=== PATIENT | male | born 1930 | race Caucasian/White ===

== ENCOUNTER 2017-06-04 12:25 | Inpatient (IN) | payer MEDICARE, OTHER ==
[~2017-06-04] VITALS: Ht 177.8 cm; Wt 93.9 kg
[~2017-06-04 12:25] MED LIST: AMLO5TAB4 PO; ASPI-605 PO; ATOR40TA PO; BISA-79 PO; CARB-93 PO; CARV20CP PO; CHOL200074 PO; DIAZ5TAB PO; ELAVIL PO; PROVENTIL HHN; PULMICORT HHN; XOPENEX HHN
--- NOTE | 2017-06-04 12:41 | NUR ---
DR THOMAS AT THE BEDSIDE FOR EVAL AND EXAM.
[2017-06-04] MEDS ORDERED: CARB-93 PO (12:56)
[2017-06-04] MEDS ORDERED: IPRA12.9 IH (12:56)
[2017-06-04] MEDS ORDERED: ACET-73 PO (12:56)
[2017-06-04] MEDS ORDERED: CBD (12:56)
[2017-06-04] MEDS ORDERED: GUAI120013 PO (12:56)
[2017-06-04] MEDS ORDERED: IV NORMAL SALINE 1000 ML BAG IV ONE (13:00)
[2017-06-04] MEDS ORDERED: AZITHROMYCIN IV 500 MG in IV DEXTROSE 5% 250 ML IV ONE (13:00)
[2017-06-04] MEDS ORDERED: CEFTRIAXONE 1 G in IV DEXTROSE 5% 50 ML IV ONE (13:00)
[2017-06-04] MEDS ORDERED: HYDR-3326 PO (13:03)
[2017-06-04] MEDS ORDERED: CANNABIS OIL SL (13:03)
[2017-06-04 13:27] LABS: BASOPHILS # (AUTO) 0.1 K/uL (0.0-8.0); BASOPHILS % (AUTO) 1.4 % (0.0-2.0); EOSINOPHILS # (AUTO) 0.1 K/uL (0.0-0.7); EOSINOPHILS % (AUTO) 0.8 % (0.0-7.0); HEMATOCRIT 40.1 % (40-50); HEMOGLOBIN 13.3 G/DL (14.0-18.0); LYMPHOCYTES # (AUTO) 1.1 K/UL (0.8-4.8); LYMPHOCYTES % (AUTO) 11.4 % (20.5-51.5); MEAN CORPUSCULAR HGB CONC 33 g/dL (32.0-37.0); MEAN CORPUSCULAR VOLUME 96.2 FL (82.0-92.0); MONOCYTES # (AUTO) 0.5 K/UL (0.1-1.30); MONOCYTES % (AUTO) 4.5 % (0.0-11.0); NEUTROPHILS # (AUTO) 8.2 K/UL (1.8-8.9); NEUTROPHILS % (AUTO) 81.9 % (38.5-71.5); PLATELET COUNT (AUTO) 188 K/UL (150-450); RED BLOOD CELL COUNT(AUTO) 4.17 MIL/UL (4.7-6.1); WHITE BLOOD COUNT (AUTO) 10.1 K/UL (4.0-11.2)
[2017-06-04 13:28] LABS: CARBON DIOXIDE 30 mmol/L (21-32); CHLORIDE 105 mmol/L (98-107); CREATININE 1.2 mg/dL (0.6-1.3); GLUCOSE 99 mg/dL (74-106); POTASSIUM 4.4 mmol/L (3.5-5.1); UREA NITROGEN, BLOOD 19 mg/dL (7-18)
[2017-06-04 13:34] LABS: ALANINE AMINOTRANSFERASE 27 U/L (16-63); ALKALINE PHOSPHATASE 58 U/L (50-136); ASPARTATE AMINOTRANSFERASE 31 U/L (15-37); BILIRUBIN,DIRECT 0.2 mg/dL (0.0-0.2); BILIRUBIN,TOTAL 0.7 mg/dL (0.2-1.0); TOTAL PROTEIN, SERUM 6.6 g/dL (6.4-8.2)
[2017-06-04] MEDS ORDERED: CEFTRIAXONE 1 G VIAL ONE (13:44)
[2017-06-04] MEDS ORDERED: AZITHROMYCIN 500 MG VIAL IV ONE (13:44)
[2017-06-04 13:49] LABS: BAND % (MANUAL) 12 % (0-10); BASOPHILS % (MANUAL) 1 % (0-2); LYMPHOCYTES % (MANUAL) 12 % (20-40); MONOCYTES % (MANUAL) 7 % (2-10); NEUTROPHILS % (MANUAL) 68 % (42-75)
[2017-06-04] MEDS ORDERED: HYDROCODONE/APAP 5-325MG TABLET PO ONE (14:15)
[2017-06-04 14:33] LABS: *BILIRUBIN,URIN NEGATIVE (NEGATIVE); *BLOOD, URINE Trace-lysed (NEGATIVE); *CLARITY,URINE CLEAR (CLEAR); *COLOR,URINE YELLOW (YELLOW); *KETONES,URINE NEGATIVE (NEGATIVE); *PROTEIN,URINE NEGATIVE (NEGATIVE); *UROBILINOGEN,URINE 0.2 E.U./dl (NORMAL); LEUKOCYTE ESTERASE ,URINE NEGATIVE (NEGATIVE); NITRITE, URINE NEGATIVE (NEGATIVE); UGLUCOSE NEGATIVE (NEGATIVE)
[2017-06-04] MEDS ORDERED: HYDROCODONE/APAP 5-325MG TABLET ONE (14:38)
[2017-06-04 14:39] LABS: BACTERIA,URINE NONE SEEN /HPF (NONE SEEN); MUCUS,URINE FEW /LPF (0-FEW); SQUAMOUS EPITHELIAL CELL,UR FEW /HPF (NONE SEEN); WBC,URINE 0-3 /HPF (0-3)
--- NOTE | 2017-06-04 14:50 | NUR ---
BELONGING LIST COMPLETED AND PLACED IN THE CHART, NOT CANDIDATE FOR MRSA.
[2017-06-04 15:48] VITALS: BP 128/61
[2017-06-04] MEDS ORDERED: TEMAZEPAM 15 MG CAPSULE PO PRN (18:15)
[2017-06-04] MEDS ORDERED: MAGNESIUM HYDROXIDE 30 ML LIQUID UDC PO PRN (18:15)
[2017-06-04] MEDS ORDERED: ONDANSETRON 4 MG/2 ML VIAL IV PRN (18:15)
[2017-06-04] MEDS ORDERED: ELAVIL 10 MG PO SCH (18:15)
[2017-06-04] MEDS ORDERED: TEMAZEPAM 7.5 MG CAPSULE PO PRN (18:45)
--- NOTE | 2017-06-04 18:46 | NUR ---
PHARMACY CLINICAL NOTES: VANCOMYCIN DOSING Subjective: 86 yo male with DX of pneumoniae. MD ordered Vanco and Zosyn Objective: bun/scr 19/1.2m wbc 10.1 temp 98.3; dosing wt = 207 lbs; blood CX and UC are pending Assessment/Plan: will dose vancomycin as 1500 mg IVPB q20h; estimated peak 38 and trough of 16.51. RX will order trough prior to 4th dose (not ordered yet) and will adjust the dose as necessary. Will continue monitoring the renal function.
--- NOTE | 2017-06-04 19:30 | NUR ---
Bedside reporting with JOSE Rascon. Patient sleeping at this time. Not in distress. HOB elevated with continuos O2 at 2L via NC, saturating 93% at this time. IVF infusing well on RW, intact and patent. No s/s of infiltration noted. Multiple skin issues noted due to reported fall at home. Safety measures and fall precaution maintained. Continue current plan of care.
[2017-06-04 20:00] VITALS: BP 121/57
[2017-06-04] MEDS ORDERED: VANCOMYCIN IV 1,500 MG in IV DEXTROSE 5% 500 ML IV SCH (20:00)
--- NOTE | 2017-06-04 20:00 | NUR ---
Pictures taken on skin problems. at bedside giving additional information regarding patient activities.
[2017-06-04] MEDS ORDERED: DIATR MEGLU/DIATRIZOATE SODIUM 30 ML SOLUTION ONE (20:46)
[2017-06-04] MEDS ORDERED: DOCUSATE SODIUM 250 MG CAPSULE PO SCH (21:00)
--- NOTE | 2017-06-04 21:00 | NUR ---
Instructed by to hold all meds due till he comes back from CT.
[2017-06-04] MEDS: ALBUTEROL SULFATE 1.25 MG/3 ML NEBU NEB PRN (21:01)
[2017-06-04] MEDS: IPRATROPIUM BROMIDE 0.5 MG/2.5 ML NEBU NEB PRN (21:01)
--- NOTE | 2017-06-04 22:30 | NUR ---
To Radiology for CT scan via bed.
[2017-06-04] MEDS ORDERED: NORMAL SALINE FLUSH 10 ML DISP.SYRIN ONE (22:53)
[2017-06-04] MEDS ORDERED: IOHEXOL 300MG/ML 100 ML INFUS..BTL ONE (22:53)
[2017-06-04] MEDS ORDERED: IV NORMAL SALINE 250 ML IV ONE (22:54)
[2017-06-04] MEDS: IV 1/2NS 1000 ML 1,000 ML IV PRN (23:13)
--- NOTE | 2017-06-04 23:15 | NUR ---
Back from CT.
[2017-06-04] MEDS: DOCUSATE SODIUM 100 MG CAPSULE PO SCH (23:21)
[2017-06-04] MEDS: AMITRIPTYLINE HCL 10 MG TABLET PO SCH (23:21)
[2017-06-04] MEDS: ATORVASTATIN 40 MG TABLET PO SCH (23:21)
[2017-06-04] MEDS: HYDROCODONE/APAP 5-325MG TABLET PO PRN (23:22)
--- NOTE | 2017-06-04 23:25 | NUR ---
Complaint of generalized pain, medicated as needed and ordered. Will monitor.
[2017-06-04] MEDS: PIPERACILLIN/TAZOBACTAM/D5W 3.375 G in PREMIXED 1 EACH IV SCH (23:26)
[2017-06-05] VITALS: BP 130/65
[2017-06-05] MEDS: ACETAMINOPHEN 325 MG TABLET PO PRN (02:41)
--- NOTE | 2017-06-05 02:43 | NUR ---
Complaint of right shoulder pain, medicated as needed. Will monitor.
[2017-06-05 04:00] VITALS: BP 101/46
[2017-06-05] MEDS: PIPERACILLIN/TAZOBACTAM/D5W 3.375 G in PREMIXED 1 EACH IV SCH ×3 (05:42→21:28)
[2017-06-05] MEDS: PANTOPRAZOLE SODIUM 40 MG TABLET.DR PO SCH (06:32)
--- NOTE | 2017-06-05 06:40 | NUR ---
Slept good. No further complaint presented. All needs attended and met. IV intact and patent, no s/s of infiltration. No significant event reported all night. Continue care as planned.
[2017-06-05 07:03] LABS: THYROID STIMULATING HORMONE 0.499 mIU/mL (0.358-3.740)
[2017-06-05 07:04] LABS: BASOPHILS % (AUTO) 0.1 % (0.0-2.0); EOSINOPHILS # (AUTO) 0.2 K/uL (0.0-0.7); EOSINOPHILS % (AUTO) 1.8 % (0.0-7.0); HEMOGLOBIN 11.6 G/DL (14.0-18.0); LYMPHOCYTES # (AUTO) 2.1 K/UL (0.8-4.8); LYMPHOCYTES % (AUTO) 19.4 % (20.5-51.5); MEAN CORPUSCULAR HEMOGLOBIN 32.3 UUG (27.0-31.0); MEAN CORPUSCULAR HGB CONC 33 g/dL (32.0-37.0); MEAN CORPUSCULAR VOLUME 98.1 FL (82.0-92.0); MONOCYTES # (AUTO) 0.7 K/UL (0.1-1.30); MONOCYTES % (AUTO) 6.7 % (0.0-11.0); NEUTROPHILS # (AUTO) 7.7 K/UL (1.8-8.9); PLATELET COUNT (AUTO) 150 K/UL (150-450); WHITE BLOOD COUNT (AUTO) 10.7 K/UL (4.0-11.2)
[2017-06-05 07:12] LABS: HEMATOCRIT 35.4 % (40-50); RED BLOOD CELL COUNT(AUTO) 3.61 MIL/UL (4.7-6.1)
[2017-06-05 07:29] LABS: ALANINE AMINOTRANSFERASE 19 U/L (16-63); ALKALINE PHOSPHATASE 51 U/L (50-136); ASPARTATE AMINOTRANSFERASE 20 U/L (15-37); BILIRUBIN,TOTAL 0.7 mg/dL (0.2-1.0); CARBON DIOXIDE 31 mmol/L (21-32); CHLORIDE 105 mmol/L (98-107); CHOLESTEROL 82 mg/dL (<200); CREATININE 1.2 mg/dL (0.6-1.3); GLUCOSE 92 mg/dL (74-106); HDL CHOLESTEROL 49 mg/dL (40-60); MAGNESIUM 1.8 mg/dL (1.8-2.4); PHOSPHOROUS 3.4 mg/dL (2.5-4.9); POTASSIUM 3.9 mmol/L (3.5-5.1); TOTAL PROTEIN, SERUM 5.7 g/dL (6.4-8.2); TRIGLYCERIDES 69 MG/DL (30-150); UREA NITROGEN, BLOOD 17 mg/dL (7-18)
--- NOTE | 2017-06-05 07:30 | NUR ---
Bedside report given to [place], RN
[2017-06-05] MEDS: AMLODIPINE 5 MG TABLET PO SCH (08:36)
[2017-06-05] MEDS: ASPIRIN EC 81 MG TABLET.DR PO SCH (08:36)
[2017-06-05] MEDS: CARBIDOPA/LEVODOPA 25-100MG TABLET PO SCH ×2 (08:37→16:23)
[2017-06-05] MEDS: HYDROCODONE/APAP 5-325MG TABLET PO PRN ×2 (08:38→20:12)
[2017-06-05 09:22] LABS: BAND % (MANUAL) 10 % (0-10); BASOPHILS % (MANUAL) 1 % (0-2); EOSINOPHILS % (MANUAL) 1 % (0-8); LYMPHOCYTES % (MANUAL) 17 % (20-40); MONOCYTES % (MANUAL) 7 % (2-10); NEUTROPHILS % (MANUAL) 64 % (42-75)
[2017-06-05] MEDS: IPRATROPIUM BROMIDE 0.5 MG/2.5 ML NEBU NEB PRN ×2 (10:25→19:59)
[2017-06-05] MEDS: ALBUTEROL SULFATE 1.25 MG/3 ML NEBU NEB PRN ×2 (10:25→19:59)
[2017-06-05 12:32] VITALS: BP 114/60
[2017-06-05 16:00] VITALS: BP 100/52
[2017-06-05] MEDS: IV 1/2NS 1000 ML 1,000 ML IV PRN (16:23)
--- NOTE | 2017-06-05 19:30 | NUR ---
RECEIVED PATIENT LAYING IN BED COMFORTABLY. HOB ELEVATED. NO ACUTE DISTRESS NOTED. SPEECH SLURRED AND DELAYED. PATIENT IS ON 02 2L NC. NOTED MULTIPLE BRUISING ON ARMS AND LEGS. SAFETY INITIATED. CALL LIGHT WITHIN REACH. FALL PRECAUTIONS INITIATED. SITTER AT BEDSIDE FOR SAFETY. WILL CONTINUE TO MONITOR
[2017-06-05] MEDS: DOCUSATE SODIUM 100 MG CAPSULE PO SCH (20:11)
[2017-06-05] MEDS: ATORVASTATIN 40 MG TABLET PO SCH (20:12)
[2017-06-05] MEDS: AMITRIPTYLINE HCL 10 MG TABLET PO SCH (20:12)
[2017-06-06] MEDS: ACETAMINOPHEN 325 MG TABLET PO PRN ×3 (00:01→20:14)
[2017-06-06] MEDS: IPRATROPIUM BROMIDE 0.5 MG/2.5 ML NEBU NEB PRN ×2 (05:15→18:38)
[2017-06-06] MEDS: ALBUTEROL SULFATE 1.25 MG/3 ML NEBU NEB PRN ×2 (05:15→18:38)
[2017-06-06] MEDS: PIPERACILLIN/TAZOBACTAM/D5W 3.375 G in PREMIXED 1 EACH IV SCH ×2 (05:25→14:41)
[2017-06-06] MEDS: HYDROCODONE/APAP 5-325MG TABLET PO PRN (05:32)
[2017-06-06] MEDS: PANTOPRAZOLE SODIUM 40 MG TABLET.DR PO SCH (06:15)
[2017-06-06 06:55] LABS: BASOPHILS % (AUTO) 0.4 % (0.0-2.0); EOSINOPHILS # (AUTO) 0.2 K/uL (0.0-0.7); EOSINOPHILS % (AUTO) 2.8 % (0.0-7.0); HEMOGLOBIN 12.2 G/DL (14.0-18.0); LYMPHOCYTES # (AUTO) 1.8 K/UL (0.8-4.8); LYMPHOCYTES % (AUTO) 26.2 % (20.5-51.5); MEAN CORPUSCULAR HEMOGLOBIN 32.8 UUG (27.0-31.0); MEAN CORPUSCULAR HGB CONC 34 g/dL (32.0-37.0); MEAN CORPUSCULAR VOLUME 96.9 FL (82.0-92.0); MONOCYTES # (AUTO) 0.4 K/UL (0.1-1.30); NEUTROPHILS # (AUTO) 4.3 K/UL (1.8-8.9); NEUTROPHILS % (AUTO) 64.6 % (38.5-71.5); PLATELET COUNT (AUTO) 153 K/UL (150-450); RED BLOOD CELL COUNT(AUTO) 3.71 MIL/UL (4.7-6.1); WHITE BLOOD COUNT (AUTO) 6.7 K/UL (4.0-11.2)
--- NOTE | 2017-06-06 07:02 | NUR ---
NO CHANGES T/O SHIFT. SITTER AT BEDSIDE. NO ACUTE DISTRESS NOTED. TELE SINUS INGE. SAFETY AND COMFORT MAINTAINED T/O SHIFT. CALL LIGHT WITHIN REACH.
[2017-06-06 07:42] LABS: ALANINE AMINOTRANSFERASE 11 U/L (16-63); ALKALINE PHOSPHATASE 54 U/L (50-136); ASPARTATE AMINOTRANSFERASE 17 U/L (15-37); BILIRUBIN,TOTAL 0.4 mg/dL (0.2-1.0); CARBON DIOXIDE 30 mmol/L (21-32); CHLORIDE 104 mmol/L (98-107); CREATININE 1.2 mg/dL (0.6-1.3); GLUCOSE 107 mg/dL (74-106); MAGNESIUM 1.9 mg/dL (1.8-2.4); PHOSPHOROUS 3.6 mg/dL (2.5-4.9); POTASSIUM 4.1 mmol/L (3.5-5.1); TOTAL PROTEIN, SERUM 6.1 g/dL (6.4-8.2); UREA NITROGEN, BLOOD 13 mg/dL (7-18)
[2017-06-06] MEDS: ASPIRIN EC 81 MG TABLET.DR PO SCH (08:14)
[2017-06-06] MEDS: CARBIDOPA/LEVODOPA 25-100MG TABLET PO SCH ×2 (08:14→17:11)
[2017-06-06] MEDS: AMLODIPINE 5 MG TABLET PO SCH (08:14)
[2017-06-06] MEDS: GENTAMICIN SULFATE OPHT DROP 5 ML BOTTLE EACHEYE SCH ×2 (10:12→14:43)
[2017-06-06 13:19] VITALS: BP 120/67
[2017-06-06 15:22] VITALS: BP 125/60
[2017-06-06] MEDS ORDERED: DOCU100C36 PO (17:25)
[2017-06-06] MEDS ORDERED: AMIT10TA32 PO (17:25)
[2017-06-06] MEDS ORDERED: MAGN400O6 PO (17:25)
[2017-06-06] MEDS ORDERED: TEMA7.5C PO (17:25)
[2017-06-06] MEDS ORDERED: BUDESONIDE 0.5 MG/2 ML NEBU NEB SCH (19:30)
--- NOTE | 2017-06-06 19:30 | NUR ---
RECEIVED PATIENT LAYING IN BED COMFORTABLY. VIVIAN AND 1:1 SITTER AT BEDSIDE. PATIENT IS ON 02 2L NC. NO ACUTE DISTRESS NOTED. WILL CONTINUE TO MONITOR. PLAN TO D/C PTNT IN ARU.
--- NOTE | 2017-06-06 20:30 | NUR ---
PATIENT WAS D/C TO ARU. TRANSPORTED VIA WHEELCHAIR. REPORT GIVEN TO KAMI OSORIO LIST WAS CHECKED. D/C PROTOCOL FOLLOWED.
[2017-06-06] MEDS ORDERED: CEFTRIAXONE 1 G in IV DEXTROSE 5% 50 ML IV SCH (21:00)
[2017-06-06] MEDS ORDERED: ALBU2.5V13 IH (22:18)
[2017-06-06] MEDS ORDERED: ZOFRAN INJ IV (22:18)
[2017-06-06] MEDS ORDERED: PANT40TA4 PO (22:18)
[2017-06-06] MEDS ORDERED: PIPE3.3711 IV (22:18)
[2017-06-06] MEDS ORDERED: GENT5DRO4 OP (22:18)
[2017-06-06] MEDS ORDERED: [UNRECOGNIZED DRUG - CODE] IV (22:18)
== END 2017-06-06 21:10 | DRG 871 ==
LOC: ER 12:25 → TELE 14:51 → MED 06-06 14:55
PROVIDERS: ADMIT Internal Medicine; ATTEND Internal Medicine
DX: A41.9 Sepsis, unspecified organism (principal); N17.0 Acute kidney failure with tubular necrosis; E43 Unspecified severe protein-calorie malnutrition; G93.40 Encephalopathy, unspecified; J69.0 Pneumonitis due to inhalation of food and vomit; G23.1 Progressive supranuclear ophthalmoplegia [Steele-Richardson-Olszewski]; D68.59 Other primary thrombophilia; G20 Parkinson's disease; Z96.653 Presence of artificial knee joint, bilateral; Z95.5 Presence of coronary angioplasty implant and graft; Z86.73 Personal history of transient ischemic attack (TIA), and cerebral infarction without residual deficits; Z90.79 Acquired absence of other genital organ(s); R13.10 Dysphagia, unspecified; N40.0 Benign prostatic hyperplasia without lower urinary tract symptoms; N35.9 Urethral stricture, unspecified; M77.9 Enthesopathy, unspecified; M51.36 Other intervertebral disc degeneration, lumbar region; K57.90 Diverticulosis of intestine, part unspecified, without perforation or abscess without bleeding; K21.9 Gastro-esophageal reflux disease without esophagitis; K40.90 Unilateral inguinal hernia, without obstruction or gangrene, not specified as recurrent; I70.8 Atherosclerosis of other arteries; I25.2 Old myocardial infarction; J44.9 Chronic obstructive pulmonary disease, unspecified; I25.10 Atherosclerotic heart disease of native coronary artery without angina pectoris; I10 Essential (primary) hypertension; E86.0 Dehydration; H10.9 Unspecified conjunctivitis; D53.9 Nutritional anemia, unspecified; J40 Bronchitis, not specified as acute or chronic; S00.03XA Contusion of scalp, initial encounter; W19.XXXA Unspecified fall, initial encounter; Y92.009 Unspecified place in unspecified non-institutional (private) residence as the place of occurrence of the external cause; Z74.09 Other reduced mobility; M19.90 Unspecified osteoarthritis, unspecified site; M25.511 Pain in right shoulder; E53.8 Deficiency of other specified B group vitamins
CPT/HCPCS: 36415; 70030-TC; 70450; 71010; 73020; 83605; 83735; 84100; 84443; 85025; 85730; 87040; 87086; 92526; 92610; 93005; 94640; 94664; 97116; 97161; 97530; A4663; J0456; J0696; J2543; J3370; J3490; J3590; J7030; J7050; J7060; Q9963; Q9967

== ENCOUNTER 2017-06-06 21:16 | Inpatient (IN) | payer MEDICARE, OTHER ==
[~2017-06-06] VITALS: Ht 165.1 cm; Wt 94.3 kg
--- NOTE | 2017-06-06 20:55 | NUR ---
ADMITTED MALE PATIENT TO ROOM 106 BY W/C FROM M/S WITH DX OF PARKINSONS. ED PARTS COUNTER SALESPERSON NOTIFIED OF ADMISSION. ORIENTED TO ROOM, CALL LIGHT, TV, LIGHTS, ARU ROUTINE. SPOUSE NOTIFIED OF PATIENT ADMISSION AND WILL COME IN TO SEE PATIENT. ADMISSION INTERVIEW DONE WITH SPOUSE. 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 NEEDS TO STAND AT BEDSIDE TO VOID IN URINAL, D/T PAST HISTORY OF BPH. HX OF FREQUENT FALLS AT HOME WITH MULTIPLE SKIN ISSUES CHARTED. CALL LIGHT WITHIN REACH AAT. BED ALARM ON ATT. SITTER AT BEDSIDE AAT TO HELP WITH PREVENTION OF FALLS. HOME MED LIST DONE
[2017-06-06 21:15] VITALS: BP 143/74
[~2017-06-06 21:16] MED LIST changes: +ACET-73 PO; +AMIT10TA32 PO; -BISA-79 PO; +CANNABIS OIL SL; -CHOL200074 PO; -DIAZ5TAB PO; +DOCU100C36 PO; +GUAI120013 PO; +HYDR-3326 PO; +IPRA12.9 IH; +MAGN400O6 PO; +TEMA7.5C PO; -XOPENEX HHN
[2017-06-06] MEDS ORDERED: Z GUARD REMEDY PASTE 57 GM TUBE TOP PRN (21:30)
--- NOTE | 2017-06-06 22:15 | NUR ---
DR STEPHENS NOTIFIED OF ADMISSION TO ARU. MILAN BE NOTIFIED OF NEED FOR MED REC TO BE COMPLETED.
[2017-06-06] MEDS ORDERED: ZOFRAN INJ IV (22:18)
[2017-06-06] MEDS ORDERED: GENT5DRO4 OP (22:18)
[2017-06-06] MEDS ORDERED: ALBU2.5V13 IH (22:18)
[2017-06-06] MEDS ORDERED: PANT40TA4 PO (22:18)
[2017-06-06] MEDS ORDERED: [UNRECOGNIZED DRUG - CODE] IV (22:18)
[2017-06-06] MEDS ORDERED: PIPE3.3711 IV (22:18)
[2017-06-06] MEDS: HYDROCODONE/APAP 5-325MG TABLET PO PRN (23:31)
[2017-06-06] MEDS: GENTAMICIN SULFATE OPHT DROP 5 ML BOTTLE EACHEYE SCH (23:31)
[2017-06-06] MEDS ORDERED: HYDROCODONE/APAP 5-325MG TABLET ONE (23:40)
[2017-06-07] MEDS: ACETAMINOPHEN 325 MG TABLET PO PRN ×3 (03:51→18:18)
[2017-06-07] MEDS ORDERED: ACETAMINOPHEN 325 MG TABLET ONE (04:03)
[2017-06-07] MEDS ORDERED: ONDANSETRON 4 MG/2 ML VIAL IV PRN (04:30)
[2017-06-07] MEDS: PIPERACILLIN/TAZOBACTAM/D5W 3.375 G in PREMIXED 1 EACH IV SCH ×2 (05:44→13:26)
[2017-06-07] MEDS: GENTAMICIN SULFATE OPHT DROP 5 ML BOTTLE EACHEYE SCH ×3 (05:44→17:14)
[2017-06-07] MEDS ORDERED: PIPERACILLIN/TAZOBACTAM/D5W 3.375 G in PREMIXED 1 EACH IV SCH (06:00)
--- NOTE | 2017-06-07 06:00 | NUR ---
slept well and is without c/o discomfort this morning after norco x1 and tylenol po given over the night. tolerating iv zosyn this morning without ill effect. afebrile. in no apparent distress this morning. call light within reach aat. bed alarm on sitter at bedside throughout the night with constant observation of patient to prevent falls. no injury obtained this shift.
[2017-06-07] MEDS: PANTOPRAZOLE SODIUM 40 MG TABLET.DR PO SCH (06:08)
[2017-06-07] MEDS ORDERED: PANTOPRAZOLE SODIUM 40 MG TABLET.DR PO ONE ×2 (06:15→06:19)
--- NOTE | 2017-06-07 07:15 | NUR ---
REC,D SBAR. PT RESTING, NO DISTRESS NOTED, PT POSITIONED FOR COMFORT.
[2017-06-07] MEDS: ASPIRIN EC 81 MG TABLET.DR PO SCH (08:35)
[2017-06-07] MEDS: CARBIDOPA/LEVODOPA 25-100MG TABLET PO SCH ×2 (08:35→16:15)
[2017-06-07] MEDS: HYDROCODONE/APAP 5-325MG TABLET PO PRN ×3 (08:36→22:16)
[2017-06-07] MEDS: AMLODIPINE 5 MG TABLET PO SCH (08:36)
[2017-06-07] MEDS ORDERED: BUDESONIDE 0.25 MG/2 ML NEBU NEB ONE (09:45)
[2017-06-07] MEDS ORDERED: BUDESONIDE 0.25 MG/2 ML NEBU NEB SCH (11:00)
--- NOTE | 2017-06-07 11:53 | NUR ---
Supervisor Scrap Preparation SW met with patient at [facility] to assess pt needs and provide support. The patient is an 86 year old male with history of Parkinson's and history of frequent falls. The patient was laying in his bed during the assessment. He was calm, pleasant, and cooperative during the interview. The patient's mood was somewhat depressed. The patient stated that his sleep has been good but his appetite has not been so good. Per pt, he lives with his and would like to return home upon discharge. The patient acknowledged his condition and the need for intervention. The patient stated that he has strong social support from his . He stated that his emergency contact is his Christine Gill . SW engaged in active listening and provided supportive counseling during the interview to address patient's depressive symptoms related to his decline in functioning. SW will continue to address issues of loss related to recent hospitalization. SW will encourage compliance with rehab goals. SW will be available as needed.
[2017-06-07] MEDS: ALBUTEROL SULFATE 1.25 MG/3 ML NEBU NEB PRN (13:23)
--- NOTE | 2017-06-07 13:55 | NUR ---
TEAM CONFERENCE MEETING 06/07/17
[2017-06-07 16:00] VITALS: BP 148/76
[2017-06-07] MEDS ORDERED: ACETAMINOPHEN ES 500 MG TABLET PO PRN (16:30)
[2017-06-07] MEDS ORDERED: HYDROCODONE/APAP 5-325MG TABLET PO PRN (16:30)
[2017-06-07] MEDS ORDERED: TEMAZEPAM 7.5 MG CAPSULE PO PRN (16:30)
[2017-06-07] MEDS ORDERED: ALBUTEROL SULFATE 2.5 MG/ 0.5 ML NEBU IH PRN (16:30)
[2017-06-07] MEDS ORDERED: MAGNESIUM HYDROXIDE 30 ML LIQUID UDC PO PRN (16:30)
[2017-06-07] MEDS ORDERED: GENTAMICIN SULFATE OPHT DROP 5 ML BOTTLE OP SCH (18:00)
--- NOTE | 2017-06-07 18:12 | NUR ---
PT PROGRESSING TOWARDS GOALS, PARTICIPATING IN ALL ACTIVITIES, TAKING ALL MEDS. CONTINUE PLAN OF CARE.
[2017-06-07] MEDS: BUDESONIDE 0.5 MG/2 ML NEBU NEB SCH (19:22)
[2017-06-07 20:00] VITALS: BP 128/68
[2017-06-07] MEDS ORDERED: ATORVASTATIN 40 MG TABLET PO SCH (21:00)
[2017-06-07] MEDS ORDERED: AMITRIPTYLINE HCL 10 MG TABLET PO SCH (21:00)
[2017-06-07] MEDS: DOCUSATE SODIUM 100 MG CAPSULE PO SCH (21:58)
[2017-06-07] MEDS: AMITRIPTYLINE HCL 10 MG TABLET PO SCH (21:58)
[2017-06-07] MEDS ORDERED: PIPERACILLIN SODIUM/TAZO 3.375 GM VIAL IV SCH (22:00)
[2017-06-07] MEDS: ATORVASTATIN 40 MG TABLET PO SCH (22:11)
--- NOTE | 2017-06-07 22:16 | NUR ---
RECEIVED TO CARE, LYING IN BED, SITTER AT BEDSIDE FOR SAFETY, WITH BED ALARM ON, AND CALL LIGHT, IN REACH. PLEASANT UPON APPROACH. SPEECH REMAINS GARBLED, BUT IS ABLE TO COMMUNICATE HIS NEEDS. PRN NORCO WAS GIVEN AT THIS TIME, FOR RIGHT ARM PAIN, 8/10 ON THE PAIN SCALE. CONTINUE TO MAINTAIN ASPIRATION PRECAUTIONS. HOB ELEVATED. ALL FLUIDS GIVEN WITH THICKENER. SWALLOWS PILLS WHOLE. NO SIGNS OF ASPIRATION, OR COUGHING, NOTED. CURRENTLY LYING IN BED. NO DISTRESS NOTED. WILL CONTINUE TO MONITOR CLOSELY.
--- NOTE | 2017-06-07 23:16 | NUR ---
STATES GOOD PAIN RELIEF, TO RIGHT ARM. CURRENTLY REPORTS 5/10, ON PAIN SCALE.
--- NOTE | 2017-06-07 23:30 | NUR ---
APPEARS TO BE ASLEEP. NO DISTRESS NOTED. WILL CONTINUE TO MONITOR CLOSELY.
[2017-06-07] MEDS ORDERED: ENOXAPARIN SODIUM 40 MG/0.4 ML DISP.SYRIN SQ SCH (23:45)
[2017-06-08] MEDS ORDERED: ENOXAPARIN SODIUM 40 MG/0.4 ML DISP.SYRIN SQ ONE (00:03)
[2017-06-08] MEDS: HYDROCODONE/APAP 5-325MG TABLET PO PRN ×4 (05:15→21:15)
[2017-06-08] MEDS: GENTAMICIN SULFATE OPHT DROP 5 ML BOTTLE EACHEYE SCH ×4 (05:15→17:10)
--- NOTE | 2017-06-08 06:15 | NUR ---
slept well, until 514, when he c/o right arm pain 6/10 on pain scale. he was given PRN norco, at that time, and as of 614, he reports good relief, 3/10. currently watching tv. sitter remainsat side. no distress noted. will continue to monitor closely.
[2017-06-08] MEDS: PANTOPRAZOLE SODIUM 40 MG TABLET.DR PO SCH (06:17)
[2017-06-08] MEDS: BUDESONIDE 0.5 MG/2 ML NEBU NEB SCH ×2 (07:10→18:23)
--- NOTE | 2017-06-08 08:10 | NUR ---
Received patient, awake in bed using ipad. Alert, and oriented x4. No S/s of distress. Still with shoulder and arm pain rated as 3/10.
[2017-06-08 08:28] VITALS: BP 138/78
[2017-06-08] MEDS: CARBIDOPA/LEVODOPA 25-100MG TABLET PO SCH ×3 (08:51→17:00)
[2017-06-08] MEDS: ASPIRIN EC 81 MG TABLET.DR PO SCH (08:56)
[2017-06-08] MEDS: AMLODIPINE 5 MG TABLET PO SCH (08:57)
[2017-06-08] MEDS ORDERED: PANTOPRAZOLE SODIUM 40 MG TABLET.DR PO SCH (09:00)
[2017-06-08] MEDS ORDERED: AMLODIPINE 5 MG TABLET PO SCH (09:00)
[2017-06-08] MEDS ORDERED: ASPIRIN EC 81 MG TABLET.DR PO SCH (09:00)
--- NOTE | 2017-06-08 09:00 | NUR ---
Patient refused to take Sinemet, informed . Discussed risks and benefits. Patient still refused
[2017-06-08] MEDS: ALBUTEROL SULFATE 1.25 MG/3 ML NEBU NEB PRN (14:30)
[2017-06-08] MEDS: ACETAMINOPHEN 325 MG TABLET PO PRN ×2 (15:29→21:06)
--- NOTE | 2017-06-08 15:33 | NUR ---
Complained of right shoulder and arm pain rated as 6/10. PRN0 Tylenol given
--- NOTE | 2017-06-08 17:13 | NUR ---
PATIENT REFUSED TO TAKE SINEMET. DISCUSSED RISKS AND BENEFITS. BUT PATIENT CLAIMS IT DOESN'T DO ANYTHING FOR HIM
--- NOTE | 2017-06-08 20:00 | NUR ---
RECEIVED PATIENT IN BED, NO SOB NO CHEST PAIN, CONT ON PAIN MANAGEMENT, CONT ON 1;1 SITTER FOR SAFETY, ASSISTED WITH TOILETING, KEPT CLEAN AND DRY.
[2017-06-08 20:20] VITALS: BP 137/72
[2017-06-08] MEDS: DOCUSATE SODIUM 100 MG CAPSULE PO SCH (21:06)
[2017-06-08] MEDS: AMITRIPTYLINE HCL 10 MG TABLET PO SCH (21:06)
[2017-06-08] MEDS: ATORVASTATIN 40 MG TABLET PO SCH (21:06)
[2017-06-08] MEDS: ENOXAPARIN SODIUM 40 MG/0.4 ML DISP.SYRIN SQ SCH (21:13)
[2017-06-09] MEDS: GENTAMICIN SULFATE OPHT DROP 5 ML BOTTLE EACHEYE SCH ×4 (01:28→16:55)
[2017-06-09] MEDS: HYDROCODONE/APAP 5-325MG TABLET PO PRN ×3 (02:00→22:14)
[2017-06-09] MEDS: PANTOPRAZOLE SODIUM 40 MG TABLET.DR PO SCH (06:25)
--- NOTE | 2017-06-09 06:49 | NUR ---
PATIENT SLEEP ON AND OFF, ON PAIN MANAGEMENT, NO SOB NO CHEST PAIN NOTED, ASSISTED WITH TOILETING, KEPT CLEAN AND DRY, CONT ON 1;1 SITTER FOR SAFETY. CONT ON 1;1 SITTER FOR SAFETY, ASSISTED TO BATHROOM FOR ELEMINATION, CALL LIGHT WITHIN REACH.
[2017-06-09] MEDS: BUDESONIDE 0.5 MG/2 ML NEBU NEB SCH ×2 (06:53→19:11)
[2017-06-09 07:45] LABS: BASOPHILS % (AUTO) 0.8 % (0.0-2.0); EOSINOPHILS # (AUTO) 0.2 K/uL (0.0-0.7); EOSINOPHILS % (AUTO) 3.7 % (0.0-7.0); HEMATOCRIT 39.6 % (40-50); LYMPHOCYTES # (AUTO) 2.2 K/UL (0.8-4.8); MEAN CORPUSCULAR HEMOGLOBIN 31.6 UUG (27.0-31.0); MEAN CORPUSCULAR HGB CONC 33 g/dL (32.0-37.0); MEAN CORPUSCULAR VOLUME 96.6 FL (82.0-92.0); MONOCYTES # (AUTO) 0.4 K/UL (0.1-1.30); MONOCYTES % (AUTO) 7.1 % (0.0-11.0); NEUTROPHILS # (AUTO) 2.1 K/UL (1.8-8.9); NEUTROPHILS % (AUTO) 42.4 % (38.5-71.5)
[2017-06-09 07:49] LABS: CARBON DIOXIDE 36 mmol/L (21-32); CHLORIDE 104 mmol/L (98-107); CREATININE 1.1 mg/dL (0.6-1.3); GLUCOSE 98 mg/dL (74-106); MAGNESIUM 1.9 mg/dL (1.8-2.4); PHOSPHOROUS 4.1 mg/dL (2.5-4.9); POTASSIUM 3.9 mmol/L (3.5-5.1); UREA NITROGEN, BLOOD 8 mg/dL (7-18)
[2017-06-09 08:01] LABS: WHITE BLOOD COUNT (AUTO) 4.9 K/UL (4.0-11.2)
[2017-06-09 08:02] LABS: PLATELET COUNT (AUTO) 233 K/UL (150-450)
[2017-06-09 08:48] VITALS: BP 157/81
[2017-06-09] MEDS: CARBIDOPA/LEVODOPA 25-100MG TABLET PO SCH ×2 (09:06→16:05)
[2017-06-09] MEDS: ASPIRIN EC 81 MG TABLET.DR PO SCH (09:06)
[2017-06-09] MEDS: AMLODIPINE 5 MG TABLET PO SCH (09:08)
[2017-06-09] MEDS: ALBUTEROL SULFATE 1.25 MG/3 ML NEBU NEB PRN (15:40)
[2017-06-09] MEDS: IPRATROPIUM BROMIDE 0.5 MG/2.5 ML NEBU NEB PRN (15:40)
[2017-06-09 19:55] VITALS: BP 138/79
[2017-06-09] MEDS: DOCUSATE SODIUM 100 MG CAPSULE PO SCH (21:36)
[2017-06-09] MEDS: ATORVASTATIN 40 MG TABLET PO SCH (21:37)
[2017-06-09] MEDS: AMITRIPTYLINE HCL 10 MG TABLET PO SCH (21:37)
[2017-06-09] MEDS: ENOXAPARIN SODIUM 40 MG/0.4 ML DISP.SYRIN SQ SCH (21:38)
[2017-06-10] MEDS: GENTAMICIN SULFATE OPHT DROP 5 ML BOTTLE EACHEYE SCH ×4 (00:17→18:10)
[2017-06-10] MEDS: HYDROCODONE/APAP 5-325MG TABLET PO PRN ×8 (00:24→22:26)
--- NOTE | 2017-06-10 00:57 | NUR ---
pt resting in bed, no s/s of distress, will continue to monitor.
[2017-06-10] MEDS: PANTOPRAZOLE SODIUM 40 MG TABLET.DR PO SCH (06:11)
--- NOTE | 2017-06-10 07:00 | NUR ---
Pt received in bed. Head to toe assessment given. OT present at bedside. Pt tolerating therapy. No pain reported. Medication administered per MD orders. Will continue to monitor throughout the shift.
[2017-06-10] MEDS: BUDESONIDE 0.5 MG/2 ML NEBU NEB SCH ×2 (07:37→19:58)
--- NOTE | 2017-06-10 07:44 | NUR ---
pt resting in bed, no s/s of distress, pain meds administered. able to sleep well last night. call light kept in reach, monitored closely during shift. endorsed to dayshift
[2017-06-10] MEDS: CARBIDOPA/LEVODOPA 25-100MG TABLET PO SCH ×2 (09:56→12:25)
[2017-06-10] MEDS: ASPIRIN EC 81 MG TABLET.DR PO SCH (09:57)
[2017-06-10] MEDS: AMLODIPINE 5 MG TABLET PO SCH (10:00)
[2017-06-10] MEDS ORDERED: DIAZEPAM 5 MG TABLET PO PRN (12:15)
[2017-06-10 14:25] VITALS: BP 138/78
[2017-06-10] MEDS: IPRATROPIUM BROMIDE 0.5 MG/2.5 ML NEBU NEB PRN (15:49)
[2017-06-10] MEDS: ALBUTEROL SULFATE 1.25 MG/3 ML NEBU NEB PRN (15:49)
[2017-06-10] MEDS: CARVEDILOL 6.25 MG TABLET PO SCH (18:09)
--- NOTE | 2017-06-10 18:46 | NUR ---
pt is stable. report given to awake overnight counselor. Pt is stable.
--- NOTE | 2017-06-10 19:10 | NUR ---
Received report from JOSE Proctor
[2017-06-10 19:16] VITALS: BP 129/66
--- NOTE | 2017-06-10 21:00 | NUR ---
Due meds given. Assessment done, took a picture of scabbed wound from left knee and left lateral head (from fall).Cleansed the wound w/ beatdine , applied hydrogel and covered w/ tegaderm., continue monitor.
[2017-06-10] MEDS: DOCUSATE SODIUM 100 MG CAPSULE PO SCH (21:25)
[2017-06-10] MEDS: AMITRIPTYLINE HCL 10 MG TABLET PO SCH (21:25)
[2017-06-10] MEDS: ATORVASTATIN 40 MG TABLET PO SCH (21:25)
[2017-06-10] MEDS: ENOXAPARIN SODIUM 40 MG/0.4 ML DISP.SYRIN SQ SCH (21:27)
--- NOTE | 2017-06-10 22:00 | NUR ---
Accompanied to restroom by sitter, ambulated w/ walker w/ standby assist. Pt is steady however when using urinal was shaking due to parkinson condition.
--- NOTE | 2017-06-11 | NUR ---
Gentamycin eye drops given KayleighCharge nurse.
[2017-06-11] MEDS: GENTAMICIN SULFATE OPHT DROP 5 ML BOTTLE EACHEYE SCH ×5 (00:38→23:05)
--- NOTE | 2017-06-11 02:00 | NUR ---
Pt continued to sleep. Breathing normally. Continue monitor.Call lights w/in reach. bed at the lowest position. Sitter remained at the bedside.
--- NOTE | 2017-06-11 04:00 | NUR ---
pt is awake, eating some snacks. Sitter at the bedside.
--- NOTE | 2017-06-11 06:00 | NUR ---
Sponge bath done c/o sitter AJ. Turned and repositioned c/o sitter, pt ambulated to bathroom w/ standby assist.
--- NOTE | 2017-06-11 06:30 | NUR ---
Given am meds as ordered, NOrco for shoulder pain 05/29, non radiating, w/ facial grimace started 30 minutes ago, achy in description.
[2017-06-11] MEDS: HYDROCODONE/APAP 5-325MG TABLET PO PRN ×2 (06:37→20:14)
[2017-06-11] MEDS: PANTOPRAZOLE SODIUM 40 MG TABLET.DR PO SCH (06:38)
--- NOTE | 2017-06-11 07:20 | NUR ---
Report given to JOSE Hernandez
--- NOTE | 2017-06-11 07:20 | NUR ---
REPORT RECEIVED.PT REMAINS AWAKE,ALERT,ABLE TO COMMUNICATE.SITTER AT BEDSIDE.DENIES PAIN,DISCOMFORT.ON ROOM AIR,NO SOB NOTED.WILL CONTINUE TO MONITOR.
[2017-06-11] MEDS: BUDESONIDE 0.5 MG/2 ML NEBU NEB SCH ×2 (07:30→19:59)
[2017-06-11] MEDS: CARVEDILOL 6.25 MG TABLET PO SCH ×2 (08:24→17:25)
[2017-06-11] MEDS: CARBIDOPA/LEVODOPA 25-100MG TABLET PO SCH (08:25)
[2017-06-11 08:26] VITALS: BP 138/75
[2017-06-11] MEDS: ASPIRIN EC 81 MG TABLET.DR PO SCH (08:26)
[2017-06-11] MEDS: AMLODIPINE 5 MG TABLET PO SCH (08:26)
--- NOTE | 2017-06-11 09:00 | NUR ---
PT ASSISTED WITH MORNING MEDICATION.NO S/S OF ASPIRATION.
--- NOTE | 2017-06-11 12:00 | NUR ---
PT AT BEDSIDE,UPDATED ON PT CONDITION.
[2017-06-11] MEDS ORDERED: CARBIDOPA/LEVODOPA 25-100MG TABLET PO PRN (13:15)
[2017-06-11] MEDS: IPRATROPIUM BROMIDE 0.5 MG/2.5 ML NEBU NEB PRN (15:15)
[2017-06-11] MEDS: ALBUTEROL SULFATE 1.25 MG/3 ML NEBU NEB PRN (15:15)
[2017-06-11] MEDS: ACETAMINOPHEN 325 MG TABLET PO PRN ×3 (15:36→23:02)
--- NOTE | 2017-06-11 18:05 | NUR ---
PT RESTING IN BED WITH SITTER AT BEDSIDE.NO C/O PAIN,DISCOMFORT.ALL NEEDS ATTENDED.
[2017-06-11 19:55] VITALS: BP 128/77
[2017-06-11] MEDS: DOCUSATE SODIUM 100 MG CAPSULE PO SCH (20:00)
[2017-06-11] MEDS: ATORVASTATIN 40 MG TABLET PO SCH (20:01)
[2017-06-11] MEDS: AMITRIPTYLINE HCL 10 MG TABLET PO SCH (20:01)
[2017-06-11] MEDS: ENOXAPARIN SODIUM 40 MG/0.4 ML DISP.SYRIN SQ SCH (20:10)
--- NOTE | 2017-06-11 20:15 | NUR ---
NSG: RECEIVED PATIENT AWAKE,ALERT,ABLE TO COMMUNICATE. SITTER AT BEDSIDE. C/O SHOULDER PAIN .ON ROOM AIR, NO SOB NOTED. NORCO 1 TAB PO GIVEN FOR PAIN. 1:1 SITTER @ BEDS SIDE FOR SAFETY ALL THE TIME. WILL CONTINUE TO MONITOR.
--- NOTE | 2017-06-11 21:16 | NUR ---
NSG: PATIENT STATED I AM FEELING BETTER NOW. PRN EFFECTIVE.
--- NOTE | 2017-06-11 23:03 | NUR ---
NSG: PATIENT C/O HEADACHE. TYLENOL 650 MG PO PRN GIVEN PER PATIENT REQUEST.
--- NOTE | 2017-06-12 00:15 | NUR ---
NSG: PATIENT STATED I AM FEELING BETTER NOW. PRN EFFECTIVE FOR HEADACHE.
--- NOTE | 2017-06-12 00:17 | NUR ---
NSG: PT RESTING IN BED EYE CLOSE, SITTER AT BEDSIDE. NO C/O PAIN,DISCOMFORT.ALL NEEDS ATTENDED.
[2017-06-12] MEDS: GENTAMICIN SULFATE OPHT DROP 5 ML BOTTLE EACHEYE SCH ×4 (05:50→23:27)
[2017-06-12] MEDS: PANTOPRAZOLE SODIUM 40 MG TABLET.DR PO SCH (06:00)
[2017-06-12] MEDS: HYDROCODONE/APAP 5-325MG TABLET PO PRN ×3 (06:06→18:53)
--- NOTE | 2017-06-12 06:06 | NUR ---
NSG: PATIENT C/O SHOULDER PAIN.NORCO 1 TAB PO GIVEN PER PATIENT REQUEST.
--- NOTE | 2017-06-12 06:21 | NUR ---
NSG: Remain calm and cooperative through the night. Sponge bath done.continue on 1:1 sitter @ bedside for safety . Turned and repositioned for comfort and skin safety. pt ambulated to bathroom w/ standby assist.continue plan of care.
[2017-06-12] MEDS: ALBUTEROL SULFATE 1.25 MG/3 ML NEBU NEB PRN (07:07)
[2017-06-12] MEDS: BUDESONIDE 0.5 MG/2 ML NEBU NEB SCH ×2 (07:08→19:10)
[2017-06-12] MEDS: IPRATROPIUM BROMIDE 0.5 MG/2.5 ML NEBU NEB PRN (07:08)
--- NOTE | 2017-06-12 07:15 | NUR ---
REC'D BEDSIDE SBAR REPORT. PT AWAKE, DENIED ANY DISTRESS, PT POSITIONED FOR COMFORT.
[2017-06-12 07:58] VITALS: BP 140/73
[2017-06-12] MEDS: AMLODIPINE 5 MG TABLET PO SCH (08:56)
[2017-06-12] MEDS: ASPIRIN EC 81 MG TABLET.DR PO SCH (08:56)
[2017-06-12] MEDS: CARVEDILOL 6.25 MG TABLET PO SCH ×2 (08:56→17:16)
[2017-06-12] MEDS: ACETAMINOPHEN 325 MG TABLET PO PRN ×2 (08:58→23:27)
--- NOTE | 2017-06-12 18:30 | NUR ---
pt progressing towards goals, pt participating in all activities. pt progressing towards goals. continue plans of care.
--- NOTE | 2017-06-12 19:30 | NUR ---
RECEIVED PATIENT AWAKE, ALERT, AND ORIENTED X 3 IN NO APPARENT DISTRESS AT PRESENT. COMFORTABLE AFTER NORCO GIVEN EARLIER. TAKING PM SNACKS WITHOUT SIGNS OF ASPIRATION. DOES HAVE EPISODES OF IMPULSIVE BEHAVIOR WHEN NEEDING TO URINATE, BY TRYING TO GET OOB QUICKLY WITHOUT HELP. 1:1 SITTER AT BEDSIDE AAT TO PREVENT FALLS. IN CONSTANT OBSERVATION OF PATIENT.BED ALARM ON AAT. IN [employer] TONIGHT. INSTRUCTED TO CALL FOR ANY NEEDS OR CONCERNS. CALL LIGHT ALSO WITHIN REACH AAT.
[2017-06-12 20:00] VITALS: BP 133/70
[2017-06-12] MEDS: ATORVASTATIN 40 MG TABLET PO SCH (21:50)
[2017-06-12] MEDS: DOCUSATE SODIUM 100 MG CAPSULE PO SCH (21:50)
[2017-06-12] MEDS: AMITRIPTYLINE HCL 10 MG TABLET PO SCH (21:50)
[2017-06-12] MEDS: ENOXAPARIN SODIUM 40 MG/0.4 ML DISP.SYRIN SQ SCH (21:51)
--- NOTE | 2017-06-13 06:00 | NUR ---
SLEPT WELL LAST NIGHT. APPEARS TO BE GETTING STRONGER THIS MORNING WHEN GETTING OOB TO STAND TO VOID. CONTINENT IN URINAL. C/O RIGHT SHOULDER ACHES. MEDICATED WITH NORCO X1.
[2017-06-13] MEDS: PANTOPRAZOLE SODIUM 40 MG TABLET.DR PO SCH (06:23)
[2017-06-13] MEDS: GENTAMICIN SULFATE OPHT DROP 5 ML BOTTLE EACHEYE SCH ×4 (06:23→23:43)
[2017-06-13] MEDS: HYDROCODONE/APAP 5-325MG TABLET PO PRN ×3 (06:27→21:38)
--- NOTE | 2017-06-13 07:40 | NUR ---
RECEIVED PATIENT ASLEEP, WITH 1:1 SITTER AT BEDSIDE. NON-LABORED BREATHING, CALL LIGHT WITHIN REACH. WILL CONTINUE TO MONITOR.
[2017-06-13] MEDS: BUDESONIDE 0.5 MG/2 ML NEBU NEB SCH ×2 (07:43→19:27)
[2017-06-13] MEDS: AMLODIPINE 5 MG TABLET PO SCH (09:55)
[2017-06-13] MEDS: ASPIRIN EC 81 MG TABLET.DR PO SCH (09:55)
[2017-06-13] MEDS: ACETAMINOPHEN 325 MG TABLET PO PRN ×2 (09:55→16:35)
[2017-06-13] MEDS: CARVEDILOL 6.25 MG TABLET PO SCH ×2 (09:56→17:43)
[2017-06-13 10:15] VITALS: BP 151/76
--- NOTE | 2017-06-13 10:15 | NUR ---
UP WITH PT. TYLENOL PRN GIVEN. COMPLAINED OF PAIN OVER SHOULDER RATED 6/10. TOLERATED THERAPY WELL. NOT IN ANY FORM OF DISTRESS.
--- NOTE | 2017-06-13 13:00 | NUR ---
PATIENT COMPLAINED OF SHOULDER AND ARM PAIN RATED 8/10. PRN NORCO GIVEN.
--- NOTE | 2017-06-13 15:46 | NUR ---
PATIENT VERBALIZES DECREASE OF PAIN AT 2/10. PATIENT RESTING IN BED
--- NOTE | 2017-06-13 19:15 | NUR ---
Patient in room laying down in bed with no distress noted. Has 1:1 sitter at bedside for safety. Patient A/Ox3 with no distress noted. denies [pain at this time. provided comfort and safety measures
[2017-06-13] MEDS: DOCUSATE SODIUM 100 MG CAPSULE PO SCH (21:29)
[2017-06-13] MEDS: AMITRIPTYLINE HCL 10 MG TABLET PO SCH (21:29)
[2017-06-13] MEDS: ATORVASTATIN 40 MG TABLET PO SCH (21:29)
[2017-06-13] MEDS: ENOXAPARIN SODIUM 40 MG/0.4 ML DISP.SYRIN SQ SCH (21:30)
[2017-06-13 21:38] VITALS: BP 157/76
[2017-06-14] MEDS: GENTAMICIN SULFATE OPHT DROP 5 ML BOTTLE EACHEYE SCH (06:51)
[2017-06-14] MEDS: PANTOPRAZOLE SODIUM 40 MG TABLET.DR PO SCH (06:51)
[2017-06-14] MEDS: HYDROCODONE/APAP 5-325MG TABLET PO PRN ×3 (06:54→20:41)
[2017-06-14] MEDS: ALBUTEROL SULFATE 1.25 MG/3 ML NEBU NEB PRN (07:13)
[2017-06-14] MEDS: BUDESONIDE 0.5 MG/2 ML NEBU NEB SCH ×2 (07:13→20:01)
[2017-06-14] MEDS: ASPIRIN EC 81 MG TABLET.DR PO SCH (09:45)
[2017-06-14] MEDS: ACETAMINOPHEN 325 MG TABLET PO PRN (09:45)
[2017-06-14] MEDS: AMLODIPINE 5 MG TABLET PO SCH (09:50)
[2017-06-14] MEDS: CARVEDILOL 6.25 MG TABLET PO SCH ×2 (09:50→17:28)
--- NOTE | 2017-06-14 19:00 | NUR ---
Patine in room laying down on bed with no distress noted. Patient has 1:1 sitter at bedside for safety. Patient able to make needs known.
[2017-06-14 20:00] VITALS: BP 116/64
[2017-06-14] MEDS: ATORVASTATIN 40 MG TABLET PO SCH (20:35)
[2017-06-14] MEDS: DOCUSATE SODIUM 100 MG CAPSULE PO SCH (20:35)
[2017-06-14] MEDS: AMITRIPTYLINE HCL 10 MG TABLET PO SCH (20:35)
[2017-06-14] MEDS: ENOXAPARIN SODIUM 40 MG/0.4 ML DISP.SYRIN SQ SCH (20:36)
[2017-06-14] MEDS ORDERED: diphenhydrAMINE 25 MG CAP PO PRN (23:15)
[2017-06-15] MEDS: PANTOPRAZOLE SODIUM 40 MG TABLET.DR PO SCH (06:10)
[2017-06-15] MEDS: HYDROCODONE/APAP 5-325MG TABLET PO PRN ×3 (06:14→20:16)
[2017-06-15 08:13] LABS: BASOPHILS % (AUTO) 0.5 % (0.0-2.0); EOSINOPHILS # (AUTO) 0.1 K/uL (0.0-0.7); EOSINOPHILS % (AUTO) 2.8 % (0.0-7.0); HEMATOCRIT 38.2 % (40-50); HEMOGLOBIN 12.6 G/DL (14.0-18.0); LYMPHOCYTES # (AUTO) 2.4 K/UL (0.8-4.8); LYMPHOCYTES % (AUTO) 45.5 % (20.5-51.5); MEAN CORPUSCULAR HEMOGLOBIN 31.8 UUG (27.0-31.0); MEAN CORPUSCULAR HGB CONC 33 g/dL (32.0-37.0); MEAN CORPUSCULAR VOLUME 96.3 FL (82.0-92.0); MONOCYTES # (AUTO) 0.4 K/UL (0.1-1.30); NEUTROPHILS # (AUTO) 2.3 K/UL (1.8-8.9); NEUTROPHILS % (AUTO) 44.2 % (38.5-71.5); PLATELET COUNT (AUTO) 222 K/UL (150-450); RED BLOOD CELL COUNT(AUTO) 3.96 MIL/UL (4.7-6.1); WHITE BLOOD COUNT (AUTO) 5.2 K/UL (4.0-11.2)
[2017-06-15] MEDS: ASPIRIN EC 81 MG TABLET.DR PO SCH (08:25)
[2017-06-15] MEDS: CARVEDILOL 6.25 MG TABLET PO SCH ×2 (08:25→17:48)
[2017-06-15] MEDS: AMLODIPINE 5 MG TABLET PO SCH (08:26)
[2017-06-15 08:30] LABS: ALANINE AMINOTRANSFERASE 36 U/L (16-63); ALKALINE PHOSPHATASE 54 U/L (50-136); ASPARTATE AMINOTRANSFERASE 29 U/L (15-37); BILIRUBIN,TOTAL 0.3 mg/dL (0.2-1.0); CARBON DIOXIDE 33 mmol/L (21-32); CHLORIDE 104 mmol/L (98-107); GLUCOSE 92 mg/dL (74-106); MAGNESIUM 1.8 mg/dL (1.8-2.4); PHOSPHOROUS 3.5 mg/dL (2.5-4.9); UREA NITROGEN, BLOOD 15 mg/dL (7-18)
[2017-06-15] MEDS ORDERED: NEO/POLYMYX B/DEXAM OPHT DROP 5 ML BOTTLE EACHEYE SCH ×2 (09:00→12:00)
[2017-06-15] MEDS: POLYVINYL ALCOHOL OPHT DROPS 15 ML BOTTLE EACHEYE PRN ×3 (09:39→21:48)
[2017-06-15] MEDS: BUDESONIDE 0.5 MG/2 ML NEBU NEB SCH ×3 (12:47→19:03)
[2017-06-15] MEDS: NEO/POLYMYX B/DEXAM OPHT DROP 5 ML BOTTLE EACHEYE SCH ×2 (16:33→21:47)
--- NOTE | 2017-06-15 19:30 | NUR ---
Patient received in bed. Sitter at bedside. Alert and verbally responsive. Able to make needs known. Denies any pain and discomfort at this time. No acute distress. No SOB. Kept clean and dry. All needs attended to promptly. Call light within reach. Will continue to monitor.
[2017-06-15 20:00] VITALS: BP 152/74
[2017-06-15] MEDS: DOCUSATE SODIUM 100 MG CAPSULE PO SCH (20:14)
[2017-06-15] MEDS: ATORVASTATIN 40 MG TABLET PO SCH (20:14)
[2017-06-15] MEDS: AMITRIPTYLINE HCL 10 MG TABLET PO SCH (20:20)
[2017-06-15] MEDS: ENOXAPARIN SODIUM 40 MG/0.4 ML DISP.SYRIN SQ SCH (20:25)
[2017-06-16] MEDS: NEO/POLYMYX B/DEXAM OPHT DROP 5 ML BOTTLE EACHEYE SCH ×4 (04:43→21:12)
--- NOTE | 2017-06-16 05:54 | NUR ---
Patient awake at this time. Sitter at bedside. Slept comfortably through out the night. All needs attended to promptly. Call light within reach. Will continue to monitor.
[2017-06-16] MEDS: PANTOPRAZOLE SODIUM 40 MG TABLET.DR PO SCH (06:16)
[2017-06-16] MEDS: BUDESONIDE 0.5 MG/2 ML NEBU NEB SCH ×2 (06:44→18:49)
--- NOTE | 2017-06-16 07:00 | NUR ---
Pt received sitting in chair, a/o x2, no distress noted. Sitter at bedside. Safety measures in place. call light within reach. Personal belongings within reach.
[2017-06-16 08:16] VITALS: BP 140/73
[2017-06-16] MEDS: ASPIRIN EC 81 MG TABLET.DR PO SCH (08:48)
[2017-06-16] MEDS: AMLODIPINE 5 MG TABLET PO SCH (08:48)
[2017-06-16] MEDS: CARVEDILOL 6.25 MG TABLET PO SCH ×2 (08:49→17:19)
[2017-06-16] MEDS: HYDROCODONE/APAP 5-325MG TABLET PO PRN ×2 (08:51→17:24)
--- NOTE | 2017-06-16 08:56 | NUR ---
Pt c/o of Left shoulder pain scale 7/10, [place] 1 tab given as requested by pt. will monitor effectiveness.
--- NOTE | 2017-06-16 13:28 | NUR ---
Pt ambulating with Physical therapist. No distress noted.
--- NOTE | 2017-06-16 17:25 | NUR ---
Pt c/o of Right shoulder pain 05/29 and requesting medication. norco 1 tab given. will monitor effectiveness.
[2017-06-16] MEDS: IPRATROPIUM BROMIDE 0.5 MG/2.5 ML NEBU NEB PRN (18:49)
[2017-06-16] MEDS: ALBUTEROL SULFATE 1.25 MG/3 ML NEBU NEB PRN (18:49)
[2017-06-16] MEDS: DOCUSATE SODIUM 100 MG CAPSULE PO SCH (21:10)
[2017-06-16] MEDS: ATORVASTATIN 40 MG TABLET PO SCH (21:10)
[2017-06-16] MEDS: ENOXAPARIN SODIUM 40 MG/0.4 ML DISP.SYRIN SQ SCH (21:11)
[2017-06-16] MEDS: AMITRIPTYLINE HCL 10 MG TABLET PO SCH (21:11)
[2017-06-16 23:00] VITALS: BP 129/57
[2017-06-17] MEDS: HYDROCODONE/APAP 5-325MG TABLET PO PRN ×3 (00:11→17:54)
[2017-06-17] MEDS: NEO/POLYMYX B/DEXAM OPHT DROP 5 ML BOTTLE EACHEYE SCH ×4 (04:53→21:22)
[2017-06-17] MEDS: PANTOPRAZOLE SODIUM 40 MG TABLET.DR PO SCH (06:07)
--- NOTE | 2017-06-17 06:15 | NUR ---
Patient complained of no BM x 3 days. Gave patient prune juice. Paged Dr. Lu, awaiting for call back.
[2017-06-17] MEDS: BUDESONIDE 0.5 MG/2 ML NEBU NEB SCH ×2 (06:48→18:56)
--- NOTE | 2017-06-17 08:30 | NUR ---
Received patient awake, alert, verbally responsive, coherent, afebrile, not in any form of acute distress. Environmental safety check done. Assisted to his needs. Call light placed within reach. Reminded to use call light for assistance. Sitter at bedside.
[2017-06-17 08:41] VITALS: BP 131/71
[2017-06-17] MEDS: AMLODIPINE 5 MG TABLET PO SCH (09:01)
[2017-06-17] MEDS: ASPIRIN EC 81 MG TABLET.DR PO SCH (09:02)
[2017-06-17] MEDS: CARVEDILOL 6.25 MG TABLET PO SCH ×2 (09:02→17:35)
[2017-06-17] MEDS: ALBUTEROL SULFATE 1.25 MG/3 ML NEBU NEB PRN (11:21)
[2017-06-17] MEDS: IPRATROPIUM BROMIDE 0.5 MG/2.5 ML NEBU NEB PRN (11:21)
[2017-06-17] MEDS: POLYVINYL ALCOHOL OPHT DROPS 15 ML BOTTLE EACHEYE PRN (17:55)
[2017-06-17] MEDS ORDERED: BISACODYL 10 MG SUPP.RECT RC PRN (19:00)
--- NOTE | 2017-06-17 19:10 | NUR ---
Spoke to Dr. Lu regarding patient's complain of no BM x 3 days and MD ordered Dulcolax suppository 10 PRN daily. Patient made aware.
--- NOTE | 2017-06-17 19:30 | NUR ---
Received patient in bed. Alert and verbally responsive. Able to make needs known. Denies any pain and discomfort. No acute distress. Sitter at bedside. All needs attended to promptly. Call light within reach. Will continue to monitor.
--- NOTE | 2017-06-17 20:00 | NUR ---
Made patient aware of Suppository ordered by MD due to patient c/o not having a BM for the past 3 days, per day shift. Patient refused suppository and verbalized he did not need it. Verbalized that he was fine and he'll be going home tomorrow. He says he did not need our help. Explained benefits and risks and still strongly refused. No c/o pain and discomfort. No distention noted. Kept clean and dry. All needs attended to promptly. Call light within reach. Will continue to monitor.
[2017-06-17 20:14] VITALS: BP 120/63
[2017-06-17] MEDS: ATORVASTATIN 40 MG TABLET PO SCH (21:21)
[2017-06-17] MEDS: AMITRIPTYLINE HCL 10 MG TABLET PO SCH (21:21)
[2017-06-17] MEDS: DOCUSATE SODIUM 100 MG CAPSULE PO SCH (21:21)
[2017-06-17] MEDS: ENOXAPARIN SODIUM 40 MG/0.4 ML DISP.SYRIN SQ SCH (21:28)
[2017-06-18] MEDS: HYDROCODONE/APAP 5-325MG TABLET PO PRN ×3 (00:29→12:49)
[2017-06-18] MEDS: NEO/POLYMYX B/DEXAM OPHT DROP 5 ML BOTTLE EACHEYE SCH ×2 (04:00→09:21)
[2017-06-18] MEDS: PANTOPRAZOLE SODIUM 40 MG TABLET.DR PO SCH (06:27)
--- NOTE | 2017-06-18 06:58 | NUR ---
Patient awake. Slept comfortably throughout the night. 7am medications given. C/o pain in right arm of 8/10. Pain medication given. Tolerated well. Sitter at bedside. All needs attended to promptly. Call light within reach. Will continue to monitor.
--- NOTE | 2017-06-18 07:46 | NUR ---
Received patient awake in bed, alert, verbally responsive, able to make needs known. He is afebrile, not in any form of acute distress. He states relief of pain from [place] that shift superintendent nurse gave. Assisted to his needs. Call light placed within reach. Sitter at bedside.
[2017-06-18] MEDS: ASPIRIN EC 81 MG TABLET.DR PO SCH (08:23)
[2017-06-18] MEDS: CARVEDILOL 6.25 MG TABLET PO SCH (08:23)
[2017-06-18] MEDS: AMLODIPINE 5 MG TABLET PO SCH (08:23)
[2017-06-18] MEDS: ALBUTEROL SULFATE 1.25 MG/3 ML NEBU NEB PRN (09:01)
[2017-06-18] MEDS: IPRATROPIUM BROMIDE 0.5 MG/2.5 ML NEBU NEB PRN (09:01)
[2017-06-18] MEDS: BUDESONIDE 0.5 MG/2 ML NEBU NEB SCH (09:01)
[2017-06-18 09:18] VITALS: BP 134/63
--- NOTE | 2017-06-18 10:45 | NUR ---
Dr. Muse came to see patient with order OK for discharge to home today. Patient awake, up in bed watching TV. He remains alert, verbally responsive, able to make his needs known. No complain of pain or discomfort at this time. Sitter at bedside.
--- NOTE | 2017-06-18 11:40 | NUR ---
Spoke to Dr. Lu regarding medication reconciliation for discharge and per MD patient will continue his previous home medications and that MD already spoke to saying patient does not need prescription, have everything at home.
--- NOTE | 2017-06-18 13:00 | NUR ---
Patient discharged to home picked up by via private car. Discharge instructions provided to patient and . Informed that will have pharmacy for home medication instructions but per no need. Discharge papers signed by and provided to the . All belongings brought with the patient. He remains alert, verbally responsive, not in any form of acute distress, able to ambulate with walker with standby assist. Patient had a BM prior discharge.
== END 2017-06-18 13:00 | disposition home health service (06) | DRG 56 ==
PROVIDERS: ADMIT Internal Medicine; ATTEND Physical Medicine & Rehabilitation Pain Medicine
DX: G20 Parkinson's disease (principal); G93.49 Other encephalopathy; E43 Unspecified severe protein-calorie malnutrition; J69.0 Pneumonitis due to inhalation of food and vomit; D68.59 Other primary thrombophilia; J44.0 Chronic obstructive pulmonary disease with (acute) lower respiratory infection; N39.0 Urinary tract infection, site not specified; G23.1 Progressive supranuclear ophthalmoplegia [Steele-Richardson-Olszewski]; E78.5 Hyperlipidemia, unspecified; I10 Essential (primary) hypertension; I25.10 Atherosclerotic heart disease of native coronary artery without angina pectoris; M19.90 Unspecified osteoarthritis, unspecified site; N40.0 Benign prostatic hyperplasia without lower urinary tract symptoms; N35.9 Urethral stricture, unspecified; Z91.81 History of falling; R05 Cough; Z90.79 Acquired absence of other genital organ(s); I25.2 Old myocardial infarction; Z95.5 Presence of coronary angioplasty implant and graft; D64.9 Anemia, unspecified; E86.0 Dehydration; H10.9 Unspecified conjunctivitis; M19.011 Primary osteoarthritis, right shoulder; K57.90 Diverticulosis of intestine, part unspecified, without perforation or abscess without bleeding; F02.80 Dementia in other diseases classified elsewhere, unspecified severity, without behavioral disturbance, psychotic disturbance, mood disturbance, and anxiety; K21.9 Gastro-esophageal reflux disease without esophagitis; K59.00 Constipation, unspecified; M51.36 Other intervertebral disc degeneration, lumbar region; R13.10 Dysphagia, unspecified; Z86.73 Personal history of transient ischemic attack (TIA), and cerebral infarction without residual deficits; Z96.653 Presence of artificial knee joint, bilateral; R47.1 Dysarthria and anarthria; F41.9 Anxiety disorder, unspecified; R26.9 Unspecified abnormalities of gait and mobility; S09.90XD Unspecified injury of head, subsequent encounter; W19.XXXD Unspecified fall, subsequent encounter; E88.09 Other disorders of plasma-protein metabolism, not elsewhere classified; K40.90 Unilateral inguinal hernia, without obstruction or gangrene, not specified as recurrent
CPT/HCPCS: 36415; 71010; 83735; 84100; 85025; 92526; 92610; 94640; 97110; 97112; 97116; 97161; 97530; 97535; A4663; J1650; J2543; J3590

== ENCOUNTER 2018-01-16 22:56 | Emergency (ER) | payer MEDICARE, OTHER ==
[~2018-01-16] VITALS: Ht 175.3 cm; Wt 81.6 kg
[~2018-01-16 22:56] MED LIST changes: +ALBU2.5V13 IH; -CANNABIS OIL SL; -CARV20CP PO; -ELAVIL PO; +GENT5DRO4 OP; -GUAI120013 PO; +PANT40TA4 PO; +PIPE3.3711 IV; -PROVENTIL HHN; +ZOFRAN INJ IV; +[UNRECOGNIZED DRUG - CODE] IV
--- NOTE | 2018-01-16 23:11 | NUR ---
C/O LOWER BACK PAIN 5/10 S/P MECH. 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 REPORTS NORCO X 2 LABVIEW PROGRAMMER( TIME UNKNOWN),PT A&OX4. BREATH SOUNDS REGULAR AND UNLABORED. NO CARDIOVASCULAR DISTRESS. VSS. WILL CONTINUE TO MONITOR STATUS. SPOUSE AT BEDSIDE.
[2018-01-17] MEDS ORDERED: HYDROCODONE/APAP 10-325 MG TABLET ONE (00:12)
[2018-01-17] MEDS ORDERED: HYDROCODONE/APAP 10-325 MG TABLET PO ONE (00:15)
--- NOTE | 2018-01-17 00:15 | NUR ---
Patient discharged to home in stable conditon. Written and verbal after care instructions given. Patient verbalizes understanding of instructions. Patient left in wheelchair. Patient left with all belonging.
[2018-01-17 00:32] VITALS: BP 108/50
== END 2018-01-17 00:15 | disposition home or self-care (01) ==
LOC: ER 22:57
DX: M54.5 Low back pain (principal); I10 Essential (primary) hypertension; I25.2 Old myocardial infarction; J44.9 Chronic obstructive pulmonary disease, unspecified; K21.9 Gastro-esophageal reflux disease without esophagitis; F17.210 Nicotine dependence, cigarettes, uncomplicated; Z79.82 Long term (current) use of aspirin; Z79.899 Other long term (current) drug therapy
CPT/HCPCS: 72100; 99284; A4663

== ENCOUNTER 2018-05-31 11:45 | Inpatient (IN) | payer MEDICARE, OTHER ==
[~2018-05-31] VITALS: Ht 180.3 cm; Wt 83.9 kg
[2018-05-31] MEDS ORDERED: IV NORMAL SALINE 500 ML BAG IV ONE (12:15)
[2018-05-31 12:38] LABS: CARBON DIOXIDE 29 mmol/L (21-32); CHLORIDE 104 mmol/L (98-107); GLUCOSE 121 mg/dL (74-106); POTASSIUM 4.2 mmol/L (3.5-5.1); UREA NITROGEN, BLOOD 23 mg/dL (7-18)
[2018-05-31 12:43] LABS: ALANINE AMINOTRANSFERASE 15 U/L (16-63); ALKALINE PHOSPHATASE 72 U/L (50-136); ASPARTATE AMINOTRANSFERASE 15 U/L (15-37); BILIRUBIN,DIRECT 0.1 mg/dL (0.0-0.2); BILIRUBIN,TOTAL 0.4 mg/dL (0.2-1.0); LIPASE 64 U/L (73-393); TOTAL PROTEIN, SERUM 6.1 g/dL (6.4-8.2)
[2018-05-31 12:46] LABS: BASOPHILS % (AUTO) 0.2 % (0.0-2.0); EOSINOPHILS % (AUTO) 0.3 % (0.0-7.0); HEMATOCRIT 38.8 % (36.7-47.1); HEMOGLOBIN 12.6 g/dL (12.5-16.3); LYMPHOCYTES # (AUTO) 1.6 K/uL (20.0-40.0); LYMPHOCYTES % (AUTO) 12.6 % (20.5-51.5); MEAN CORPUSCULAR HEMOGLOBIN 30.6 uug (23.8-33.4); MEAN CORPUSCULAR HGB CONC 32 g/dL (32.5-36.3); MEAN CORPUSCULAR VOLUME 94.6 fL (73.0-96.2); MONOCYTES # (AUTO) 0.7 K/uL (2.0-10.0); MONOCYTES % (AUTO) 5.5 % (0.0-11.0); NEUTROPHILS # (AUTO) 10.3 K/uL (1.8-8.9); NEUTROPHILS % (AUTO) 81.4 % (38.5-71.5); PLATELET COUNT (AUTO) 178 K/uL (152-348); WHITE BLOOD COUNT (AUTO) 12.6 K/uL (3.6-10.2)
[2018-05-31] MEDS ORDERED: POLY30DR OP (13:22)
[2018-05-31] MEDS ORDERED: POLY17PO4 PO (13:22)
[2018-05-31] MEDS ORDERED: CEFTRIAXONE 1 G in IV DEXTROSE 5% 50 ML IV ONE (13:45)
[2018-05-31] MEDS ORDERED: CEFTRIAXONE 1 G VIAL ONE (14:08)
[2018-05-31] MEDS ORDERED: ACETAMINOPHEN 325 MG TABLET PO PRN (14:45)
[2018-05-31] MEDS ORDERED: ONDANSETRON 4 MG/2 ML VIAL IV PRN (14:45)
[2018-05-31] MEDS ORDERED: Z GUARD REMEDY PASTE 57 GM TUBE TOP PRN (14:45)
[2018-05-31] MEDS ORDERED: MAGNESIUM HYDROXIDE 30 ML LIQUID UDC PO PRN (14:45)
[2018-05-31 15:15] VITALS: BP 130/58
[2018-05-31 15:24] LABS: *BILIRUBIN,URIN NEGATIVE (NEGATIVE); *BLOOD, URINE Trace-intact (NEGATIVE); *CLARITY,URINE CLEAR (CLEAR); *COLOR,URINE YELLOW (YELLOW); *KETONES,URINE NEGATIVE (NEGATIVE); *PROTEIN,URINE NEGATIVE (NEGATIVE); *UROBILINOGEN,URINE 0.2 E.U./dl (NORMAL); LEUKOCYTE ESTERASE ,URINE NEGATIVE (NEGATIVE); NITRITE, URINE NEGATIVE (NEGATIVE); UGLUCOSE NEGATIVE (NEGATIVE)
[2018-05-31 16:10] LABS: MUCUS,URINE MODERATE /LPF (0-FEW); SQUAMOUS EPITHELIAL CELL,UR FEW /HPF (NONE SEEN)
[2018-05-31] MEDS: POLYVINYL ALCOHOL OPHT DROPS 15 ML BOTTLE EACHEYE SCH (17:00)
[2018-05-31] MEDS ORDERED: POVIDONE OP SCH (17:00)
[2018-05-31] MEDS ORDERED: POLYVINYL ALCOHOL OP SCH (17:00)
[2018-05-31] MEDS: CARBIDOPA/LEVODOPA 25-100MG TABLET PO SCH (17:13)
[2018-05-31] MEDS: IV NS 1000 ML 1,000 ML IV PRN (17:13)
[2018-05-31] MEDS ORDERED: CARV20CP PO (17:24)
[2018-05-31] MEDS: ALBUTEROL SULFATE 2.5 MG/ 0.5 ML NEBU IH PRN (18:29)
[2018-05-31 19:00] VITALS: BP 130/58
[2018-05-31] MEDS: ATORVASTATIN 40 MG TABLET PO SCH (20:20)
[2018-05-31] MEDS: DOCUSATE SODIUM 100 MG CAPSULE PO SCH (20:21)
[2018-06-01] MEDS: ALBUTEROL SULFATE 2.5 MG/ 0.5 ML NEBU IH PRN ×2 (03:33→14:04)
[2018-06-01 04:00] VITALS: BP 145/65
[2018-06-01 06:41] LABS: EOSINOPHILS # (AUTO) 0.1 K/uL (0.0-0.7); HEMATOCRIT 36.8 % (36.7-47.1); HEMOGLOBIN 12.2 g/dL (12.5-16.3); MONOCYTES # (AUTO) 0.7 K/uL (2.0-10.0); MONOCYTES % (AUTO) 7.2 % (0.0-11.0)
[2018-06-01] MEDS: IV NS 1000 ML 1,000 ML IV PRN (06:42)
[2018-06-01 06:49] LABS: CARBON DIOXIDE 29 mmol/L (21-32); CHLORIDE 105 mmol/L (98-107); CREATININE 0.8 mg/dL (0.6-1.3); GLUCOSE 89 mg/dL (74-106); MAGNESIUM 1.7 mg/dL (1.8-2.4); UREA NITROGEN, BLOOD 18 mg/dL (7-18)
[2018-06-01 06:52] LABS: BASOPHILS % (AUTO) 0.2 % (0.0-2.0); EOSINOPHILS % (AUTO) 1.2 % (0.0-7.0); LYMPHOCYTES # (AUTO) 1.7 K/uL (20.0-40.0); LYMPHOCYTES % (AUTO) 18.6 % (20.5-51.5); MEAN CORPUSCULAR HEMOGLOBIN 31.6 uug (23.8-33.4); MEAN CORPUSCULAR HGB CONC 33 g/dL (32.5-36.3); MEAN CORPUSCULAR VOLUME 95.1 fL (73.0-96.2); NEUTROPHILS # (AUTO) 6.8 K/uL (1.8-8.9); NEUTROPHILS % (AUTO) 72.8 % (38.5-71.5); PLATELET COUNT (AUTO) 150 K/uL (152-348); RED BLOOD CELL COUNT(AUTO) 3.87 MIL/uL (4.06-5.63); WHITE BLOOD COUNT (AUTO) 9.3 K/uL (3.6-10.2)
[2018-06-01] MEDS: CARBIDOPA/LEVODOPA 25-100MG TABLET PO SCH ×2 (08:06→16:52)
[2018-06-01] MEDS: ASPIRIN EC 81 MG TABLET.DR PO SCH (08:06)
[2018-06-01] MEDS: AMLODIPINE 5 MG TABLET PO SCH (08:06)
[2018-06-01] MEDS: POLYVINYL ALCOHOL OPHT DROPS 15 ML BOTTLE EACHEYE SCH ×3 (08:07→16:52)
[2018-06-01] MEDS: MAGNESIUM SULFATE/D5W 100 ML IV SCH ×2 (08:56→09:46)
[2018-06-01] MEDS: MIRALAX 17 GM POWD.PACK PO SCH (09:00)
[2018-06-01 09:51] LABS: BILIRUBIN,DIRECT 0.2 mg/dL (0.0-0.2); BILIRUBIN,TOTAL 0.6 mg/dL (0.2-1.0); TOTAL PROTEIN, SERUM 5.7 g/dL (6.4-8.2)
[2018-06-01 10:37] LABS: THYROID STIMULATING HORMONE 0.271 mIU/mL (0.358-3.740)
[2018-06-01] MEDS: BLOOD SUGAR DIAGNOSTIC 1 EACH STRIP VI SCH ×5 (11:52→20:22)
[2018-06-01 11:53] VITALS: BP 139/59
[2018-06-01] MEDS ORDERED: NOVASOURCE RENAL 237 ML LIQUID PO SCH (13:30)
[2018-06-01 15:59] VITALS: BP 153/85
[2018-06-01] MEDS: ENSURE ENLIVE (VAN) 240 ML LIQUID PO SCH (17:17)
[2018-06-01] MEDS: CARVEDILOL 6.25 MG TABLET PO SCH (17:22)
[2018-06-01] MEDS: BUDESONIDE 0.25 MG/2 ML NEBU NEB SCH (19:59)
[2018-06-01 20:00] VITALS: BP 159/63
[2018-06-01] MEDS: ATORVASTATIN 40 MG TABLET PO SCH (20:22)
[2018-06-01] MEDS: DOCUSATE SODIUM 100 MG CAPSULE PO SCH (20:22)
[2018-06-02] MEDS: IV NS 1000 ML 1,000 ML IV PRN (00:59)
[2018-06-02 03:46] VITALS: BP 155/65
[2018-06-02 06:06] LABS: BASOPHILS % (AUTO) 0.4 % (0.0-2.0); EOSINOPHILS # (AUTO) 0.1 K/uL (0.0-0.7); EOSINOPHILS % (AUTO) 1.9 % (0.0-7.0); HEMATOCRIT 38.1 % (36.7-47.1); HEMOGLOBIN 12.6 g/dL (12.5-16.3); LYMPHOCYTES # (AUTO) 1.6 K/uL (20.0-40.0); LYMPHOCYTES % (AUTO) 23.8 % (20.5-51.5); MEAN CORPUSCULAR HEMOGLOBIN 31.3 uug (23.8-33.4); MEAN CORPUSCULAR HGB CONC 33 g/dL (32.5-36.3); MEAN CORPUSCULAR VOLUME 94.7 fL (73.0-96.2); MONOCYTES # (AUTO) 0.6 K/uL (2.0-10.0); MONOCYTES % (AUTO) 8.9 % (0.0-11.0); NEUTROPHILS # (AUTO) 4.4 K/uL (1.8-8.9); PLATELET COUNT (AUTO) 156 K/uL (152-348); RED BLOOD CELL COUNT(AUTO) 4.03 MIL/uL (4.06-5.63); WHITE BLOOD COUNT (AUTO) 6.8 K/uL (3.6-10.2)
[2018-06-02] MEDS: BLOOD SUGAR DIAGNOSTIC 1 EACH STRIP VI SCH ×3 (06:13→07:30)
[2018-06-02 06:24] LABS: CARBON DIOXIDE 32 mmol/L (21-32); CHLORIDE 105 mmol/L (98-107); CHOLESTEROL 78 mg/dL (<200); CREATININE 0.8 mg/dL (0.6-1.3); GLUCOSE 107 mg/dL (74-106); HDL CHOLESTEROL 48 mg/dL (40-60); POTASSIUM 3.9 mmol/L (3.5-5.1); TRIGLYCERIDES 31 MG/DL (30-150); UREA NITROGEN, BLOOD 13 mg/dL (7-18)
[2018-06-02] MEDS: CARVEDILOL 6.25 MG TABLET PO SCH ×2 (07:59→17:00)
[2018-06-02] MEDS: CARBIDOPA/LEVODOPA 25-100MG TABLET PO SCH ×2 (08:00→16:28)
[2018-06-02] MEDS: AMLODIPINE 5 MG TABLET PO SCH (08:00)
[2018-06-02] MEDS: ASPIRIN EC 81 MG TABLET.DR PO SCH (08:00)
[2018-06-02] MEDS: MIRALAX 17 GM POWD.PACK PO SCH (08:00)
[2018-06-02] MEDS: POLYVINYL ALCOHOL OPHT DROPS 15 ML BOTTLE EACHEYE SCH ×3 (08:00→16:27)
[2018-06-02] MEDS: ENSURE ENLIVE (VAN) 240 ML LIQUID PO SCH ×3 (08:01→17:14)
[2018-06-02] MEDS: ALBUTEROL SULFATE 2.5 MG/ 0.5 ML NEBU IH PRN ×2 (08:04→14:57)
[2018-06-02] MEDS: BUDESONIDE 0.25 MG/2 ML NEBU NEB SCH ×2 (08:04→19:22)
[2018-06-02] MEDS: HYDROCODONE/APAP 5-325MG TABLET PO PRN (09:37)
[2018-06-02 15:07] VITALS: BP 129/62
[2018-06-02 19:20] VITALS: BP 104/59
[2018-06-02] MEDS: DOCUSATE SODIUM 100 MG CAPSULE PO SCH (20:09)
[2018-06-02] MEDS: ATORVASTATIN 40 MG TABLET PO SCH (20:09)
[2018-06-02] MEDS ORDERED: AMITRIPTYLINE HCL 10 MG TABLET PO SCH (21:00)
[2018-06-03 03:30] VITALS: BP 144/70
[2018-06-03] MEDS: BUDESONIDE 0.25 MG/2 ML NEBU NEB SCH (07:53)
[2018-06-03] MEDS: ASPIRIN EC 81 MG TABLET.DR PO SCH (08:03)
[2018-06-03] MEDS: CARBIDOPA/LEVODOPA 25-100MG TABLET PO SCH ×2 (08:03→17:29)
[2018-06-03] MEDS: POLYVINYL ALCOHOL OPHT DROPS 15 ML BOTTLE EACHEYE SCH ×3 (08:03→17:30)
[2018-06-03] MEDS: AMLODIPINE 5 MG TABLET PO SCH (08:05)
[2018-06-03] MEDS: MIRALAX 17 GM POWD.PACK PO SCH (08:06)
[2018-06-03] MEDS: CARVEDILOL 6.25 MG TABLET PO SCH ×2 (08:06→17:30)
[2018-06-03] MEDS: ENSURE ENLIVE (VAN) 240 ML LIQUID PO SCH ×3 (08:06→17:29)
[2018-06-03] MEDS: HYDROCODONE/APAP 5-325MG TABLET PO PRN (08:14)
[2018-06-03 11:24] VITALS: BP 124/56
[2018-06-03] MEDS: ALBUTEROL SULFATE 2.5 MG/ 0.5 ML NEBU IH PRN (11:59)
[2018-06-03 15:12] VITALS: BP 124/55
[2018-06-03 17:30] VITALS: BP 124/56
[2018-06-03] MEDS ORDERED: ALBUTEROL SULFATE 2.5 MG/ 0.5 ML NEBU IH SCH (18:00)
[2018-06-03] MEDS ORDERED: CARV6.25 PO (18:39)
[2018-06-03] MEDS ORDERED: MAGN400O6 PO (18:54)
[2018-06-03] MEDS ORDERED: POLY17PO4 PO (18:54)
[2018-06-03] MEDS ORDERED: ONDA4TAB5 IV (18:54)
[2018-06-03] MEDS ORDERED: BUDE0.253 IH (19:02)
[2018-06-03] MEDS ORDERED: LACT-246 PO (19:02)
== END 2018-06-03 18:20 | DRG 69 ==
LOC: ER 11:45 → MED 14:20
PROVIDERS: ADMIT Internal Medicine; ATTEND Internal Medicine
DX: G45.9 Transient cerebral ischemic attack, unspecified (principal); N17.0 Acute kidney failure with tubular necrosis; G93.41 Metabolic encephalopathy; G23.1 Progressive supranuclear ophthalmoplegia [Steele-Richardson-Olszewski]; E44.0 Moderate protein-calorie malnutrition; R65.10 Systemic inflammatory response syndrome (SIRS) of non-infectious origin without acute organ dysfunction; G81.91 Hemiplegia, unspecified affecting right dominant side; E78.5 Hyperlipidemia, unspecified; I25.10 Atherosclerotic heart disease of native coronary artery without angina pectoris; I10 Essential (primary) hypertension; N40.0 Benign prostatic hyperplasia without lower urinary tract symptoms; M19.90 Unspecified osteoarthritis, unspecified site; E83.42 Hypomagnesemia; I25.2 Old myocardial infarction; D63.8 Anemia in other chronic diseases classified elsewhere; J44.9 Chronic obstructive pulmonary disease, unspecified; G20 Parkinson's disease; K21.9 Gastro-esophageal reflux disease without esophagitis; Z95.5 Presence of coronary angioplasty implant and graft; Z68.20 Body mass index [BMI] 20.0-20.9, adult; Z79.899 Other long term (current) drug therapy; Z96.653 Presence of artificial knee joint, bilateral; Z79.82 Long term (current) use of aspirin; Z79.51 Long term (current) use of inhaled steroids; Z91.81 History of falling; Z86.73 Personal history of transient ischemic attack (TIA), and cerebral infarction without residual deficits
CPT/HCPCS: 36415; 70030-TC; 70450; 71045; 83605; 83690; 83735; 84100; 84443; 85025; 85651; 85730; 87040; 87086; 92610; 93005; 93307; 93880; 94640; 94664; 97165; A4663; J0696; J3475; J3590; J7030; J7040; J7060

== ENCOUNTER 2018-06-03 18:28 | Inpatient (IN) | payer MEDICARE, OTHER ==
[~2018-06-03] VITALS: Ht 180.3 cm; Wt 83.9 kg
[~2018-06-03 18:28] MED LIST changes: +CARV20CP PO; -GENT5DRO4 OP; -MAGN400O6 PO; -PANT40TA4 PO; -PIPE3.3711 IV; +POLY17PO4 PO; +POLY30DR OP; -TEMA7.5C PO; -ZOFRAN INJ IV; -[UNRECOGNIZED DRUG - CODE] IV
[2018-06-03 18:39] VITALS: BP 134/56
[2018-06-03] MEDS ORDERED: CARV6.25 PO (18:39)
[2018-06-03] MEDS ORDERED: POLY17PO4 PO (18:54)
[2018-06-03] MEDS ORDERED: ONDA4TAB5 IV (18:54)
[2018-06-03] MEDS ORDERED: MAGN400O6 PO (18:54)
[2018-06-03] MEDS ORDERED: LACT-246 PO (19:02)
[2018-06-03] MEDS ORDERED: BUDE0.253 IH (19:02)
[2018-06-03] MEDS ORDERED: Z GUARD REMEDY PASTE 57 GM TUBE TOP PRN (19:30)
--- NOTE | 2018-06-03 19:30 | NUR ---
Received patient awake during initial rounds. at bedside. Denies any pain/discomforts.No s/s of respiratory distress noted. Communicated through the use of Ipad/cell phone/texting. Continue care as plan.
[2018-06-03 20:00] VITALS: BP 117/57
[2018-06-03] MEDS: ALBUTEROL SULFATE 2.5 MG/ 0.5 ML NEBU NEB PRN (22:12)
[2018-06-03] MEDS ORDERED: MAGNESIUM HYDROXIDE 30 ML LIQUID UDC PO PRN (22:30)
[2018-06-03] MEDS ORDERED: ONDANSETRON HCL 4 MG TABLET PO PRN (22:30)
[2018-06-03] MEDS ORDERED: ACETAMINOPHEN 325 MG TABLET PO PRN (22:30)
[2018-06-03] MEDS: AMITRIPTYLINE HCL 10 MG TABLET PO SCH (23:55)
--- NOTE | 2018-06-03 23:55 | NUR ---
Unable to give Elavil, patients sound asleep. Re assess needs.
[2018-06-04] MEDS ORDERED: AMITRIPTYLINE HCL 10 MG TABLET ONE (00:44)
[2018-06-04 04:00] VITALS: BP 133/69
[2018-06-04] MEDS: HYDROCODONE/APAP 5-325MG TABLET PO PRN ×2 (04:45→20:08)
--- NOTE | 2018-06-04 04:52 | NUR ---
Awakened, screaming,complaining of headache, Medicated as needed. Will monitor.
[2018-06-04] MEDS: IPRATROPIUM BROMIDE 0.5 MG/2.5 ML NEBU NEB PRN ×4 (05:38→22:34)
[2018-06-04] MEDS: ALBUTEROL SULFATE 2.5 MG/ 0.5 ML NEBU NEB PRN ×4 (05:38→22:34)
--- NOTE | 2018-06-04 06:25 | NUR ---
Shift End Report:Slept good. No further complaint presented. Pain medication effective. No fall/injury. Up the the bathroom with assist and walker. Safety measure and afll precaution maintained. Continue current plan of care.
[2018-06-04] MEDS: BUDESONIDE 0.25 MG/2 ML NEBU IH SCH ×2 (07:38→19:01)
[2018-06-04] MEDS: ENSURE WITH FIBER 237 ML LIQUID (CHOCOLATE) PO SCH ×3 (08:00→17:24)
[2018-06-04] MEDS ORDERED: Medication Not On Formulary EA (Lactose-Reduced Food (Ensure Enlive) 237 ML) PO SCH (08:00)
[2018-06-04] MEDS ORDERED: POLYVINYL ALCOHOL OP SCH (09:00)
[2018-06-04] MEDS ORDERED: Medication Not On Formulary EA (Carvedilol Phosphate (Coreg Cr) 1 CAP) PO SCH (09:00)
[2018-06-04] MEDS ORDERED: POVIDONE OP SCH (09:00)
[2018-06-04] MEDS ORDERED: BUDESONIDE HHN SCH (09:00)
[2018-06-04 09:03] VITALS: BP 127/67
[2018-06-04] MEDS: CARBIDOPA/LEVODOPA 25-100MG TABLET PO SCH ×2 (09:14→17:18)
[2018-06-04] MEDS: ASPIRIN EC 81 MG TABLET.DR PO SCH (09:14)
[2018-06-04] MEDS: AMLODIPINE 5 MG TABLET PO SCH (09:18)
[2018-06-04] MEDS: CARVEDILOL 6.25 MG TABLET PO SCH ×2 (09:19→17:18)
[2018-06-04] MEDS: MIRALAX 17 GM POWD.PACK PO SCH (09:19)
[2018-06-04] MEDS: POLYVINYL ALCOHOL OPHT DROPS 15 ML BOTTLE EACHEYE SCH ×3 (12:51→17:32)
--- NOTE | 2018-06-04 17:27 | NUR ---
BARCODES ARTIFICIAL TEARS AND ENSURE ENLIVE NOT SCANNING BARCODE UNKNOWN. PHARMACY AND DIETARY NOTIFIED
[2018-06-04 19:00] VITALS: BP 134/59
--- NOTE | 2018-06-04 19:30 | NUR ---
REPORT OBTAINED REQUESTING PAIN AND SLEEING PILL. A/A/O TIMES 2.
[2018-06-04] MEDS: AMITRIPTYLINE HCL 10 MG TABLET PO SCH (20:07)
[2018-06-04] MEDS: DOCUSATE SODIUM 100 MG CAPSULE PO SCH (20:07)
[2018-06-04] MEDS: ATORVASTATIN 40 MG TABLET PO SCH (20:07)
[2018-06-05 04:00] VITALS: BP 128/64
[2018-06-05] MEDS: IPRATROPIUM BROMIDE 0.5 MG/2.5 ML NEBU NEB PRN ×2 (05:15→17:46)
[2018-06-05] MEDS: ALBUTEROL SULFATE 2.5 MG/ 0.5 ML NEBU NEB PRN ×2 (05:15→17:46)
--- NOTE | 2018-06-05 07:30 | NUR ---
WAS UNABLE TO SLEEP AFTER SLEEPER GIVEN. STATES THAT HE WAS NEVER GIVEN SLEEPER..
--- NOTE | 2018-06-05 07:40 | NUR ---
Received pt awake in bed. Noted 1:1 sitter for safety. No immediate s/s of SOB, pain, distress or discomfort at this time. Pt makes attempt to communicate. Pt is noted to use a tablet to express himself.
[2018-06-05] MEDS: ENSURE WITH FIBER 237 ML LIQUID (CHOCOLATE) PO SCH ×3 (08:24→17:49)
[2018-06-05] MEDS: CARBIDOPA/LEVODOPA 25-100MG TABLET PO SCH ×2 (08:25→16:20)
[2018-06-05] MEDS: ASPIRIN EC 81 MG TABLET.DR PO SCH (08:25)
[2018-06-05] MEDS: CARVEDILOL 6.25 MG TABLET PO SCH ×2 (08:26→17:44)
[2018-06-05] MEDS: POLYVINYL ALCOHOL OPHT DROPS 15 ML BOTTLE EACHEYE SCH ×3 (08:33→16:20)
[2018-06-05] MEDS: MIRALAX 17 GM POWD.PACK PO SCH (08:34)
[2018-06-05] MEDS: AMLODIPINE 5 MG TABLET PO SCH (09:48)
--- NOTE | 2018-06-05 10:52 | NUR ---
Pt has been complaint with his morning medications. Sitter by bedside.
[2018-06-05] MEDS: BUDESONIDE 0.25 MG/2 ML NEBU IH SCH ×2 (12:03→21:10)
[2018-06-05] MEDS: MIRALAX 17 GM POWD.PACK PO PRN (17:43)
--- NOTE | 2018-06-05 18:22 | NUR ---
Pt has been compliant with nursing care, medications and physical therapy. Sitter 1:1 for safety. No immediate s/s of SOB, pain, distress or discomfort
--- NOTE | 2018-06-05 19:20 | NUR ---
Up in the bathroom with FWW and standby assist by a sitter provided. Voiding good, no problem. Denies any pain/discomforts at this time. Continue care as planned.
[2018-06-05 20:00] VITALS: BP 107/64
[2018-06-05] MEDS: ATORVASTATIN 40 MG TABLET PO SCH (21:24)
[2018-06-05] MEDS: DOCUSATE SODIUM 100 MG CAPSULE PO SCH (21:24)
[2018-06-05] MEDS: AMITRIPTYLINE HCL 10 MG TABLET PO SCH (21:25)
[2018-06-05] MEDS: HYDROCODONE/APAP 5-325MG TABLET PO PRN (21:36)
--- NOTE | 2018-06-06 06:44 | NUR ---
Shift End Report: VSS. Slept good. Medicated once for pain with help. No further complaint presented. All needs attended and met. No significant event reported. Continue care as planned.
[2018-06-06 06:59] VITALS: BP 110/70
[2018-06-06] MEDS: BUDESONIDE 0.25 MG/2 ML NEBU IH SCH ×2 (07:03→19:04)
[2018-06-06 08:00] VITALS: BP 189/77
--- NOTE | 2018-06-06 08:30 | NUR ---
Pt. a/a/o no s/s of distress, denies any pain or SOB, eating breakfast .
[2018-06-06] MEDS: MIRALAX 17 GM POWD.PACK PO SCH (09:01)
[2018-06-06] MEDS: AMLODIPINE 5 MG TABLET PO SCH (09:02)
[2018-06-06] MEDS: ASPIRIN EC 81 MG TABLET.DR PO SCH (09:02)
[2018-06-06] MEDS: CARBIDOPA/LEVODOPA 25-100MG TABLET PO SCH ×2 (09:02→17:31)
[2018-06-06] MEDS: CARVEDILOL 6.25 MG TABLET PO SCH ×2 (09:02→17:31)
[2018-06-06] MEDS: POLYVINYL ALCOHOL OPHT DROPS 15 ML BOTTLE EACHEYE SCH ×3 (09:03→17:31)
[2018-06-06] MEDS: ENSURE WITH FIBER 237 ML LIQUID (CHOCOLATE) PO SCH ×3 (09:03→17:31)
--- NOTE | 2018-06-06 14:30 | NUR ---
Family at bedside,updated with pt.condition and plan of care.
[2018-06-06 16:26] VITALS: BP 141/58
--- NOTE | 2018-06-06 16:28 | NUR ---
Pt. sleeping, no s/s of distress or pain noted.
[2018-06-06 19:32] VITALS: BP 101/63
[2018-06-06] MEDS: ATORVASTATIN 40 MG TABLET PO SCH (20:31)
[2018-06-06] MEDS: AMITRIPTYLINE HCL 10 MG TABLET PO SCH (20:31)
[2018-06-06] MEDS: DOCUSATE SODIUM 100 MG CAPSULE PO SCH (20:31)
[2018-06-06] MEDS: HYDROCODONE/APAP 5-325MG TABLET PO PRN (20:46)
--- NOTE | 2018-06-06 22:00 | NUR ---
received to care, lying in bed, 1:1 sitter at bedside, for safety. compliant with tx plan. PRN norco was given at 2045, for right sided pain. as of 2199, he appears to be asleep. no distress noted. will continue to monitor closely.
[2018-06-07 04:51] VITALS: BP 123/67
[2018-06-07] MEDS: IPRATROPIUM BROMIDE 0.5 MG/2.5 ML NEBU NEB PRN (05:03)
[2018-06-07] MEDS: ALBUTEROL SULFATE 2.5 MG/ 0.5 ML NEBU NEB PRN (05:03)
--- NOTE | 2018-06-07 05:30 | NUR ---
slept well, last night. is now awake, watching tv. denies pain or discomfort. sitter remains at side. no distress noted.
[2018-06-07 07:00] VITALS: BP 115/61
[2018-06-07] MEDS: BUDESONIDE 0.25 MG/2 ML NEBU IH SCH ×2 (08:13→19:07)
[2018-06-07] MEDS: CARVEDILOL 6.25 MG TABLET PO SCH ×2 (08:43→17:34)
[2018-06-07] MEDS: CARBIDOPA/LEVODOPA 25-100MG TABLET PO SCH ×2 (08:44→17:33)
[2018-06-07] MEDS: ASPIRIN EC 81 MG TABLET.DR PO SCH (08:44)
[2018-06-07] MEDS: AMLODIPINE 5 MG TABLET PO SCH (08:44)
[2018-06-07] MEDS: MIRALAX 17 GM POWD.PACK PO SCH (08:45)
[2018-06-07] MEDS: POLYVINYL ALCOHOL OPHT DROPS 15 ML BOTTLE EACHEYE SCH ×3 (08:46→17:33)
[2018-06-07] MEDS: ENSURE WITH FIBER 237 ML LIQUID (CHOCOLATE) PO SCH ×3 (08:47→17:34)
[2018-06-07 16:00] VITALS: BP 128/61
--- NOTE | 2018-06-07 19:20 | NUR ---
Received pt lying in bed. AAOx4. In no acute distress. O2 sat at 96% on RA. Denies any pain or SOB at this time. 1:1 sitter on bedside. Safety measure initiated and call good within reach.
[2018-06-07 19:32] VITALS: BP 103/55
[2018-06-07] MEDS: ATORVASTATIN 40 MG TABLET PO SCH (20:52)
[2018-06-07] MEDS: AMITRIPTYLINE HCL 10 MG TABLET PO SCH (20:52)
[2018-06-07] MEDS: DOCUSATE SODIUM 100 MG CAPSULE PO SCH (20:52)
[2018-06-07] MEDS: HYDROCODONE/APAP 5-325MG TABLET PO PRN (22:45)
[2018-06-08 05:13] VITALS: BP 114/60
--- NOTE | 2018-06-08 06:24 | NUR ---
AAOx4. In no acute distress. O2 at 2lpm via NC in place. O2 sat at 94%. Denies any pain or SOB. 1:1 sitter on bedside. Safety measure maintained and call good within reach.
[2018-06-08 07:00] VITALS: BP 126/52
--- NOTE | 2018-06-08 08:30 | NUR ---
Received patient awake, alert x3 with garbled speech. Not in apparent pain. Up with physical therapy, tolerating well. 1:1 sitter at bedside.
[2018-06-08] MEDS: MIRALAX 17 GM POWD.PACK PO SCH ×2 (09:00→09:33)
[2018-06-08] MEDS: CARVEDILOL 6.25 MG TABLET PO SCH ×2 (09:32→17:17)
[2018-06-08] MEDS: AMLODIPINE 5 MG TABLET PO SCH (09:32)
[2018-06-08] MEDS: ENSURE WITH FIBER 237 ML LIQUID (CHOCOLATE) PO SCH ×3 (09:33→18:03)
[2018-06-08] MEDS: CARBIDOPA/LEVODOPA 25-100MG TABLET PO SCH ×2 (09:33→16:44)
[2018-06-08] MEDS: POLYVINYL ALCOHOL OPHT DROPS 15 ML BOTTLE EACHEYE SCH ×3 (09:33→16:44)
[2018-06-08] MEDS: ASPIRIN EC 81 MG TABLET.DR PO SCH (09:33)
--- NOTE | 2018-06-08 10:14 | NUR ---
Patient refused Miralax, had bowel movements 2 times last night according to sitter and once before the shift. Informed Dr. Doll and obtained order for Miralax to be given PRN.
[2018-06-08] MEDS: BUDESONIDE 0.25 MG/2 ML NEBU IH SCH ×2 (10:17→20:29)
--- NOTE | 2018-06-08 13:45 | NUR ---
INTERDISCIPLINARY TEAM CONFERENCE
[2018-06-08] MEDS: IPRATROPIUM BROMIDE 0.5 MG/2.5 ML NEBU NEB PRN (14:34)
[2018-06-08] MEDS: ALBUTEROL SULFATE 2.5 MG/ 0.5 ML NEBU NEB PRN (14:34)
[2018-06-08 16:09] VITALS: BP 124/62
[2018-06-08] MEDS: HYDROCODONE/APAP 5-325MG TABLET PO PRN ×2 (16:44→23:38)
--- NOTE | 2018-06-08 19:20 | NUR ---
Awake during initial rounds. Pleasant and cooperative with care. Sitter at bedside. Denies any pain/discomforts at this time. Continue care as planned.
[2018-06-08 19:24] VITALS: BP 122/55
[2018-06-08] MEDS: ATORVASTATIN 40 MG TABLET PO SCH (21:03)
[2018-06-08] MEDS: AMITRIPTYLINE HCL 10 MG TABLET PO SCH (21:03)
[2018-06-08] MEDS: DOCUSATE SODIUM 100 MG CAPSULE PO SCH (21:04)
--- NOTE | 2018-06-09 06:05 | NUR ---
Shift End Report: Slept good. Sitter at bedside for safety. NO fall/injury. Medicated once for pain with relief. No further complaint presented. All needs attended and met. Continue care as planned.
[2018-06-09 06:55] VITALS: BP 132/87
[2018-06-09] MEDS: IPRATROPIUM BROMIDE 0.5 MG/2.5 ML NEBU NEB PRN ×4 (07:17→20:07)
[2018-06-09] MEDS: ALBUTEROL SULFATE 2.5 MG/ 0.5 ML NEBU NEB PRN ×4 (07:17→20:07)
[2018-06-09] MEDS: BUDESONIDE 0.25 MG/2 ML NEBU IH SCH ×2 (07:17→20:06)
[2018-06-09 08:00] VITALS: BP 112/62
--- NOTE | 2018-06-09 08:30 | NUR ---
Received patient with 1:1 sitter at bedside. Denies any pain. Awake, alert x4. Able to make needs known. With at bedside.
[2018-06-09] MEDS: ASPIRIN EC 81 MG TABLET.DR PO SCH (08:51)
[2018-06-09] MEDS: CARBIDOPA/LEVODOPA 25-100MG TABLET PO SCH ×2 (08:51→18:10)
[2018-06-09 08:52] VITALS: BP 112/62
[2018-06-09] MEDS: CARVEDILOL 6.25 MG TABLET PO SCH ×2 (08:52→18:10)
[2018-06-09] MEDS: ENSURE WITH FIBER 237 ML LIQUID (CHOCOLATE) PO SCH ×3 (08:53→18:11)
[2018-06-09] MEDS: POLYVINYL ALCOHOL OPHT DROPS 15 ML BOTTLE EACHEYE SCH ×3 (08:53→18:11)
[2018-06-09] MEDS: AMLODIPINE 5 MG TABLET PO SCH (08:53)
[2018-06-09 16:00] VITALS: BP 128/53
--- NOTE | 2018-06-09 16:08 | NUR ---
Seen on patient rounding. Resting comfortably in bed. Sitter at bedside. With O2 at 2lpm, sating well.
[2018-06-09 19:31] VITALS: BP 111/55
[2018-06-09] MEDS: ATORVASTATIN 40 MG TABLET PO SCH (20:05)
[2018-06-09] MEDS: DOCUSATE SODIUM 100 MG CAPSULE PO SCH (20:05)
--- NOTE | 2018-06-09 20:54 | NUR ---
Received pt resting in bed. AAO x4. On 2L O2, no acute distress noted. No c/o pain or discomfort, no facial cues. Pt received breathing treatment. 1:1 sitter at bedside. Safety measures maintained. Call light and personal belongings within reach. Will continue to monitor.
[2018-06-09] MEDS: AMITRIPTYLINE HCL 10 MG TABLET PO SCH (22:56)
[2018-06-10 05:00] VITALS: BP 121/58
[2018-06-10] MEDS: ALBUTEROL SULFATE 2.5 MG/ 0.5 ML NEBU NEB PRN ×3 (05:23→20:40)
[2018-06-10] MEDS: IPRATROPIUM BROMIDE 0.5 MG/2.5 ML NEBU NEB PRN ×3 (05:23→20:40)
[2018-06-10] MEDS: ENSURE WITH FIBER 237 ML LIQUID (CHOCOLATE) PO SCH ×3 (08:00→17:29)
[2018-06-10] MEDS: CARVEDILOL 6.25 MG TABLET PO SCH ×2 (08:00→17:33)
--- NOTE | 2018-06-10 08:06 | NUR ---
received report from night auditor. patient stable upon initial assessment. patient asleep in bed with 2L o2 in nares. no s/s distress. sitter at bedside for safety. will continue to monitor.
[2018-06-10] MEDS: BUDESONIDE 0.25 MG/2 ML NEBU IH SCH ×2 (08:17→20:40)
[2018-06-10] MEDS: AMLODIPINE 5 MG TABLET PO SCH (09:00)
[2018-06-10] MEDS: POLYVINYL ALCOHOL OPHT DROPS 15 ML BOTTLE EACHEYE SCH ×3 (09:57→17:37)
[2018-06-10] MEDS: CARBIDOPA/LEVODOPA 25-100MG TABLET PO SCH ×2 (09:57→17:37)
[2018-06-10] MEDS: ASPIRIN EC 81 MG TABLET.DR PO SCH (09:57)
[2018-06-10 15:17] VITALS: BP 125/56
[2018-06-10] MEDS: HYDROCODONE/APAP 5-325MG TABLET PO PRN (18:39)
[2018-06-10 19:30] VITALS: BP 121/57
[2018-06-10] MEDS: ATORVASTATIN 40 MG TABLET PO SCH (20:24)
[2018-06-10] MEDS: DOCUSATE SODIUM 100 MG CAPSULE PO SCH (20:24)
--- NOTE | 2018-06-10 22:38 | NUR ---
Received pt sitting on the chair at bedside and watching TV. Sitter at bedside. Room changed from 120A to 106. No acute distress noted. No c/o pain or discomfort, no facial cues. Meds given as ordered, on thickened liquids, takes pills will apple sauce one at a time. Aspiration precaution observed. On 2L O2 via NC, tolerating well. Safety measures maintained. Call light and personal belongings within reach. Will continue to monitor.
[2018-06-10] MEDS: AMITRIPTYLINE HCL 10 MG TABLET PO SCH (23:03)
[2018-06-11] MEDS: ALBUTEROL SULFATE 2.5 MG/ 0.5 ML NEBU NEB PRN ×5 (01:29→19:18)
[2018-06-11] MEDS: IPRATROPIUM BROMIDE 0.5 MG/2.5 ML NEBU NEB PRN ×5 (01:29→19:18)
[2018-06-11 04:30] VITALS: BP 125/58
[2018-06-11] MEDS: BUDESONIDE 0.25 MG/2 ML NEBU IH SCH ×2 (07:06→19:18)
[2018-06-11] MEDS: AMLODIPINE 5 MG TABLET PO SCH (08:27)
[2018-06-11] MEDS: CARVEDILOL 6.25 MG TABLET PO SCH ×2 (08:27→16:32)
[2018-06-11] MEDS: CARBIDOPA/LEVODOPA 25-100MG TABLET PO SCH ×2 (08:28→16:32)
[2018-06-11] MEDS: ASPIRIN EC 81 MG TABLET.DR PO SCH (08:28)
[2018-06-11] MEDS: ENSURE WITH FIBER 237 ML LIQUID (CHOCOLATE) PO SCH ×3 (08:28→17:26)
[2018-06-11] MEDS: POLYVINYL ALCOHOL OPHT DROPS 15 ML BOTTLE EACHEYE SCH ×3 (08:28→16:32)
[2018-06-11 09:00] VITALS: BP 125/51
--- NOTE | 2018-06-11 10:43 | NUR ---
Received patient lying in bed, awake and orietedx4. not in distress. Continue on 2 LPM oxygen via nasal cannula. OXY SAT: 98%. swallow pills with apple sauce. Continue breathing treatment every 4 hours PRN. no complaint voiced. will continue monitor
[2018-06-11 15:13] VITALS: BP 117/65
[2018-06-11 15:41] VITALS: BP 117/65
--- NOTE | 2018-06-11 19:00 | NUR ---
Received patient awake, sitter at bedside. Denies any pain/discomforts at this time. Safety measures and fall precaution maintained. Continue care as planned.
[2018-06-11] MEDS: DOCUSATE SODIUM 100 MG CAPSULE PO SCH (21:13)
[2018-06-11] MEDS: ATORVASTATIN 40 MG TABLET PO SCH (21:13)
[2018-06-11 21:15] VITALS: BP 107/52
[2018-06-11] MEDS: HYDROCODONE/APAP 5-325MG TABLET PO PRN (22:46)
[2018-06-11] MEDS: AMITRIPTYLINE HCL 10 MG TABLET PO SCH (22:47)
[2018-06-12 05:39] VITALS: BP 135/58
--- NOTE | 2018-06-12 06:29 | NUR ---
Shift End Report: VS stable. Medicated once for pain with relief. No further complaint presented. Slept in between care. No fall/injury reported. Sitter remain at bedside. Continue current rehab plan.
[2018-06-12] MEDS: BUDESONIDE 0.25 MG/2 ML NEBU IH SCH ×2 (07:10→18:57)
[2018-06-12] MEDS: ALBUTEROL SULFATE 2.5 MG/ 0.5 ML NEBU NEB PRN (07:10)
--- NOTE | 2018-06-12 07:39 | NUR ---
Patient noted sitting up in chair, 1:1 sitter noted at bed side, no complaints of pain at this time, no signs of distress noted, call light in reach, bed locked and in lowest position, all needs met at this time
[2018-06-12] MEDS: CARBIDOPA/LEVODOPA 25-100MG TABLET PO SCH ×2 (08:18→17:31)
[2018-06-12] MEDS: ASPIRIN EC 81 MG TABLET.DR PO SCH (08:18)
[2018-06-12] MEDS: AMLODIPINE 5 MG TABLET PO SCH (08:19)
[2018-06-12] MEDS: CARVEDILOL 6.25 MG TABLET PO SCH ×2 (08:19→17:32)
[2018-06-12] MEDS: ENSURE WITH FIBER 237 ML LIQUID (CHOCOLATE) PO SCH ×3 (08:20→18:32)
[2018-06-12] MEDS: POLYVINYL ALCOHOL OPHT DROPS 15 ML BOTTLE EACHEYE SCH ×3 (08:20→17:33)
[2018-06-12 08:30] VITALS: BP 115/59
[2018-06-12 16:00] VITALS: BP 127/59
[2018-06-12] MEDS: HYDROCODONE/APAP 5-325MG TABLET PO PRN (18:32)
--- NOTE | 2018-06-12 18:54 | NUR ---
PRN [place] given for shoulder pain of 4/10, no signs of distress this shift
[2018-06-12 19:15] VITALS: BP 101/65
[2018-06-12] MEDS: ATORVASTATIN 40 MG TABLET PO SCH (20:36)
[2018-06-12] MEDS: DOCUSATE SODIUM 100 MG CAPSULE PO SCH (20:36)
[2018-06-12] MEDS: AMITRIPTYLINE HCL 10 MG TABLET PO SCH (22:17)
--- NOTE | 2018-06-13 04:04 | NUR ---
aaox3-4 on a 1:1 sitter. fall precautions maintained. no signs of agitation or restlessness noted this shift. compliant with meds. tolertaed po meds well. no acute distress noted. will monitor patient. continent of bowel and bladder.
[2018-06-13 05:07] VITALS: BP 130/61
[2018-06-13] MEDS: ALBUTEROL SULFATE 2.5 MG/ 0.5 ML NEBU NEB PRN ×3 (07:06→21:40)
[2018-06-13] MEDS: IPRATROPIUM BROMIDE 0.5 MG/2.5 ML NEBU NEB PRN ×3 (07:06→21:40)
[2018-06-13] MEDS: BUDESONIDE 0.25 MG/2 ML NEBU IH SCH ×2 (07:06→20:39)
--- NOTE | 2018-06-13 07:35 | NUR ---
Patient noted sitting up watching tv, no complaints of pain, no signs of distress noted, call light in reach, bed locked and in lowest position, 1 to 1 sitter at noted in patient's room, all needs met at this time
[2018-06-13 08:20] VITALS: BP 126/65
[2018-06-13] MEDS: ASPIRIN EC 81 MG TABLET.DR PO SCH (08:55)
[2018-06-13] MEDS: CARBIDOPA/LEVODOPA 25-100MG TABLET PO SCH ×2 (08:55→17:30)
[2018-06-13] MEDS: AMLODIPINE 5 MG TABLET PO SCH (08:56)
[2018-06-13] MEDS: CARVEDILOL 6.25 MG TABLET PO SCH ×2 (08:57→17:30)
[2018-06-13] MEDS: ENSURE WITH FIBER 237 ML LIQUID (CHOCOLATE) PO SCH ×3 (08:57→17:34)
[2018-06-13] MEDS: POLYVINYL ALCOHOL OPHT DROPS 15 ML BOTTLE EACHEYE SCH ×3 (08:57→17:30)
[2018-06-13] MEDS: HYDROCODONE/APAP 5-325MG TABLET PO PRN ×2 (09:04→17:32)
[2018-06-13 16:07] VITALS: BP 114/57
[2018-06-13 19:18] VITALS: BP 121/69
[2018-06-13] MEDS: DOCUSATE SODIUM 100 MG CAPSULE PO SCH (20:22)
[2018-06-13] MEDS: ATORVASTATIN 40 MG TABLET PO SCH (20:22)
[2018-06-13] MEDS: AMITRIPTYLINE HCL 10 MG TABLET PO SCH (23:49)
[2018-06-14 05:22] VITALS: BP 136/74
[2018-06-14] MEDS: HYDROCODONE/APAP 5-325MG TABLET PO PRN (06:01)
[2018-06-14 07:13] LABS: BASOPHILS # (AUTO) 0.1 K/uL (0.0-8.0); BASOPHILS % (AUTO) 0.9 % (0.0-2.0); EOSINOPHILS # (AUTO) 0.2 K/uL (0.0-0.7); EOSINOPHILS % (AUTO) 3.2 % (0.0-7.0); HEMATOCRIT 39.1 % (36.7-47.1); HEMOGLOBIN 12.9 g/dL (12.5-16.3); LYMPHOCYTES # (AUTO) 2.2 K/uL (20.0-40.0); LYMPHOCYTES % (AUTO) 38.4 % (20.5-51.5); MEAN CORPUSCULAR HEMOGLOBIN 31.7 uug (23.8-33.4); MEAN CORPUSCULAR HGB CONC 33 g/dL (32.5-36.3); MEAN CORPUSCULAR VOLUME 96.1 fL (73.0-96.2); MONOCYTES # (AUTO) 0.4 K/uL (2.0-10.0); MONOCYTES % (AUTO) 6.9 % (0.0-11.0); NEUTROPHILS # (AUTO) 2.9 K/uL (1.8-8.9); NEUTROPHILS % (AUTO) 50.6 % (38.5-71.5); PLATELET COUNT (AUTO) 213 K/uL (152-348); RED BLOOD CELL COUNT(AUTO) 4.07 MIL/uL (4.06-5.63); WHITE BLOOD COUNT (AUTO) 5.7 K/uL (3.6-10.2)
[2018-06-14 07:19] LABS: CARBON DIOXIDE 35 mmol/L (21-32); CHLORIDE 102 mmol/L (98-107); GLUCOSE 93 mg/dL (74-106); POTASSIUM 4.1 mmol/L (3.5-5.1); UREA NITROGEN, BLOOD 36 mg/dL (7-18)
[2018-06-14] MEDS: OXYCODONE/APAP 5-325 MG TABLET PO PRN ×2 (07:23→17:05)
--- NOTE | 2018-06-14 07:42 | NUR ---
Patient noted sitting up in bed, 1 to 1 sitter noted at bedside, call light in reach, bed locked an din lowest position, PRN Percocet given by previous nurse for right shoulder pain, no signs of distress noted, x [address], all needs met at this time
[2018-06-14] MEDS: IPRATROPIUM BROMIDE 0.5 MG/2.5 ML NEBU NEB PRN ×4 (07:44→19:20)
[2018-06-14] MEDS: BUDESONIDE 0.25 MG/2 ML NEBU IH SCH ×2 (07:44→19:19)
[2018-06-14] MEDS: ALBUTEROL SULFATE 2.5 MG/ 0.5 ML NEBU NEB PRN ×4 (07:44→19:20)
[2018-06-14 08:00] VITALS: BP 153/57
[2018-06-14] MEDS: CARVEDILOL 6.25 MG TABLET PO SCH ×2 (08:00→17:06)
[2018-06-14] MEDS: ASPIRIN EC 81 MG TABLET.DR PO SCH (08:37)
[2018-06-14] MEDS: AMLODIPINE 5 MG TABLET PO SCH (08:38)
[2018-06-14] MEDS: CARBIDOPA/LEVODOPA 25-100MG TABLET PO SCH ×2 (08:38→17:05)
[2018-06-14] MEDS: ENSURE WITH FIBER 237 ML LIQUID (CHOCOLATE) PO SCH ×3 (08:39→17:06)
[2018-06-14] MEDS: POLYVINYL ALCOHOL OPHT DROPS 15 ML BOTTLE EACHEYE SCH ×3 (08:39→17:03)
[2018-06-14 16:00] VITALS: BP 108/70
[2018-06-14 19:11] VITALS: BP 118/88
[2018-06-14] MEDS: ATORVASTATIN 40 MG TABLET PO SCH (20:22)
[2018-06-14] MEDS: DOCUSATE SODIUM 100 MG CAPSULE PO SCH (20:23)
--- NOTE | 2018-06-14 20:48 | NUR ---
Upon arrival , pt sitting in wheelchair . Pt is A & O x 3 -4 , no signs of distress . no c/o pain . Pt is on a 1 : 1 sitter . Pt has call light nearby pt .
[2018-06-14] MEDS: AMITRIPTYLINE HCL 10 MG TABLET PO SCH (23:59)
--- NOTE | 2018-06-15 06:04 | NUR ---
Pt slept well during the shift . Bed in low position , wheels locked , bed alarm on , side rails up , and call light nearby pt . Pt had 1 BM during shift . Pt received pain medication and sleep medication . no signs of distress.
[2018-06-15 06:09] VITALS: BP 148/69
[2018-06-15] MEDS: OXYCODONE/APAP 5-325 MG TABLET PO PRN (06:12)
[2018-06-15] MEDS: ALBUTEROL SULFATE 2.5 MG/ 0.5 ML NEBU NEB PRN ×4 (07:03→19:14)
[2018-06-15] MEDS: BUDESONIDE 0.25 MG/2 ML NEBU IH SCH ×2 (07:03→19:14)
[2018-06-15] MEDS: IPRATROPIUM BROMIDE 0.5 MG/2.5 ML NEBU NEB PRN ×4 (07:03→19:14)
[2018-06-15 08:00] VITALS: BP 125/57
--- NOTE | 2018-06-15 08:00 | NUR ---
Patient sitting up on the wheelchair having breakfast. Patient is alert, verbally responsive, not in any form of acute distress. He is on O2 at 2 LPM via NC. He denies any pain or discomfort at this time. Maintained on fall precaution. 1:1 Sitter at bedside
[2018-06-15] MEDS: ASPIRIN EC 81 MG TABLET.DR PO SCH (08:26)
[2018-06-15] MEDS: POLYVINYL ALCOHOL OPHT DROPS 15 ML BOTTLE EACHEYE SCH ×3 (08:26→17:05)
[2018-06-15] MEDS: ENSURE WITH FIBER 237 ML LIQUID (CHOCOLATE) PO SCH ×3 (08:27→17:06)
[2018-06-15] MEDS: CARBIDOPA/LEVODOPA 25-100MG TABLET PO SCH ×2 (08:27→17:04)
[2018-06-15] MEDS: AMLODIPINE 5 MG TABLET PO SCH (09:00)
[2018-06-15] MEDS: CARVEDILOL 6.25 MG TABLET PO SCH ×2 (09:00→17:05)
--- NOTE | 2018-06-15 13:00 | NUR ---
Patient ambulating with walker with occupational therapist, not in distress, no complain of any pain or discomfort.
--- NOTE | 2018-06-15 13:14 | NUR ---
INTERDISCIPLINARY TEAM CONFERENCE
[2018-06-15 16:00] VITALS: BP 126/54
[2018-06-15] MEDS: HYDROCODONE/APAP 5-325MG TABLET PO PRN (17:23)
[2018-06-15 19:27] VITALS: BP 108/53
[2018-06-15] MEDS: ATORVASTATIN 40 MG TABLET PO SCH (20:38)
[2018-06-15] MEDS: DOCUSATE SODIUM 100 MG CAPSULE PO SCH (20:39)
--- NOTE | 2018-06-15 20:50 | NUR ---
Received pt resting in bed and watching TV. AAO x3-4. On 2L O2 via NC. No acute distress noted. No c/o pain or discomfort. Meds given as ordered. Took pill one at a time with apple sauce. 1:1 sitter at bedside. Safety measures maintained. Bed alarm on. Call light and personal belongings within reach. Will continue to monitor.
[2018-06-15] MEDS: AMITRIPTYLINE HCL 10 MG TABLET PO SCH (23:12)
[2018-06-16] MEDS: ALBUTEROL SULFATE 2.5 MG/ 0.5 ML NEBU NEB PRN ×5 (02:49→20:00)
[2018-06-16] MEDS: IPRATROPIUM BROMIDE 0.5 MG/2.5 ML NEBU NEB PRN ×5 (02:49→20:00)
[2018-06-16 04:30] VITALS: BP 110/55
[2018-06-16] MEDS: OXYCODONE/APAP 5-325 MG TABLET PO PRN ×2 (06:12→20:26)
[2018-06-16] MEDS: BUDESONIDE 0.25 MG/2 ML NEBU IH SCH ×2 (07:15→20:00)
[2018-06-16 07:52] VITALS: BP 118/60
[2018-06-16] MEDS: POLYVINYL ALCOHOL OPHT DROPS 15 ML BOTTLE EACHEYE SCH ×3 (08:59→17:55)
[2018-06-16] MEDS: ASPIRIN EC 81 MG TABLET.DR PO SCH (08:59)
[2018-06-16] MEDS: CARBIDOPA/LEVODOPA 25-100MG TABLET PO SCH ×2 (08:59→17:55)
[2018-06-16] MEDS: ENSURE WITH FIBER 237 ML LIQUID (CHOCOLATE) PO SCH ×3 (08:59→18:00)
[2018-06-16] MEDS: AMLODIPINE 5 MG TABLET PO SCH (09:00)
[2018-06-16] MEDS: CARVEDILOL 6.25 MG TABLET PO SCH ×2 (09:00→18:00)
[2018-06-16] MEDS: MIRALAX 17 GM POWD.PACK PO PRN (11:26)
[2018-06-16 16:00] VITALS: BP 112/48
[2018-06-16] MEDS: HYDROCODONE/APAP 5-325MG TABLET PO PRN (17:59)
--- NOTE | 2018-06-16 19:30 | NUR ---
PT ALERT IN CHAIR. NO DISTRESS NOTED. O2 SAT WNL ON 2LNC. SHOULDER PAIN UNRELIEVED BY NORCO, WILL GIVE PAIN MEDICATION ORDERED. CLEAN AND DRY. 1:1 SITTER AT BEDSIDE. SAFETY MAINTAINED. WILL CONTINUE TO MONITOR.
[2018-06-16 19:32] VITALS: BP 109/51
[2018-06-16] MEDS: ATORVASTATIN 40 MG TABLET PO SCH (20:25)
[2018-06-16] MEDS: DOCUSATE SODIUM 100 MG CAPSULE PO SCH (20:25)
[2018-06-16] MEDS: AMITRIPTYLINE HCL 10 MG TABLET PO SCH (23:03)
[2018-06-17] MEDS: IPRATROPIUM BROMIDE 0.5 MG/2.5 ML NEBU NEB PRN ×4 (02:51→14:56)
[2018-06-17] MEDS: ALBUTEROL SULFATE 2.5 MG/ 0.5 ML NEBU NEB PRN ×4 (02:51→14:56)
[2018-06-17] MEDS: HYDROCODONE/APAP 5-325MG TABLET PO PRN ×2 (02:58→09:05)
[2018-06-17 04:30] VITALS: BP 113/67
--- NOTE | 2018-06-17 06:36 | NUR ---
PT ALERT AND ORIENTED IN BED. NO DISTRESS NOTED. COMPLIANT WITH NURSING CARE. 1:1 SITTER AT BEDSIDE FOR SAFETY. CLEAN AND DRY. SAFETY MAINTAINED. CALL LIGHT WITHIN REACH. BED ALARM ON.
[2018-06-17] MEDS: OXYCODONE/APAP 5-325 MG TABLET PO PRN ×2 (07:03→14:52)
[2018-06-17] MEDS: BUDESONIDE 0.25 MG/2 ML NEBU IH SCH ×2 (07:05→18:56)
[2018-06-17 08:00] VITALS: BP 102/48
[2018-06-17] MEDS: CARVEDILOL 6.25 MG TABLET PO SCH ×2 (08:00→16:46)
[2018-06-17] MEDS: AMLODIPINE 5 MG TABLET PO SCH (09:00)
[2018-06-17] MEDS: ENSURE WITH FIBER 237 ML LIQUID (CHOCOLATE) PO SCH ×3 (09:01→16:46)
[2018-06-17] MEDS: CARBIDOPA/LEVODOPA 25-100MG TABLET PO SCH ×2 (09:04→16:46)
[2018-06-17] MEDS: ASPIRIN EC 81 MG TABLET.DR PO SCH (09:04)
[2018-06-17] MEDS: POLYVINYL ALCOHOL OPHT DROPS 15 ML BOTTLE EACHEYE SCH ×3 (09:04→16:46)
--- NOTE | 2018-06-17 10:58 | NUR ---
Patient noted sitting up in wheelchair, 1 to 1 sitter noted at bedside, complaints of right shoulder pain 4/10, norco 5-325 mg given, no signs of distress noted, call light in reach, bed locked and in lowest position, took all medications in applesauce
[2018-06-17 12:16] VITALS: BP 102/48
[2018-06-17 16:00] VITALS: BP 127/55
[2018-06-17] MEDS: MIRALAX 17 GM POWD.PACK PO PRN (16:45)
[2018-06-17 19:17] VITALS: BP 117/62
--- NOTE | 2018-06-17 19:20 | NUR ---
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
--- NOTE | 2018-06-17 19:21 | NUR ---
PRN MIRALAX AND MILK OF MAGNESIA GIVEN THIS SHIFT FOR CONSTIPATION
[2018-06-17 20:00] VITALS: BP 117/62
--- NOTE | 2018-06-17 20:20 | NUR ---
Patient received at bed, AAO X3. No acute distress or SOB was noted. On O2 via nasal canula. No complain of pain. All safety measures maintained. Bed is in low position and bed alarm and brake are on, side rails up x2. Call light and personal belonging within reach. Continue to monitor.
[2018-06-17] MEDS: DOCUSATE SODIUM 100 MG CAPSULE PO SCH (21:04)
[2018-06-17] MEDS: ATORVASTATIN 40 MG TABLET PO SCH (21:04)
--- NOTE | 2018-06-17 22:00 | NUR ---
patient has a skin tear in the right groin area. picture was taken and placed in the chart. applied Z guard on the affected area. continue to monitor.
[2018-06-17] MEDS: AMITRIPTYLINE HCL 10 MG TABLET PO SCH (22:39)
[2018-06-18 05:26] VITALS: BP 133/68
[2018-06-18] MEDS: HYDROCODONE/APAP 5-325MG TABLET PO PRN (05:32)
[2018-06-18 06:52] VITALS: BP 133/68
[2018-06-18] MEDS: ALBUTEROL SULFATE 2.5 MG/ 0.5 ML NEBU NEB PRN ×2 (07:00→12:45)
[2018-06-18] MEDS: IPRATROPIUM BROMIDE 0.5 MG/2.5 ML NEBU NEB PRN ×2 (07:00→12:45)
[2018-06-18] MEDS: BUDESONIDE 0.25 MG/2 ML NEBU IH SCH (07:00)
[2018-06-18 07:27] LABS: BASOPHILS % (AUTO) 0.5 % (0.0-2.0); EOSINOPHILS # (AUTO) 0.1 K/uL (0.0-0.7); EOSINOPHILS % (AUTO) 2.4 % (0.0-7.0); HEMATOCRIT 37.2 % (36.7-47.1); HEMOGLOBIN 12.4 g/dL (12.5-16.3); LYMPHOCYTES # (AUTO) 2.1 K/uL (20.0-40.0); LYMPHOCYTES % (AUTO) 32.8 % (20.5-51.5); MEAN CORPUSCULAR HGB CONC 33 g/dL (32.5-36.3); MEAN CORPUSCULAR VOLUME 95.9 fL (73.0-96.2); MONOCYTES # (AUTO) 0.5 K/uL (2.0-10.0); MONOCYTES % (AUTO) 7.4 % (0.0-11.0); NEUTROPHILS # (AUTO) 3.6 K/uL (1.8-8.9); NEUTROPHILS % (AUTO) 56.9 % (38.5-71.5); PLATELET COUNT (AUTO) 196 K/uL (152-348); RED BLOOD CELL COUNT(AUTO) 3.88 MIL/uL (4.06-5.63); WHITE BLOOD COUNT (AUTO) 6.3 K/uL (3.6-10.2)
[2018-06-18 07:35] LABS: CARBON DIOXIDE 37 mmol/L (21-32); CHLORIDE 104 mmol/L (98-107); CREATININE 1.1 mg/dL (0.6-1.3); GLUCOSE 105 mg/dL (74-106); POTASSIUM 4.6 mmol/L (3.5-5.1); UREA NITROGEN, BLOOD 30 mg/dL (7-18)
[2018-06-18 08:00] VITALS: BP 120/59
[2018-06-18] MEDS: ENSURE WITH FIBER 237 ML LIQUID (CHOCOLATE) PO SCH ×2 (08:14→12:19)
[2018-06-18] MEDS: ASPIRIN EC 81 MG TABLET.DR PO SCH (08:14)
[2018-06-18] MEDS: CARBIDOPA/LEVODOPA 25-100MG TABLET PO SCH (08:14)
[2018-06-18] MEDS: POLYVINYL ALCOHOL OPHT DROPS 15 ML BOTTLE EACHEYE SCH ×2 (08:15→12:19)
[2018-06-18] MEDS: CARVEDILOL 6.25 MG TABLET PO SCH (08:15)
[2018-06-18 09:00] VITALS: BP 120/59
[2018-06-18] MEDS: AMLODIPINE 5 MG TABLET PO SCH (09:00)
--- NOTE | 2018-06-18 13:15 | NUR ---
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 PT O2 SAT 93-96 ON RA AFTER AMBULATION W PT . DENIES ANY SOB. ASYMPTOMATIC.
--- NOTE | 2018-06-18 14:00 | NUR ---
SBAR report received this morning, board updated. Pt assessed, no acute distress or SOB noted. Pt compliant with routine morning medication administration and therapies as ordered. 1:1 sitter present at bedside. VS WNL, one of two BP meds held. Pt able to make needs known. Bed in locked and lowest position with side rails up x2. Pt assisted to bathroom for BMx1. Call light within reach. All comfort and safety needs met at this time. Discharge order received, will complete paperwork. Pt evaluated to have O2 sat on RA between 93-96%, made aware. Clarification verified original O2 order as PRN, will continue to monitor.
--- NOTE | 2018-06-18 15:00 | NUR ---
Discharge paperwork completed, discussed, and signed by in presence of Pt, copies placed in chart. Belongings accounted for and signed. No home meds to return. Skin intact except for slight skin tear to right groin, photo taken last night and placed in chart. Rx reviewed with Pt & , faxed to pharmacy. All discharge concerns addressed. Wheelchair delivered and placed in car. Pt ID band removed. Pt safely escorted out to private vehicle with driving. Will remove Pt from system shortly.
== END 2018-06-18 14:55 | disposition home health service (06) | DRG 56 ==
PROVIDERS: ADMIT Physical Medicine & Rehabilitation Pain Medicine; ATTEND Physical Medicine & Rehabilitation Pain Medicine
DX: I69.898 Other sequelae of other cerebrovascular disease (principal); G93.41 Metabolic encephalopathy; G23.1 Progressive supranuclear ophthalmoplegia [Steele-Richardson-Olszewski]; R53.1 Weakness; R13.12 Dysphagia, oropharyngeal phase; D63.8 Anemia in other chronic diseases classified elsewhere; E78.5 Hyperlipidemia, unspecified; G20 Parkinson's disease; R47.1 Dysarthria and anarthria; I69.30 Unspecified sequelae of cerebral infarction; I10 Essential (primary) hypertension; I25.10 Atherosclerotic heart disease of native coronary artery without angina pectoris; I25.2 Old myocardial infarction; I67.2 Cerebral atherosclerosis; J44.9 Chronic obstructive pulmonary disease, unspecified; K21.9 Gastro-esophageal reflux disease without esophagitis; M19.90 Unspecified osteoarthritis, unspecified site; N40.0 Benign prostatic hyperplasia without lower urinary tract symptoms; Z90.79 Acquired absence of other genital organ(s); Z95.5 Presence of coronary angioplasty implant and graft; R10.31 Right lower quadrant pain; Z91.81 History of falling
CPT/HCPCS: 36415; 85025; 92523; 92526; 92610; 94640; 94664; 97110; 97112; 97116; 97530; 97535; A4663; J3590

== ENCOUNTER 2018-09-03 16:48 | Inpatient (IN) | payer MEDICARE, OTHER ==
[~2018-09-03] VITALS: Ht 180.3 cm; Wt 88.9 kg
[~2018-09-03 16:48] MED LIST changes: +BUDE0.253 IH; +CARV6.25 PO; +LACT-246 PO; +MAGN400O6 PO; +ONDA4TAB5 IV
[2018-09-03] MEDS ORDERED: CEPH-570 PO (17:10)
[2018-09-03] MEDS ORDERED: AMIT10TA32 PO (17:10)
[2018-09-03] MEDS ORDERED: P EP PO (17:11)
[2018-09-03 17:37] LABS: BASOPHILS % (AUTO) 0.8 % (0.0-2.0); EOSINOPHILS # (AUTO) 0.2 K/uL (0.0-0.7); EOSINOPHILS % (AUTO) 2.9 % (0.0-7.0); HEMATOCRIT 36.5 % (36.7-47.1); HEMOGLOBIN 12.2 g/dL (12.5-16.3); LYMPHOCYTES # (AUTO) 1.7 K/uL (20.0-40.0); MEAN CORPUSCULAR HEMOGLOBIN 32.4 uug (23.8-33.4); MEAN CORPUSCULAR HGB CONC 33 g/dL (32.5-36.3); MEAN CORPUSCULAR VOLUME 96.8 fL (73.0-96.2); MONOCYTES # (AUTO) 0.5 K/uL (2.0-10.0); MONOCYTES % (AUTO) 8.5 % (0.0-11.0); NEUTROPHILS # (AUTO) 3.4 K/uL (1.8-8.9); NEUTROPHILS % (AUTO) 57.8 % (38.5-71.5); PLATELET COUNT (AUTO) 188 K/uL (152-348); RED BLOOD CELL COUNT(AUTO) 3.77 MIL/uL (4.06-5.63); WHITE BLOOD COUNT (AUTO) 5.8 K/uL (3.6-10.2)
[2018-09-03 17:47] LABS: CARBON DIOXIDE 33 mmol/L (21-32); CHLORIDE 105 mmol/L (98-107); CREATININE 1.2 mg/dL (0.6-1.3); GLUCOSE 106 mg/dL (74-106); UREA NITROGEN, BLOOD 23 mg/dL (7-18)
[2018-09-03 17:53] LABS: ALANINE AMINOTRANSFERASE 20 U/L (16-63); ALKALINE PHOSPHATASE 66 U/L (50-136); ASPARTATE AMINOTRANSFERASE 11 U/L (15-37); BILIRUBIN,DIRECT 0.1 mg/dL (0.0-0.2); BILIRUBIN,TOTAL 0.3 mg/dL (0.2-1.0); TOTAL PROTEIN, SERUM 6.5 g/dL (6.4-8.2)
[2018-09-03] MEDS ORDERED: NEOMY/BACITRA/POLYMYXIN B OINT UD PACKET TP ONE ×2 (19:22→19:30)
[2018-09-03] MEDS ORDERED: POLYVINYL ALCOHOL OPHT DROPS 15 ML BOTTLE EACHEYE PRN (20:15)
[2018-09-03] MEDS ORDERED: ALBUTEROL SULFATE 2.5 MG/ 0.5 ML NEBU IH SCH (20:15)
[2018-09-03] MEDS ORDERED: ONDANSETRON 4 MG/2 ML VIAL IV PRN (20:30)
[2018-09-03] MEDS ORDERED: Z GUARD REMEDY PASTE 57 GM TUBE TOP PRN (20:30)
[2018-09-03] MEDS ORDERED: MAGNESIUM HYDROXIDE 30 ML LIQUID UDC PO PRN (20:30)
[2018-09-03] MEDS ORDERED: ACETAMINOPHEN 325 MG TABLET PO PRN (20:30)
[2018-09-03 20:47] VITALS: BP 140/67
[2018-09-03] MEDS: AMITRIPTYLINE HCL 10 MG TABLET PO SCH (21:01)
[2018-09-03] MEDS: DOCUSATE SODIUM 100 MG CAPSULE PO SCH (21:01)
[2018-09-03] MEDS: ATORVASTATIN 40 MG TABLET PO SCH (21:02)
[2018-09-03] MEDS: IV NS 1000 ML 1,000 ML IV PRN (21:04)
[2018-09-04] MEDS ORDERED: TEMAZEPAM 30 MG CAPSULE PO PRN
[2018-09-04 00:35] VITALS: BP 125/55
[2018-09-04 05:28] VITALS: BP 130/56
[2018-09-04 06:55] LABS: BASOPHILS % (AUTO) 0.5 % (0.0-2.0); EOSINOPHILS # (AUTO) 0.2 K/uL (0.0-0.7); EOSINOPHILS % (AUTO) 2.9 % (0.0-7.0); HEMATOCRIT 35.8 % (36.7-47.1); HEMOGLOBIN 11.9 g/dL (12.5-16.3); LYMPHOCYTES # (AUTO) 1.8 K/uL (20.0-40.0); LYMPHOCYTES % (AUTO) 30.6 % (20.5-51.5); MEAN CORPUSCULAR HEMOGLOBIN 32.3 uug (23.8-33.4); MEAN CORPUSCULAR HGB CONC 33 g/dL (32.5-36.3); MEAN CORPUSCULAR VOLUME 97.5 fL (73.0-96.2); MONOCYTES # (AUTO) 0.4 K/uL (2.0-10.0); NEUTROPHILS # (AUTO) 3.5 K/uL (1.8-8.9); PLATELET COUNT (AUTO) 176 K/uL (152-348); RED BLOOD CELL COUNT(AUTO) 3.67 MIL/uL (4.06-5.63); WHITE BLOOD COUNT (AUTO) 5.9 K/uL (3.6-10.2)
[2018-09-04 07:24] LABS: THYROID STIMULATING HORMONE 0.914 mIU/mL (0.358-3.740)
[2018-09-04] MEDS: CARVEDILOL 6.25 MG TABLET PO SCH ×2 (08:00→17:36)
[2018-09-04 08:17] LABS: ALANINE AMINOTRANSFERASE 20 U/L (16-63); ALKALINE PHOSPHATASE 64 U/L (50-136); ASPARTATE AMINOTRANSFERASE 10 U/L (15-37); BILIRUBIN,TOTAL 0.5 mg/dL (0.2-1.0); CARBON DIOXIDE 31 mmol/L (21-32); CHLORIDE 108 mmol/L (98-107); CHOLESTEROL 94 mg/dL (<200); GLUCOSE 85 mg/dL (74-106); HDL CHOLESTEROL 49 mg/dL (40-60); MAGNESIUM 1.8 mg/dL (1.8-2.4); PHOSPHOROUS 3.6 mg/dL (2.5-4.9); POTASSIUM 4.1 mmol/L (3.5-5.1); TRIGLYCERIDES 109 MG/DL (30-150); UREA NITROGEN, BLOOD 21 mg/dL (7-18)
[2018-09-04] MEDS: ALBUTEROL SULFATE 1.25 MG/3 ML NEBU NEB PRN ×4 (08:31→23:58)
[2018-09-04] MEDS: BUDESONIDE 0.25 MG/2 ML NEBU IH SCH ×2 (08:31→19:03)
[2018-09-04] MEDS: AMLODIPINE 5 MG TABLET PO SCH (09:00)
[2018-09-04] MEDS ORDERED: MIRALAX 17 GM POWD.PACK PO SCH (09:00)
[2018-09-04] MEDS: CARBIDOPA/LEVODOPA 25-100MG TABLET PO SCH ×2 (09:57→17:36)
[2018-09-04] MEDS: CEPHALEXIN MONOHYDRATE 500 MG CAPSULE PO SCH ×3 (09:57→17:35)
[2018-09-04] MEDS: ENSURE ENLIVE (VAN) 240 ML LIQUID PO SCH ×3 (10:45→18:23)
[2018-09-04 11:00] VITALS: BP 127/59
[2018-09-04] MEDS: MIRALAX 17 GM POWD.PACK PO SCH (12:36)
[2018-09-04 15:49] VITALS: BP 120/45
[2018-09-04] MEDS: IV NS 1000 ML 1,000 ML IV PRN (17:52)
[2018-09-04 19:10] VITALS: BP 131/71
[2018-09-04] MEDS ORDERED: ASPIRIN EC 81 MG TABLET.DR PO SCH (19:16)
[2018-09-04] MEDS: DOCUSATE SODIUM 100 MG CAPSULE PO SCH (20:11)
[2018-09-04] MEDS: AMITRIPTYLINE HCL 10 MG TABLET PO SCH (20:12)
[2018-09-04] MEDS: ATORVASTATIN 40 MG TABLET PO SCH (20:12)
[2018-09-04] MEDS: HYDROCODONE/APAP 5-325MG TABLET PO PRN (22:48)
[2018-09-04 23:27] VITALS: BP 110/53
[2018-09-05 01:23] LABS: *BILIRUBIN,URIN NEGATIVE (NEGATIVE); *BLOOD, URINE NEGATIVE (NEGATIVE); *CLARITY,URINE CLEAR (CLEAR); *COLOR,URINE YELLOW (YELLOW); *KETONES,URINE NEGATIVE (NEGATIVE); *PROTEIN,URINE NEGATIVE (NEGATIVE); *UROBILINOGEN,URINE 0.2 E.U./dl (NORMAL); LEUKOCYTE ESTERASE ,URINE NEGATIVE (NEGATIVE); NITRITE, URINE NEGATIVE (NEGATIVE); UGLUCOSE NEGATIVE (NEGATIVE)
[2018-09-05 01:40] LABS: BACTERIA,URINE NONE SEEN /HPF (NONE SEEN); SQUAMOUS EPITHELIAL CELL,UR FEW /HPF (NONE SEEN); WBC,URINE 0-3 /HPF (0-3)
[2018-09-05 01:51] LABS: *AMPHETAMINE, URINE NEGATIVE (NEGATIVE); *BARBITURATE, URINE NEGATIVE (NEGATIVE); *CANNABINOID, URINE NEGATIVE (NEGATIVE); *COCCAINE, URINE NEGATIVE (NEGATIVE); *OPIATE, URINE POSITIVE (NEGATIVE); *PHENCYCLIDINE SCREEN,URINE NEGATIVE (NEGATIVE)
[2018-09-05] MEDS: ALBUTEROL SULFATE 1.25 MG/3 ML NEBU NEB PRN ×2 (02:30→15:40)
[2018-09-05 03:17] VITALS: BP 130/58
[2018-09-05] MEDS: BUDESONIDE 0.25 MG/2 ML NEBU IH SCH ×2 (07:32→19:22)
[2018-09-05] MEDS: IV NS 1000 ML 1,000 ML IV PRN (07:44)
[2018-09-05] MEDS: ENSURE ENLIVE (VAN) 240 ML LIQUID PO SCH ×3 (08:24→16:53)
[2018-09-05] MEDS: MIRALAX 17 GM POWD.PACK PO SCH (08:26)
[2018-09-05] MEDS: CARBIDOPA/LEVODOPA 25-100MG TABLET PO SCH ×2 (08:26→16:54)
[2018-09-05] MEDS: CEPHALEXIN MONOHYDRATE 500 MG CAPSULE PO SCH ×3 (08:27→16:53)
[2018-09-05] MEDS: CARVEDILOL 6.25 MG TABLET PO SCH ×2 (08:30→17:00)
[2018-09-05] MEDS: AMLODIPINE 5 MG TABLET PO SCH (08:30)
[2018-09-05 11:23] VITALS: BP 111/54
[2018-09-05 15:39] VITALS: BP 144/65
[2018-09-05] MEDS: ALBUTEROL SULFATE 1.25 MG/3 ML NEBU NEB SCH (19:22)
[2018-09-05 19:25] VITALS: BP 121/53
[2018-09-05] MEDS: AMITRIPTYLINE HCL 10 MG TABLET PO SCH (20:01)
[2018-09-05] MEDS: DOCUSATE SODIUM 100 MG CAPSULE PO SCH (20:01)
[2018-09-05] MEDS: ATORVASTATIN 40 MG TABLET PO SCH (20:01)
[2018-09-06] MEDS: HYDROCODONE/APAP 5-325MG TABLET PO PRN (00:25)
[2018-09-06] MEDS: ALBUTEROL SULFATE 1.25 MG/3 ML NEBU NEB SCH ×3 (00:30→13:46)
[2018-09-06 03:23] VITALS: BP 127/59
[2018-09-06] MEDS: BUDESONIDE 0.25 MG/2 ML NEBU IH SCH (07:41)
[2018-09-06] MEDS: MIRALAX 17 GM POWD.PACK PO SCH (08:14)
[2018-09-06] MEDS: AMLODIPINE 5 MG TABLET PO SCH (08:14)
[2018-09-06] MEDS: CEPHALEXIN MONOHYDRATE 500 MG CAPSULE PO SCH ×2 (08:14→12:40)
[2018-09-06] MEDS: CARVEDILOL 6.25 MG TABLET PO SCH (08:15)
[2018-09-06] MEDS: CARBIDOPA/LEVODOPA 25-100MG TABLET PO SCH (08:16)
[2018-09-06] MEDS: ENSURE ENLIVE (VAN) 240 ML LIQUID PO SCH ×2 (08:16→12:40)
[2018-09-06 11:41] VITALS: BP 127/54
[2018-09-06] MEDS ORDERED: ACET325T53 PO (11:49)
[2018-09-06] MEDS ORDERED: IPRA0.2S48 NEB (11:49)
[2018-09-06] MEDS ORDERED: TEMA30CA PO (11:49)
[2018-09-06] MEDS ORDERED: ATOR10TA PO (11:49)
[2018-09-06] MEDS ORDERED: ACID1TAB4 PO (11:49)
[2018-09-06] MEDS ORDERED: BUDE0.25 IH (11:49)
[2018-09-06] MEDS ORDERED: MENT71OI TOP (11:49)
[2018-09-06] MEDS ORDERED: CEPH500C2 PO (11:49)
[2018-09-06] MEDS ORDERED: CARV6.252 PO (11:49)
== END 2018-09-06 14:30 | DRG 56 ==
LOC: ER 16:49 → TELE 19:54 → MED 09-05 20:29
PROVIDERS: ADMIT Nurse Practitioner Acute Care; ATTEND Nurse Practitioner Acute Care
DX: G20 Parkinson's disease (principal); N17.0 Acute kidney failure with tubular necrosis; J44.0 Chronic obstructive pulmonary disease with (acute) lower respiratory infection; D68.59 Other primary thrombophilia; J20.8 Acute bronchitis due to other specified organisms; G23.1 Progressive supranuclear ophthalmoplegia [Steele-Richardson-Olszewski]; S01.311D Laceration without foreign body of right ear, subsequent encounter; W19.XXXD Unspecified fall, subsequent encounter; I25.2 Old myocardial infarction; Z91.81 History of falling; I25.10 Atherosclerotic heart disease of native coronary artery without angina pectoris; Z96.653 Presence of artificial knee joint, bilateral; Z95.5 Presence of coronary angioplasty implant and graft; N40.0 Benign prostatic hyperplasia without lower urinary tract symptoms; R13.10 Dysphagia, unspecified; K21.9 Gastro-esophageal reflux disease without esophagitis; F41.9 Anxiety disorder, unspecified; M51.36 Other intervertebral disc degeneration, lumbar region; D53.9 Nutritional anemia, unspecified; K57.30 Diverticulosis of large intestine without perforation or abscess without bleeding; Z74.09 Other reduced mobility; S70.01XD Contusion of right hip, subsequent encounter; Z87.891 Personal history of nicotine dependence; E78.5 Hyperlipidemia, unspecified; E86.0 Dehydration; I10 Essential (primary) hypertension; Z86.73 Personal history of transient ischemic attack (TIA), and cerebral infarction without residual deficits; K59.09 Other constipation; R16.1 Splenomegaly, not elsewhere classified; R29.6 Repeated falls; K40.90 Unilateral inguinal hernia, without obstruction or gangrene, not specified as recurrent; M19.90 Unspecified osteoarthritis, unspecified site
CPT/HCPCS: 36415; 70030-TC; 80307; 83735; 84100; 84443; 85025; 85730; 92526; 92610; 93005; 94640; 97110; 97116; 97530; A4663; G0378; J3590; J7030

== ENCOUNTER 2018-09-06 14:33 | Inpatient (IN) | payer MEDICARE, OTHER ==
[~2018-09-06] VITALS: Ht 185.4 cm; Wt 88.9 kg
[2018-09-06 14:30] VITALS: BP 113/57
[~2018-09-06 14:33] MED LIST changes: +ACET325T53 PO; +ACID1TAB4 PO; +ATOR10TA PO; +BUDE0.25 IH; -CARV6.25 PO; +CARV6.252 PO; +CEPH-570 PO; +CEPH500C2 PO; +IPRA0.2S48 NEB; -MAGN400O6 PO; +MENT71OI TOP; -ONDA4TAB5 IV; +P EP PO; -PULMICORT HHN; +TEMA30CA PO
--- NOTE | 2018-09-06 14:40 | NUR ---
Patient arrived to unit at this time via wheelchair from Med-Surg, 113/57, 67 pulse, 20 respirations, 97% oxygen on room air, 98.2 oral temperature, sutured laceration noted to right ear lobe, complains of pain 01/27, no signs of distress noted, MD Lu and Micha notified of patients arrival, MRSA swab completed, call light placed in reach, bed locked and in lowest position
[2018-09-06] MEDS ORDERED: MAGNESIUM HYDROXIDE 30 ML LIQUID UDC PO PRN (15:00)
[2018-09-06] MEDS ORDERED: Z GUARD REMEDY PASTE 57 GM TUBE TOP PRN (15:00)
[2018-09-06] MEDS ORDERED: ACETAMINOPHEN 325 MG TABLET PO PRN ×2 (15:00→16:15)
[2018-09-06] MEDS ORDERED: THERAHONEY GEL 1.5 OZ TUBE TOP PRN (16:15)
[2018-09-06] MEDS ORDERED: ALBUTEROL SULFATE 2.5 MG/ 0.5 ML NEBU IH PRN (16:15)
[2018-09-06 16:30] VITALS: BP 117/62
[2018-09-06] MEDS ORDERED: Medication Not On Formulary EA (Lactose-Reduced Food (Ensure Enlive) 237 ML) PO SCH (17:00)
[2018-09-06] MEDS: ENSURE ENLIVE (VAN) 240 ML LIQUID PO SCH (17:00)
[2018-09-06] MEDS ORDERED: POVIDONE OP SCH (17:00)
[2018-09-06] MEDS ORDERED: POLYVINYL ALCOHOL OP SCH (17:00)
[2018-09-06] MEDS ORDERED: P EPHED HCL PO SCH (17:00)
[2018-09-06] MEDS ORDERED: [UNRECOGNIZED DRUG - OTHER] PO SCH (17:00)
[2018-09-06] MEDS: POLYVINYL ALCOHOL OPHT DROPS 15 ML BOTTLE EACHEYE SCH (17:57)
[2018-09-06] MEDS: ALBUTEROL SULFATE 1.25 MG/3 ML NEBU NEB PRN (17:57)
[2018-09-06] MEDS: CARBIDOPA/LEVODOPA 25-100MG TABLET PO SCH (17:58)
[2018-09-06] MEDS: ACIDOPHILUS/BULGARICUS CHEW TAB PO SCH (17:58)
[2018-09-06] MEDS: IPRATROPIUM BROMIDE 0.5 MG/2.5 ML NEBU NEB PRN (17:58)
[2018-09-06] MEDS: CARVEDILOL 6.25 MG TABLET PO SCH (18:00)
[2018-09-06] MEDS: BUDESONIDE 0.25 MG/2 ML NEBU IH SCH (19:18)
[2018-09-06 20:32] VITALS: BP 119/55
[2018-09-06] MEDS ORDERED: DOCUSATE SODIUM 100 MG CAPSULE PO SCH (21:00)
[2018-09-06] MEDS: ATORVASTATIN 10 MG TABLET PO SCH (21:01)
[2018-09-06] MEDS: DOCUSATE SODIUM 100 MG CAPSULE PO SCH (21:01)
[2018-09-06] MEDS: CEPHALEXIN MONOHYDRATE 500 MG CAPSULE PO SCH (21:01)
[2018-09-06] MEDS: AMITRIPTYLINE HCL 10 MG TABLET PO SCH (21:02)
[2018-09-06] MEDS: HYDROCODONE/APAP 5-325MG TABLET PO PRN (21:03)
[2018-09-07 05:00] VITALS: BP 112/62
--- NOTE | 2018-09-07 05:13 | NUR ---
aaox4. cooperative and pleasant. tolerated po meds with applesauce. no acute distress noted. kept comfortable. pain meds given as needed plus requested a sleeping pill. slept most of the shift. OOB with walker with assist. gait unsteady, fall risk. needs attended. no BM noted this shift. will monitor patient. VSS.
[2018-09-07] MEDS: CEPHALEXIN MONOHYDRATE 500 MG CAPSULE PO SCH ×3 (06:14→22:34)
[2018-09-07] MEDS: BUDESONIDE 0.25 MG/2 ML NEBU IH SCH ×2 (08:27→19:00)
[2018-09-07] MEDS: IPRATROPIUM BROMIDE 0.5 MG/2.5 ML NEBU NEB PRN ×2 (08:27→19:00)
[2018-09-07] MEDS: ALBUTEROL SULFATE 1.25 MG/3 ML NEBU NEB PRN ×2 (08:27→19:00)
[2018-09-07] MEDS: POLYVINYL ALCOHOL OPHT DROPS 15 ML BOTTLE EACHEYE SCH ×3 (08:32→17:50)
[2018-09-07] MEDS: ACIDOPHILUS/BULGARICUS CHEW TAB PO SCH ×2 (08:32→17:51)
[2018-09-07] MEDS: CARVEDILOL 6.25 MG TABLET PO SCH ×2 (08:32→17:51)
[2018-09-07] MEDS: AMLODIPINE 5 MG TABLET PO SCH (08:33)
[2018-09-07] MEDS: CARBIDOPA/LEVODOPA 25-100MG TABLET PO SCH ×2 (08:33→17:51)
[2018-09-07] MEDS: ENSURE ENLIVE (VAN) 240 ML LIQUID PO SCH ×3 (08:37→17:51)
[2018-09-07] MEDS ORDERED: MIRALAX 17 GM POWD.PACK PO SCH (09:00)
--- NOTE | 2018-09-07 14:53 | NUR ---
WHILE WORKING WITH OT HE SUSTAINED A SKIN TEAR TO THE TOP OF LEFT HAND STERI STRIPS AND BANDAID APPLIED. IN NO ACUTE DISTRESS
[2018-09-07 16:00] VITALS: BP 154/74
[2018-09-07 19:42] VITALS: BP 119/56
--- NOTE | 2018-09-07 20:00 | NUR ---
Patient received at bed, AAO X3. No acute distress or SOB noted. Able to makes needs known. Unclear speaking, use typing on cell phone for better communication. On 2 Lit/min O2 via NC. Brief assessment done. No complain of pain at this time. Safety measures maintained. Bed in low position, brake and alarm on, side rails upx2. Call light and personal belongings within reach. Continue to monitor.
[2018-09-07] MEDS: ATORVASTATIN 10 MG TABLET PO SCH (22:33)
[2018-09-07] MEDS: DOCUSATE SODIUM 100 MG CAPSULE PO SCH (22:33)
[2018-09-07] MEDS: AMITRIPTYLINE HCL 10 MG TABLET PO SCH (22:35)
[2018-09-07] MEDS: HYDROCODONE/APAP 5-325MG TABLET PO PRN (22:36)
[2018-09-08 05:00] VITALS: BP 151/59
[2018-09-08] MEDS: CEPHALEXIN MONOHYDRATE 500 MG CAPSULE PO SCH ×3 (05:29→21:17)
--- NOTE | 2018-09-08 06:17 | NUR ---
End of the shift note Patient was stable throughout the shift. No sign of acute distress or SOB noted. On O2 2 L/min via N/C. Pain assessed and reassessed after pain medication. Medication given as ordered. Safety measures maintained. All needs attended promptly. Bed brake and alarm on, side rails upx2. Call light and personal belonging within reach. Continue to monitor and will endorse to the day shift nurse.
[2018-09-08 08:00] VITALS: BP 122/73
[2018-09-08] MEDS: ALBUTEROL SULFATE 1.25 MG/3 ML NEBU NEB PRN ×2 (08:30→19:48)
[2018-09-08] MEDS: IPRATROPIUM BROMIDE 0.5 MG/2.5 ML NEBU NEB PRN ×2 (08:30→19:48)
[2018-09-08] MEDS: BUDESONIDE 0.25 MG/2 ML NEBU IH SCH ×2 (08:30→19:47)
[2018-09-08] MEDS: MIRALAX 17 GM POWD.PACK PO SCH (09:00)
[2018-09-08] MEDS: AMLODIPINE 5 MG TABLET PO SCH (09:36)
[2018-09-08] MEDS: ACIDOPHILUS/BULGARICUS CHEW TAB PO SCH ×2 (09:36→17:25)
[2018-09-08] MEDS: CARVEDILOL 6.25 MG TABLET PO SCH ×2 (09:37→17:25)
[2018-09-08] MEDS: POLYVINYL ALCOHOL OPHT DROPS 15 ML BOTTLE EACHEYE SCH ×3 (09:37→17:24)
[2018-09-08] MEDS: CARBIDOPA/LEVODOPA 25-100MG TABLET PO SCH ×2 (09:38→17:25)
[2018-09-08] MEDS: ENSURE ENLIVE (VAN) 240 ML LIQUID PO SCH ×3 (09:38→17:24)
[2018-09-08] MEDS: ASPIRIN EC 81 MG TABLET.DR PO SCH (09:42)
--- NOTE | 2018-09-08 10:37 | NUR ---
Received pt. in bed with eyes close, comfortable. Pt. denies SOB or CP at this time, noted with slurring. Pt. able to communicate with use of personal IPad. A/Ox3 able to use call light system. All due AM medications administered as ordered and tolerated well. Safety measures in place. All pt. need promptly attended. Call light and all frequently used items within pt. reach. Will continue to monitor accordingly.
[2018-09-08 15:55] VITALS: BP 107/38
--- NOTE | 2018-09-08 18:43 | NUR ---
EOS Note: No significant change during this shift. No changes in mentation, remain A/OX3. All due medications given and tolerated well. No new skin condition identified. Denies pain or discomfort. On PO ATB for dx: PNA, no ASE noted. Provided tx to RT. ear laceration and RT hand skin tear. All pt. needs provided and met. Safety measures in place. Call light and all frequently used items within pt. reach. Will endorse to oncoming shift accordingly.
--- NOTE | 2018-09-08 20:00 | NUR ---
Patient received at bed, AAO X3. No acute distress or SOB noted. Able to makes needs known. Unclear speaking, used typing on cell phone for effective communication. On room air with O2 Sat 97%. Brief assessment done. No complain of pain at this time. Safety measures maintained. Bed in low position, brake and alarm on, side rails upx2. Call light and personal belongings within reach. Continue to monitor.
[2018-09-08 20:11] VITALS: BP 118/47
[2018-09-08] MEDS: ATORVASTATIN 10 MG TABLET PO SCH (21:17)
[2018-09-08] MEDS: DOCUSATE SODIUM 100 MG CAPSULE PO SCH (21:17)
[2018-09-08] MEDS: AMITRIPTYLINE HCL 10 MG TABLET PO SCH (21:17)
[2018-09-08] MEDS: HYDROCODONE/APAP 5-325MG TABLET PO PRN (21:18)
[2018-09-09 04:00] VITALS: BP 145/76
[2018-09-09] MEDS: CEPHALEXIN MONOHYDRATE 500 MG CAPSULE PO SCH ×2 (05:45→13:00)
--- NOTE | 2018-09-09 05:59 | NUR ---
End of the shift note Patient was stable throughout the shift. No sign of acute distress or SOB noted. On room air. Pain assessed and reassessed after pain medication. Medication given as ordered. Safety measures maintained. All needs attended promptly. Bed brake and alarm on, side rails upx2. Call light and personal belonging within reach. Continue to monitor and will endorse to the day shift nurse.
[2018-09-09 08:00] VITALS: BP 168/81
[2018-09-09] MEDS: MIRALAX 17 GM POWD.PACK PO SCH (08:11)
[2018-09-09] MEDS: POLYVINYL ALCOHOL OPHT DROPS 15 ML BOTTLE EACHEYE SCH ×3 (08:11→17:47)
[2018-09-09] MEDS: ACIDOPHILUS/BULGARICUS CHEW TAB PO SCH ×2 (08:11→17:47)
[2018-09-09] MEDS: BUDESONIDE 0.25 MG/2 ML NEBU IH SCH ×2 (08:12→19:45)
[2018-09-09] MEDS: AMLODIPINE 5 MG TABLET PO SCH (08:12)
[2018-09-09] MEDS: CARBIDOPA/LEVODOPA 25-100MG TABLET PO SCH ×2 (08:12→17:47)
[2018-09-09] MEDS: ALBUTEROL SULFATE 1.25 MG/3 ML NEBU NEB PRN ×3 (08:12→19:45)
[2018-09-09] MEDS: ENSURE ENLIVE (VAN) 240 ML LIQUID PO SCH ×3 (08:12→17:47)
[2018-09-09] MEDS: CARVEDILOL 6.25 MG TABLET PO SCH ×2 (08:12→17:47)
[2018-09-09 16:00] VITALS: BP 130/63
[2018-09-09] MEDS: IPRATROPIUM BROMIDE 0.5 MG/2.5 ML NEBU NEB PRN (19:45)
--- NOTE | 2018-09-09 20:00 | NUR ---
Patient received at bed, AAO X3. No acute distress or SOB noted. Able to makes needs known. Unclear speaking, used typing on cell phone for effective communication. On room air with O2 Sat 93%. Brief assessment done. No complain of pain at this time. Safety measures maintained. Bed in low position, brake and alarm on, side rails upx2. Call light and personal belongings within reach. Continue to monitor.
[2018-09-09 20:16] VITALS: BP 128/64
[2018-09-09] MEDS: ATORVASTATIN 10 MG TABLET PO SCH (20:44)
[2018-09-09] MEDS: DOCUSATE SODIUM 100 MG CAPSULE PO SCH (20:44)
[2018-09-09] MEDS: AMITRIPTYLINE HCL 10 MG TABLET PO SCH (20:45)
[2018-09-09] MEDS: HYDROCODONE/APAP 5-325MG TABLET PO PRN (20:46)
--- NOTE | 2018-09-09 21:37 | NUR ---
INTERDISCIPLINARY TEAM CONFERENCE
[2018-09-09 22:00] VITALS: BP 128/64
[2018-09-09] MEDS: TEMAZEPAM 30 MG CAPSULE PO PRN (23:01)
--- NOTE | 2018-09-10 05:42 | NUR ---
End of the shift note Patient was stable throughout the shift. No sign of acute distress or SOB noted. On room air and O2 2 Lit/min intermittently. Pain assessed and reassessed after pain medication. Medication given as ordered. Safety measures maintained. All needs attended promptly. Bed brake and alarm on, side rails upx2. Call light and personal belonging within reach. Continue to monitor and will endorse to the day shift nurse accordingly.
[2018-09-10 05:44] VITALS: BP 114/68
[2018-09-10 05:50] VITALS: BP 114/68
[2018-09-10] MEDS: IPRATROPIUM BROMIDE 0.5 MG/2.5 ML NEBU NEB PRN ×2 (07:22→13:36)
[2018-09-10] MEDS: ALBUTEROL SULFATE 1.25 MG/3 ML NEBU NEB PRN ×2 (07:22→13:36)
[2018-09-10] MEDS: BUDESONIDE 0.25 MG/2 ML NEBU IH SCH ×2 (07:22→20:06)
[2018-09-10] MEDS: CARVEDILOL 6.25 MG TABLET PO SCH ×2 (08:00→17:39)
[2018-09-10] MEDS: ENSURE ENLIVE (VAN) 240 ML LIQUID PO SCH ×3 (08:00→17:37)
[2018-09-10 08:46] VITALS: BP 121/51
[2018-09-10] MEDS: AMLODIPINE 5 MG TABLET PO SCH (09:00)
[2018-09-10] MEDS: ACIDOPHILUS/BULGARICUS CHEW TAB PO SCH ×2 (10:06→17:36)
[2018-09-10] MEDS: POLYVINYL ALCOHOL OPHT DROPS 15 ML BOTTLE EACHEYE SCH ×3 (10:06→17:37)
[2018-09-10] MEDS: CARBIDOPA/LEVODOPA 25-100MG TABLET PO SCH ×2 (10:06→17:36)
[2018-09-10] MEDS: MIRALAX 17 GM POWD.PACK PO SCH (10:07)
[2018-09-10 16:00] VITALS: BP 108/48
[2018-09-10 20:00] VITALS: BP 132/57
[2018-09-10] MEDS: DOCUSATE SODIUM 100 MG CAPSULE PO SCH (21:26)
[2018-09-10] MEDS: AMITRIPTYLINE HCL 10 MG TABLET PO SCH (21:26)
[2018-09-10] MEDS: ATORVASTATIN 10 MG TABLET PO SCH (21:26)
[2018-09-10] MEDS: HYDROCODONE/APAP 5-325MG TABLET PO PRN (21:27)
[2018-09-10] MEDS: TEMAZEPAM 30 MG CAPSULE PO PRN (23:05)
--- NOTE | 2018-09-11 00:16 | NUR ---
Pt resting in bed and watching TV at the beginning of shift. On room air and 2L O2, pt takes it off and put it back on intermittently. No acute distress noted. C/ o pain on right shoulder. Pain med and other routine meds given as ordered. Tolerating well with vanilla pudding 2 meds at a time. Safety measures maintained. Call light and personal belongings within reach. Continue to monitor.
[2018-09-11 04:00] VITALS: BP 134/58
[2018-09-11] MEDS: BUDESONIDE 0.25 MG/2 ML NEBU IH SCH ×2 (06:45→19:46)
[2018-09-11 07:13] LABS: BASOPHILS % (AUTO) 0.6 % (0.0-2.0); EOSINOPHILS # (AUTO) 0.2 K/uL (0.0-0.7); EOSINOPHILS % (AUTO) 3.3 % (0.0-7.0); HEMATOCRIT 35.1 % (36.7-47.1); HEMOGLOBIN 11.5 g/dL (12.5-16.3); LYMPHOCYTES % (AUTO) 38.8 % (20.5-51.5); MEAN CORPUSCULAR HEMOGLOBIN 32.1 uug (23.8-33.4); MEAN CORPUSCULAR HGB CONC 33 g/dL (32.5-36.3); MEAN CORPUSCULAR VOLUME 97.5 fL (73.0-96.2); MONOCYTES # (AUTO) 0.4 K/uL (2.0-10.0); MONOCYTES % (AUTO) 8.3 % (0.0-11.0); NEUTROPHILS # (AUTO) 2.5 K/uL (1.8-8.9); PLATELET COUNT (AUTO) 177 K/uL (152-348); WHITE BLOOD COUNT (AUTO) 5.1 K/uL (3.6-10.2)
[2018-09-11 07:30] LABS: ALANINE AMINOTRANSFERASE 13 U/L (16-63); ALKALINE PHOSPHATASE 67 U/L (50-136); ASPARTATE AMINOTRANSFERASE 11 U/L (15-37); BILIRUBIN,TOTAL 0.5 mg/dL (0.2-1.0); CARBON DIOXIDE 32 mmol/L (21-32); CHLORIDE 106 mmol/L (98-107); CREATININE 0.9 mg/dL (0.6-1.3); GLUCOSE 85 mg/dL (74-106); TOTAL PROTEIN, SERUM 6.2 g/dL (6.4-8.2); UREA NITROGEN, BLOOD 24 mg/dL (7-18)
[2018-09-11] MEDS: ACIDOPHILUS/BULGARICUS CHEW TAB PO SCH ×2 (09:02→17:29)
[2018-09-11] MEDS: POLYVINYL ALCOHOL OPHT DROPS 15 ML BOTTLE EACHEYE SCH ×3 (09:02→17:28)
[2018-09-11] MEDS: CARBIDOPA/LEVODOPA 25-100MG TABLET PO SCH ×2 (09:03→17:28)
[2018-09-11] MEDS: CARVEDILOL 6.25 MG TABLET PO SCH ×2 (09:03→17:39)
[2018-09-11] MEDS: MIRALAX 17 GM POWD.PACK PO SCH (09:03)
[2018-09-11] MEDS: AMLODIPINE 5 MG TABLET PO SCH (09:03)
[2018-09-11] MEDS: ENSURE ENLIVE (VAN) 240 ML LIQUID PO SCH ×3 (09:04→17:39)
[2018-09-11] MEDS: ASPIRIN EC 81 MG TABLET.DR PO SCH (09:06)
[2018-09-11] MEDS: HYDROCODONE/APAP 5-325MG TABLET PO PRN ×2 (09:12→20:40)
--- NOTE | 2018-09-11 16:09 | NUR ---
Received patient alert in stable condition. Continue therapy for unsteady gait, ADL activity and ambulation. not in distress. Ongoing pain management prior to therapy. Continue oxygen via nasal cannula PRN. SPO2- 94% will continue monitor
[2018-09-11] MEDS: ALBUTEROL SULFATE 1.25 MG/3 ML NEBU NEB PRN (17:16)
[2018-09-11] MEDS: IPRATROPIUM BROMIDE 0.5 MG/2.5 ML NEBU NEB PRN (17:16)
[2018-09-11 20:00] VITALS: BP 124/61
[2018-09-11] MEDS: AMITRIPTYLINE HCL 10 MG TABLET PO SCH (20:31)
[2018-09-11] MEDS: ATORVASTATIN 10 MG TABLET PO SCH (20:31)
[2018-09-11] MEDS: DOCUSATE SODIUM 100 MG CAPSULE PO SCH (20:31)
[2018-09-12 04:30] VITALS: BP 136/68
[2018-09-12] MEDS: BUDESONIDE 0.25 MG/2 ML NEBU IH SCH ×2 (07:14→19:10)
[2018-09-12] MEDS: IPRATROPIUM BROMIDE 0.5 MG/2.5 ML NEBU NEB PRN ×2 (07:14→13:12)
[2018-09-12] MEDS: ALBUTEROL SULFATE 1.25 MG/3 ML NEBU NEB PRN ×2 (07:14→13:12)
[2018-09-12] MEDS: ACIDOPHILUS/BULGARICUS CHEW TAB PO SCH ×2 (08:16→17:46)
[2018-09-12] MEDS: AMLODIPINE 5 MG TABLET PO SCH (08:16)
[2018-09-12] MEDS: CARBIDOPA/LEVODOPA 25-100MG TABLET PO SCH ×2 (08:16→17:46)
[2018-09-12] MEDS: CARVEDILOL 6.25 MG TABLET PO SCH ×2 (08:17→17:46)
[2018-09-12] MEDS: MIRALAX 17 GM POWD.PACK PO SCH (08:17)
[2018-09-12] MEDS: POLYVINYL ALCOHOL OPHT DROPS 15 ML BOTTLE EACHEYE SCH ×3 (08:18→17:47)
[2018-09-12] MEDS: ENSURE ENLIVE (VAN) 240 ML LIQUID PO SCH ×3 (08:18→17:46)
[2018-09-12 16:41] VITALS: BP 113/55
[2018-09-12 20:00] VITALS: BP 124/57
[2018-09-12] MEDS: AMITRIPTYLINE HCL 10 MG TABLET PO SCH (21:06)
[2018-09-12] MEDS: DOCUSATE SODIUM 100 MG CAPSULE PO SCH (21:06)
[2018-09-12] MEDS: ATORVASTATIN 10 MG TABLET PO SCH (21:06)
[2018-09-12] MEDS: HYDROCODONE/APAP 5-325MG TABLET PO PRN (22:32)
[2018-09-13] MEDS: TEMAZEPAM 30 MG CAPSULE PO PRN ×2 (00:29→22:48)
[2018-09-13 04:00] VITALS: BP 109/52
[2018-09-13] MEDS: ALBUTEROL SULFATE 1.25 MG/3 ML NEBU NEB PRN ×3 (07:11→18:56)
[2018-09-13] MEDS: IPRATROPIUM BROMIDE 0.5 MG/2.5 ML NEBU NEB PRN ×3 (07:11→18:56)
[2018-09-13] MEDS: BUDESONIDE 0.25 MG/2 ML NEBU IH SCH ×2 (07:11→18:56)
[2018-09-13] MEDS: CARVEDILOL 6.25 MG TABLET PO SCH ×2 (08:22→17:05)
[2018-09-13] MEDS: CARBIDOPA/LEVODOPA 25-100MG TABLET PO SCH ×2 (08:22→17:00)
[2018-09-13] MEDS: MIRALAX 17 GM POWD.PACK PO SCH (08:22)
[2018-09-13] MEDS: AMLODIPINE 5 MG TABLET PO SCH (08:22)
[2018-09-13] MEDS: POLYVINYL ALCOHOL OPHT DROPS 15 ML BOTTLE EACHEYE SCH ×3 (08:23→17:00)
[2018-09-13] MEDS: ENSURE ENLIVE (VAN) 240 ML LIQUID PO SCH ×3 (08:23→17:05)
[2018-09-13] MEDS: ACIDOPHILUS/BULGARICUS CHEW TAB PO SCH (08:23)
[2018-09-13 16:23] VITALS: BP 131/44
[2018-09-13 20:17] VITALS: BP 120/48
[2018-09-13] MEDS: AMITRIPTYLINE HCL 10 MG TABLET PO SCH (20:24)
[2018-09-13] MEDS: DOCUSATE SODIUM 100 MG CAPSULE PO SCH (20:24)
[2018-09-13] MEDS: ATORVASTATIN 10 MG TABLET PO SCH (20:25)
--- NOTE | 2018-09-13 20:30 | NUR ---
BEDSIDE TEACHING DONE BY PHARMACIST WANDA REGARDING COPD AND TREATMENTS .
--- NOTE | 2018-09-13 22:35 | NUR ---
SHANIA REQUESTED SLEEPING MEDICATION GIVEN TOLERATED WITH VANILLA PUDDING . HOB UP . ASPIRATION PRECAUTION OBSERVED .
[2018-09-14] MEDS: HYDROCODONE/APAP 5-325MG TABLET PO PRN ×2 (04:24→21:04)
[2018-09-14 04:30] VITALS: BP 121/57
[2018-09-14] MEDS: BUDESONIDE 0.25 MG/2 ML NEBU IH SCH ×2 (06:30→18:57)
[2018-09-14 08:00] VITALS: BP 132/63
[2018-09-14] MEDS: POLYVINYL ALCOHOL OPHT DROPS 15 ML BOTTLE EACHEYE SCH ×3 (09:31→17:09)
[2018-09-14] MEDS: CARVEDILOL 6.25 MG TABLET PO SCH ×2 (09:31→17:10)
[2018-09-14] MEDS: MIRALAX 17 GM POWD.PACK PO SCH (09:31)
[2018-09-14] MEDS: ENSURE ENLIVE (VAN) 240 ML LIQUID PO SCH ×3 (09:31→17:09)
[2018-09-14] MEDS: CARBIDOPA/LEVODOPA 25-100MG TABLET PO SCH ×2 (09:32→17:09)
[2018-09-14] MEDS: AMLODIPINE 5 MG TABLET PO SCH (09:32)
[2018-09-14] MEDS: ALBUTEROL SULFATE 1.25 MG/3 ML NEBU NEB PRN ×2 (12:51→18:57)
[2018-09-14] MEDS: IPRATROPIUM BROMIDE 0.5 MG/2.5 ML NEBU NEB PRN ×2 (12:52→18:57)
--- NOTE | 2018-09-14 13:15 | NUR ---
INTERDISCIPLINARY TEAM CONFERENCE
[2018-09-14 15:54] VITALS: BP 115/60
--- NOTE | 2018-09-14 20:00 | NUR ---
Awake, alert, watching TV. Makes needs known by gestures and writing on Ipad. Resp easy and regular. Appreciative of care. Nursing comfort measures and fall/safety precautions observed at all times.
[2018-09-14 20:10] VITALS: BP 109/51
[2018-09-14] MEDS: DOCUSATE SODIUM 100 MG CAPSULE PO SCH (21:03)
[2018-09-14] MEDS: AMITRIPTYLINE HCL 10 MG TABLET PO SCH (21:03)
[2018-09-14] MEDS: ATORVASTATIN 10 MG TABLET PO SCH (21:03)
[2018-09-14] MEDS: TEMAZEPAM 30 MG CAPSULE PO PRN (22:50)
--- NOTE | 2018-09-14 23:00 | NUR ---
Takes PO meds with vanilla pudding. Aspiration precautions observed. Pain and sleeping pills provided as requested. Continue to monitor.
[2018-09-15 04:30] VITALS: BP 133/57
[2018-09-15] MEDS: HYDROCODONE/APAP 5-325MG TABLET PO PRN (05:38)
--- NOTE | 2018-09-15 06:00 | NUR ---
Uneventful, restful night. Able to sleep through the night. All needs attended and met. Nursing comfort measures and fall/safety precautions enforced at all times. Very appreciative of care.
[2018-09-15] MEDS: IPRATROPIUM BROMIDE 0.5 MG/2.5 ML NEBU NEB PRN ×3 (07:04→18:58)
[2018-09-15] MEDS: BUDESONIDE 0.25 MG/2 ML NEBU IH SCH ×2 (07:04→18:58)
[2018-09-15] MEDS: ALBUTEROL SULFATE 1.25 MG/3 ML NEBU NEB PRN ×3 (07:04→18:58)
[2018-09-15] MEDS: CARBIDOPA/LEVODOPA 25-100MG TABLET PO SCH ×2 (09:53→16:47)
[2018-09-15] MEDS: AMLODIPINE 5 MG TABLET PO SCH (09:57)
[2018-09-15] MEDS: MIRALAX 17 GM POWD.PACK PO SCH (09:58)
[2018-09-15] MEDS: CARVEDILOL 6.25 MG TABLET PO SCH ×2 (09:58→16:48)
[2018-09-15] MEDS: POLYVINYL ALCOHOL OPHT DROPS 15 ML BOTTLE EACHEYE SCH ×3 (09:59→16:48)
[2018-09-15] MEDS: ASPIRIN EC 81 MG TABLET.DR PO SCH (10:02)
[2018-09-15] MEDS: ENSURE ENLIVE (VAN) 240 ML LIQUID PO SCH ×3 (10:03→16:49)
--- NOTE | 2018-09-15 11:17 | NUR ---
Received patient awake in stable condition in bed. Continue aspiration precaution maintained. not in distress. Continue pain management with good effect. complaint of right shoulder pain. Applied warm compress on right shoulder with good effect. will continue monitor
[2018-09-15 16:03] VITALS: BP 134/59
--- NOTE | 2018-09-15 17:42 | NUR ---
Patient continue with therapy for ambulation, ADL and transfer activity.
--- NOTE | 2018-09-15 19:40 | NUR ---
PATIENT AWAKE ON BED, PLEASANT , ABLE TO VERBALIZE NEEDS. NO C/O OF PAIN OR DISCOMFORT . WILL CONTINUE TO MONITOR.
[2018-09-15 20:06] VITALS: BP 118/47
[2018-09-15] MEDS: ATORVASTATIN 10 MG TABLET PO SCH (21:14)
[2018-09-15] MEDS: DOCUSATE SODIUM 100 MG CAPSULE PO SCH (21:14)
[2018-09-15] MEDS: AMITRIPTYLINE HCL 10 MG TABLET PO SCH (21:14)
[2018-09-15] MEDS: TEMAZEPAM 30 MG CAPSULE PO PRN (23:37)
[2018-09-16 05:07] VITALS: BP 99/60
--- NOTE | 2018-09-16 06:46 | NUR ---
PATIENT INTERMITTENTLY SLEEPING. SLEEP MEDICINE ADMINISTERED ON PATIENT REQUEST.SLEPT FOR ABOUT 5 HRS . ASSISTED BRP ON REQUEST . WILL CONTINUE TO MONITOR. NO BM DURING THE SHIFT. ALL NEEDS WERE MET.
[2018-09-16] MEDS: ALBUTEROL SULFATE 1.25 MG/3 ML NEBU NEB PRN ×2 (07:14→15:25)
[2018-09-16] MEDS: BUDESONIDE 0.25 MG/2 ML NEBU IH SCH ×2 (07:14→19:48)
[2018-09-16] MEDS: IPRATROPIUM BROMIDE 0.5 MG/2.5 ML NEBU NEB PRN (07:14)
--- NOTE | 2018-09-16 08:00 | NUR ---
Patient noted being assisted to chair at this time, no complaints of pain, no signs of distress noted, call light in reach, bed locked and in the lowest position, all needs met at this time
[2018-09-16] MEDS: AMLODIPINE 5 MG TABLET PO SCH (09:25)
[2018-09-16] MEDS: ENSURE ENLIVE (VAN) 240 ML LIQUID PO SCH ×3 (09:25→17:51)
[2018-09-16] MEDS: CARBIDOPA/LEVODOPA 25-100MG TABLET PO SCH ×2 (09:25→17:50)
[2018-09-16] MEDS: MIRALAX 17 GM POWD.PACK PO SCH (09:25)
[2018-09-16] MEDS: CARVEDILOL 6.25 MG TABLET PO SCH ×2 (09:25→17:50)
[2018-09-16] MEDS: POLYVINYL ALCOHOL OPHT DROPS 15 ML BOTTLE EACHEYE SCH ×3 (09:26→17:50)
[2018-09-16 16:32] VITALS: BP 127/58
--- NOTE | 2018-09-16 19:45 | NUR ---
Received pt in bed, AAO x 4 watching television. No acute distress noted. Verbally responsive and able to communicate needs via nonverbal cues and communication board. C/O pain 4/10 pain scale on right shoulder. All safety measures and fall precautions maintained. Call light and all personal belongings within reach. Will continue to monitor.
[2018-09-16 20:00] VITALS: BP 118/56
[2018-09-16] MEDS: DOCUSATE SODIUM 100 MG CAPSULE PO SCH (20:45)
[2018-09-16] MEDS: ATORVASTATIN 10 MG TABLET PO SCH (20:45)
[2018-09-16] MEDS: AMITRIPTYLINE HCL 10 MG TABLET PO SCH (20:45)
[2018-09-16] MEDS: HYDROCODONE/APAP 5-325MG TABLET PO PRN (20:46)
[2018-09-16] MEDS: TEMAZEPAM 30 MG CAPSULE PO PRN (23:05)
[2018-09-17 05:00] VITALS: BP 116/58
[2018-09-17] MEDS: BUDESONIDE 0.25 MG/2 ML NEBU IH SCH ×2 (06:30→17:30)
[2018-09-17] MEDS: CARVEDILOL 6.25 MG TABLET PO SCH ×2 (08:41→17:59)
[2018-09-17] MEDS: ENSURE ENLIVE (VAN) 240 ML LIQUID PO SCH ×3 (08:41→17:59)
[2018-09-17] MEDS: MIRALAX 17 GM POWD.PACK PO SCH (08:41)
[2018-09-17] MEDS: AMLODIPINE 5 MG TABLET PO SCH (08:41)
[2018-09-17] MEDS: CARBIDOPA/LEVODOPA 25-100MG TABLET PO SCH ×2 (08:41→17:57)
[2018-09-17] MEDS: POLYVINYL ALCOHOL OPHT DROPS 15 ML BOTTLE EACHEYE SCH ×3 (08:42→17:57)
--- NOTE | 2018-09-17 11:41 | NUR ---
Patient noted being assisted to restroom, small blister noted on patients sacral area, patient refused to have picture of skin issue taken, patient refused to have Z-guard applied to skin issue, no complaints of pain, no signs of distress noted, call light in reach, bed locked and in the lowest position, all needs met at this time
[2018-09-17 16:00] VITALS: BP 133/67
[2018-09-17] MEDS ORDERED: INFLUENZA VACCINE 2018-2019 0.5 ML DISP.SYRIN IM ONE (17:00)
[2018-09-17] MEDS: ALBUTEROL SULFATE 1.25 MG/3 ML NEBU NEB PRN (17:30)
[2018-09-17 20:00] VITALS: BP 118/56
--- NOTE | 2018-09-17 20:30 | NUR ---
NSG: Received pt in bed,Alert and oriented x4 awake watching television. No acute distress noted. Verbally responsive and able to communicate needs via nonverbal cues and communication board. C/O pain 4/10 pain scale on right shoulder. All safety measures and fall precautions maintained. Call light w/in reach. Will continue to monitor.
[2018-09-17] MEDS: DOCUSATE SODIUM 100 MG CAPSULE PO SCH (20:39)
[2018-09-17] MEDS: ATORVASTATIN 10 MG TABLET PO SCH (20:39)
[2018-09-17] MEDS: AMITRIPTYLINE HCL 10 MG TABLET PO SCH (20:40)
[2018-09-17] MEDS: HYDROCODONE/APAP 5-325MG TABLET PO PRN (20:47)
[2018-09-18 04:00] VITALS: BP 144/63
--- NOTE | 2018-09-18 06:23 | NUR ---
NSG: Remain calm and cooperative with medications and care. Able to sleep through the night without sleeping medication, All needs attended and met. Nursing comfort measures and fall/safety precautions enforced at all times. no c/o pain or discomfort at this time.call light w/in reach.
[2018-09-18 06:49] LABS: BASOPHILS % (AUTO) 0.7 % (0.0-2.0); EOSINOPHILS # (AUTO) 0.2 K/uL (0.0-0.7); EOSINOPHILS % (AUTO) 3.5 % (0.0-7.0); HEMATOCRIT 37.9 % (36.7-47.1); HEMOGLOBIN 12.8 g/dL (12.5-16.3); LYMPHOCYTES # (AUTO) 1.9 K/uL (20.0-40.0); LYMPHOCYTES % (AUTO) 36.1 % (20.5-51.5); MEAN CORPUSCULAR HEMOGLOBIN 32.9 uug (23.8-33.4); MEAN CORPUSCULAR HGB CONC 34 g/dL (32.5-36.3); MEAN CORPUSCULAR VOLUME 97.5 fL (73.0-96.2); MONOCYTES # (AUTO) 0.5 K/uL (2.0-10.0); MONOCYTES % (AUTO) 9.1 % (0.0-11.0); NEUTROPHILS # (AUTO) 2.6 K/uL (1.8-8.9); NEUTROPHILS % (AUTO) 50.6 % (38.5-71.5); PLATELET COUNT (AUTO) 174 K/uL (152-348); RED BLOOD CELL COUNT(AUTO) 3.88 MIL/uL (4.06-5.63); WHITE BLOOD COUNT (AUTO) 5.2 K/uL (3.6-10.2)
[2018-09-18 07:07] LABS: CARBON DIOXIDE 37 mmol/L (21-32); CHLORIDE 104 mmol/L (98-107); GLUCOSE 90 mg/dL (74-106); PHOSPHOROUS 4.2 mg/dL (2.5-4.9); POTASSIUM 4.4 mmol/L (3.5-5.1); UREA NITROGEN, BLOOD 27 mg/dL (7-18)
[2018-09-18 07:10] VITALS: BP 143/59
--- NOTE | 2018-09-18 07:50 | NUR ---
Patient noted sitting up in chair at this time, bed side table in place, call light in reach, no complaints of pain at this time, no signs of distress, all needs known
[2018-09-18] MEDS: ASPIRIN EC 81 MG TABLET.DR PO SCH (09:00)
[2018-09-18] MEDS: CARBIDOPA/LEVODOPA 25-100MG TABLET PO SCH ×2 (09:06→18:26)
[2018-09-18] MEDS: ENSURE ENLIVE (VAN) 240 ML LIQUID PO SCH ×3 (09:07→18:26)
[2018-09-18] MEDS: CARVEDILOL 6.25 MG TABLET PO SCH ×2 (09:07→18:27)
[2018-09-18] MEDS: IPRATROPIUM BROMIDE 0.5 MG/2.5 ML NEBU NEB PRN (09:08)
[2018-09-18] MEDS: MIRALAX 17 GM POWD.PACK PO SCH (09:08)
[2018-09-18] MEDS: POLYVINYL ALCOHOL OPHT DROPS 15 ML BOTTLE EACHEYE SCH ×3 (09:08→18:27)
[2018-09-18] MEDS: ALBUTEROL SULFATE 1.25 MG/3 ML NEBU NEB PRN (09:08)
[2018-09-18] MEDS: BUDESONIDE 0.25 MG/2 ML NEBU IH SCH ×2 (09:09→18:54)
[2018-09-18] MEDS: AMLODIPINE 5 MG TABLET PO SCH (09:09)
--- NOTE | 2018-09-18 14:30 | NUR ---
Patient left for podiatry consult via wheelchair and private transport, paperwork for pass signed and placed in chart
[2018-09-18 21:06] VITALS: BP 124/71
[2018-09-18] MEDS: ATORVASTATIN 10 MG TABLET PO SCH (21:18)
[2018-09-18] MEDS: DOCUSATE SODIUM 100 MG CAPSULE PO SCH (21:18)
[2018-09-18] MEDS: AMITRIPTYLINE HCL 10 MG TABLET PO SCH (21:19)
[2018-09-18] MEDS: TEMAZEPAM 30 MG CAPSULE PO PRN (22:23)
[2018-09-19] MEDS: ALBUTEROL SULFATE 1.25 MG/3 ML NEBU NEB PRN (02:49)
[2018-09-19] MEDS: IPRATROPIUM BROMIDE 0.5 MG/2.5 ML NEBU NEB PRN (02:49)
[2018-09-19 05:16] VITALS: BP 131/80
[2018-09-19] MEDS: BUDESONIDE 0.25 MG/2 ML NEBU IH SCH (08:09)
[2018-09-19] MEDS: ENSURE ENLIVE (VAN) 240 ML LIQUID PO SCH ×2 (08:15→12:31)
[2018-09-19] MEDS: CARVEDILOL 6.25 MG TABLET PO SCH (08:15)
[2018-09-19] MEDS: AMLODIPINE 5 MG TABLET PO SCH (08:16)
[2018-09-19] MEDS: MIRALAX 17 GM POWD.PACK PO SCH (08:16)
[2018-09-19] MEDS: POLYVINYL ALCOHOL OPHT DROPS 15 ML BOTTLE EACHEYE SCH ×2 (08:16→12:31)
[2018-09-19] MEDS: CARBIDOPA/LEVODOPA 25-100MG TABLET PO SCH (08:17)
[2018-09-19 08:25] VITALS: BP 141/60
--- NOTE | 2018-09-19 09:28 | NUR ---
Received pt. sitting on w/c, Pt. A/OX4 with no acute distress noted. Verbally responsive and able to communicate needs via nonverbal cues and communication board. All safety measures and fall precautions maintained. Call light w/in reach. Will continue to monitor.
--- NOTE | 2018-09-19 10:30 | NUR ---
Obtain discharge order from Dr. Muse. Pt. to discharge to SNF[facility]. Orders noted and carried out. Pt. and made aware
--- NOTE | 2018-09-19 15:35 | NUR ---
Discharge Note: 1347 [facility] JOSE Mcrae and provided report to receiving staff, no further question for receiving RN. All of pt. belongings accountable for and returned back to spouse on-site, inventory form signed by spouse. Pt. will be discharging to [facility] for continued rehab and per family request. No changes in pt. mentation, remain A/OX3 and cooperative. Denies CP or SOB, no c/o pain tolerating RA at 95%. No new skin condition present, no pressure injury. RT ear laceration healing well with steri-strips. Discharge instruction discussed and explained to pt. and r/p, provided pt. teaching with education resources-exit care. Pt. and r/p verbalized full understanding of discharge instructions with no further concerns at this time, signed all of discharge document. List of active current medications provided and included in pt. packet. 1525 [employer] on-site for transportation, provided report to receiving staff with no further concerns. 1534 Pt. left via gurney in stable condition and discharge to SNF. Dr. Muse aware of pt. discharge.
== END 2018-09-19 15:35 | DRG 57 ==
PROVIDERS: ADMIT Physical Medicine & Rehabilitation Pain Medicine; ATTEND Physical Medicine & Rehabilitation Pain Medicine
DX: G20 Parkinson's disease (principal); D68.59 Other primary thrombophilia; J44.0 Chronic obstructive pulmonary disease with (acute) lower respiratory infection; G93.40 Encephalopathy, unspecified; R47.01 Aphasia; D53.9 Nutritional anemia, unspecified; E78.5 Hyperlipidemia, unspecified; G23.1 Progressive supranuclear ophthalmoplegia [Steele-Richardson-Olszewski]; I10 Essential (primary) hypertension; I25.10 Atherosclerotic heart disease of native coronary artery without angina pectoris; I25.2 Old myocardial infarction; M19.90 Unspecified osteoarthritis, unspecified site; K21.9 Gastro-esophageal reflux disease without esophagitis; M51.36 Other intervertebral disc degeneration, lumbar region; R29.6 Repeated falls; R13.10 Dysphagia, unspecified; R53.1 Weakness; Z86.73 Personal history of transient ischemic attack (TIA), and cerebral infarction without residual deficits; S70.00XD Contusion of unspecified hip, subsequent encounter; Z91.81 History of falling; Z95.5 Presence of coronary angioplasty implant and graft; Z96.653 Presence of artificial knee joint, bilateral; R47.1 Dysarthria and anarthria; K57.90 Diverticulosis of intestine, part unspecified, without perforation or abscess without bleeding; J20.8 Acute bronchitis due to other specified organisms; K40.90 Unilateral inguinal hernia, without obstruction or gangrene, not specified as recurrent; K43.9 Ventral hernia without obstruction or gangrene; S01.311D Laceration without foreign body of right ear, subsequent encounter; W19.XXXD Unspecified fall, subsequent encounter; Z90.79 Acquired absence of other genital organ(s); E66.3 Overweight; Z68.25 Body mass index [BMI] 25.0-25.9, adult; F41.9 Anxiety disorder, unspecified; M25.511 Pain in right shoulder; N35.919 Unspecified urethral stricture, male, unspecified site; R45.87 Impulsiveness
CPT/HCPCS: 36415; 83735; 84100; 85025; 90686; 92507; 92523; 92526; 92610; 94640; 94664; 97110; 97112; 97116; 97530; 97535; A4663; J3590

== ENCOUNTER 2018-12-10 21:20 | Emergency (ER) | payer MEDICARE, OTHER ==
[~2018-12-10] VITALS: Ht 172.7 cm; Wt 83.9 kg
[~2018-12-10 21:20] MED LIST changes: -ACET-73 PO; -ATOR40TA PO; -BUDE0.253 IH; -CARV20CP PO; -CEPH-570 PO; -IPRA12.9 IH
--- NOTE | 2018-12-10 21:34 | NUR ---
Pt. BIB [facility] 872 s/p fall from home, pt. is alert and oriented but difficult to verbally understand d/t hx of stroke approx. 1 year ago, placed on 2L 02, VSS, NAD,
--- NOTE | 2018-12-10 23:03 | NUR ---
Patient discharged to home in stable conditon. Written and verbal after care instructions given. Patient verbalizes understanding of instructions. Pt. d/c per MD orders, d/c papers signed, all belongings w/ pt., able to stand and walk w/ assistance, taken off unit in wheelchair, left in private vehicle w/ , NAD,
== END 2018-12-10 23:05 | disposition home or self-care (01) ==
LOC: ER 21:22
DX: S01.511A Laceration without foreign body of lip, initial encounter (principal); S00.83XA Contusion of other part of head, initial encounter; I10 Essential (primary) hypertension; I25.2 Old myocardial infarction; K21.9 Gastro-esophageal reflux disease without esophagitis; J44.9 Chronic obstructive pulmonary disease, unspecified; E78.5 Hyperlipidemia, unspecified; F17.200 Nicotine dependence, unspecified, uncomplicated; Z79.82 Long term (current) use of aspirin; Z79.899 Other long term (current) drug therapy; W18.39XA Other fall on same level, initial encounter; Y93.89 Activity, other specified; Y92.89 Other specified places as the place of occurrence of the external cause; Y99.8 Other external cause status
CPT/HCPCS: 70450; 72125; A4663

== ENCOUNTER 2019-03-11 15:09 | Inpatient (IN) | payer MEDICARE, OTHER ==
[~2019-03-11] VITALS: Ht 177.8 cm; Wt 86.2 kg
[2019-03-11] MEDS ORDERED: IPRATROPIUM BROMIDE 0.5 MG/2.5 ML NEBU ONE (15:26)
[2019-03-11] MEDS ORDERED: ALBUTEROL SULFATE 2.5 MG/ 0.5 ML NEBU ONE (15:26)
[2019-03-11] MEDS ORDERED: IPRATROPIUM BROMIDE 0.5 MG/2.5 ML NEBU NEB ONE (15:30)
[2019-03-11] MEDS ORDERED: ALBUTEROL SULFATE 2.5 MG/3 ML NEBU NEB ONE (15:30)
[2019-03-11 15:47] LABS: BASOPHILS # (AUTO) 0.1 K/uL (0.0-8.0); BASOPHILS % (AUTO) 0.9 % (0.0-2.0); EOSINOPHILS # (AUTO) 0.1 K/uL (0.0-0.7); EOSINOPHILS % (AUTO) 1.2 % (0.0-7.0); HEMATOCRIT 41.6 % (36.7-47.1); HEMOGLOBIN 13.7 g/dL (12.5-16.3); LYMPHOCYTES # (AUTO) 2.1 K/uL (20.0-40.0); LYMPHOCYTES % (AUTO) 28.8 % (20.5-51.5); MEAN CORPUSCULAR HEMOGLOBIN 31.6 uug (23.8-33.4); MEAN CORPUSCULAR HGB CONC 33 g/dL (32.5-36.3); MEAN CORPUSCULAR VOLUME 95.9 fL (73.0-96.2); MONOCYTES # (AUTO) 0.6 K/uL (2.0-10.0); MONOCYTES % (AUTO) 8.8 % (0.0-11.0); NEUTROPHILS # (AUTO) 4.3 K/uL (1.8-8.9); NEUTROPHILS % (AUTO) 60.3 % (38.5-71.5); PLATELET COUNT (AUTO) 173 K/uL (152-348); RED BLOOD CELL COUNT(AUTO) 4.34 MIL/uL (4.06-5.63); WHITE BLOOD COUNT (AUTO) 7.1 K/uL (3.6-10.2)
[2019-03-11 15:55] LABS: CARBON DIOXIDE 35 mmol/L (21-32); CHLORIDE 103 mmol/L (98-107); CREATININE 0.9 mg/dL (0.6-1.3); GLUCOSE 89 mg/dL (74-106); POTASSIUM 4.4 mmol/L (3.5-5.1); UREA NITROGEN, BLOOD 20 mg/dL (7-18)
[2019-03-11 16:06] LABS: ALANINE AMINOTRANSFERASE 18 U/L (16-63); ALKALINE PHOSPHATASE 93 U/L (50-136); ASPARTATE AMINOTRANSFERASE 11 U/L (15-37); BILIRUBIN,DIRECT 0.2 mg/dL (0.0-0.2); BILIRUBIN,TOTAL 0.5 mg/dL (0.2-1.0); TOTAL PROTEIN, SERUM 6.8 g/dL (6.4-8.2)
[2019-03-11] MEDS ORDERED: methylPREDNISolone SOD SUCC 125 MG/2 ML VIAL IV ONE (17:00)
[2019-03-11] MEDS ORDERED: methylPREDNISolone SOD SUCC 125 MG/2 ML VIAL ONE (17:21)
[2019-03-11] MEDS ORDERED: IPRA0.2S48 IH (17:42)
[2019-03-11] MEDS ORDERED: ALBU2.5V38 IH (17:42)
--- NOTE | 2019-03-11 17:59 | NUR ---
PT TRANSFERED TO FLOOR IN STABLE CONDITION. PT BREATHING AND O2 SAT IMPROVED AFTER THE BREATHINH TX. PT , RN , AT BEDSIDE THE WHOLE ER TIME. PT BREATING NORMALLY AND VSS. O2 SAT 98% VIA NC AT 2 LITRE.
--- NOTE | 2019-03-11 18:40 | NUR ---
STABLE CONDITION. PT BREATHING AND O2 SAT 99% ON NC. PT , RN , AT BEDSIDE THE WHOLE ER TIME. PT BREATING NORMALLY AND BP IS 150/67 INITIATE CARE PLAN
--- NOTE | 2019-03-11 19:34 | NUR ---
REPORT IS GIVEN TO JOSE LOPEZ AND ADMITION WILL BE CONT BY HER WITH ORDER ASS IS DONE AND PORTIAL ORDERS ARE DONE WELL NO DISTRESS AT THE MOMENT NC AT 3 AT 99%
[2019-03-11] MEDS ORDERED: ACETAMINOPHEN 325 MG TABLET PO PRN (20:00)
[2019-03-11] MEDS ORDERED: CALMOSEPTINE 113 GM OINTMENT TOP PRN (20:00)
[2019-03-11] MEDS ORDERED: ONDANSETRON 4 MG/2 ML VIAL IV PRN (20:00)
[2019-03-11] MEDS ORDERED: TEMAZEPAM 30 MG CAPSULE PO PRN (20:00)
--- NOTE | 2019-03-11 20:00 | NUR ---
Received patient awake, alert and oriented in bed. at bedside. Patient is nonverbal, garbles at times. Communicates via iphone and hand gestures. Patient is on 3L NC 99%. Weakness and edema noted on lower extremities. IV on right AC intact and patent. No SOB at this time. SR on the tele monitor. Tolerated medications with pudding. All needs met at this time. Safety measures implemented. Bed alarm on. Call light within reach. Will continue to monitor.
[2019-03-11 20:34] VITALS: BP 135/66
[2019-03-11] MEDS: DOCUSATE SODIUM 100 MG CAPSULE PO SCH (20:48)
[2019-03-11] MEDS: AMITRIPTYLINE HCL 10 MG TABLET PO SCH (20:49)
[2019-03-11] MEDS: HYDROCODONE/APAP 5-325MG TABLET PO PRN (20:58)
[2019-03-11] MEDS: methylPREDNISolone SOD SUCC 40 MG/ML VIAL IV SCH (21:04)
[2019-03-11] MEDS: IPRATROPIUM BROMIDE 0.5 MG/2.5 ML NEBU NEB PRN (21:18)
[2019-03-11] MEDS: ALBUTEROL SULFATE 2.5 MG/3 ML NEBU IH PRN (21:18)
[2019-03-11] MEDS ORDERED: LEVOFLOXACIN 500 MG/D5W 100 ML ONE (21:47)
[2019-03-11] MEDS: LEVOFLOXACIN 500 MG/D5W 500 MG in PREMIXED 1 EACH IV SCH (22:17)
[2019-03-12 00:41] VITALS: BP 132/62
[2019-03-12] MEDS ORDERED: TEMAZEPAM 15 MG CAPSULE ONE (00:57)
[2019-03-12] MEDS: HYDROCODONE/APAP 5-325MG TABLET PO PRN ×2 (02:43→21:10)
[2019-03-12] MEDS: IPRATROPIUM BROMIDE 0.5 MG/2.5 ML NEBU NEB PRN ×3 (03:17→13:57)
[2019-03-12] MEDS: ALBUTEROL SULFATE 2.5 MG/3 ML NEBU IH PRN ×3 (03:17→13:57)
[2019-03-12 04:00] VITALS: BP 130/72
--- NOTE | 2019-03-12 04:44 | NUR ---
PRN Restoril 30 mg PO given at 0142. Med administered did not save on eMAR. Restoril reassessment done at 0242. Patient was asleep and is currently asleep at this time. No distress/discomfort noted. Put Restoril was administered at this time for documentation.
[2019-03-12] MEDS: methylPREDNISolone SOD SUCC 40 MG/ML VIAL IV SCH (06:00)
[2019-03-12 06:37] LABS: BASOPHILS % (AUTO) 0.1 % (0.0-2.0); HEMATOCRIT 41.6 % (36.7-47.1); HEMOGLOBIN 13.7 g/dL (12.5-16.3); LYMPHOCYTES # (AUTO) 0.5 K/uL (20.0-40.0); LYMPHOCYTES % (AUTO) 9.7 % (20.5-51.5); MEAN CORPUSCULAR HEMOGLOBIN 31.6 uug (23.8-33.4); MEAN CORPUSCULAR HGB CONC 33 g/dL (32.5-36.3); MEAN CORPUSCULAR VOLUME 96.2 fL (73.0-96.2); MONOCYTES # (AUTO) 0.1 K/uL (2.0-10.0); MONOCYTES % (AUTO) 1.1 % (0.0-11.0); NEUTROPHILS # (AUTO) 4.3 K/uL (1.8-8.9); NEUTROPHILS % (AUTO) 89.1 % (38.5-71.5); PLATELET COUNT (AUTO) 170 K/uL (152-348); RED BLOOD CELL COUNT(AUTO) 4.32 MIL/uL (4.06-5.63); WHITE BLOOD COUNT (AUTO) 4.8 K/uL (3.6-10.2)
--- NOTE | 2019-03-12 06:37 | NUR ---
Patient slept through most of night. HOB elevated. No acute distress noted. No SOB. SR on tele monitor. Receiving 3L NC. O2 saturation 96%. Safety and comfort measures implemented and effective. All needs met. Call light within reach. Continue plan of care.
[2019-03-12 06:52] LABS: ALANINE AMINOTRANSFERASE 14 U/L (16-63); ALKALINE PHOSPHATASE 91 U/L (50-136); ASPARTATE AMINOTRANSFERASE 11 U/L (15-37); BILIRUBIN,TOTAL 0.4 mg/dL (0.2-1.0); CARBON DIOXIDE 30 mmol/L (21-32); CHLORIDE 100 mmol/L (98-107); CREATININE 1.1 mg/dL (0.6-1.3); GLUCOSE 202 mg/dL (74-106); PHOSPHOROUS 3.6 mg/dL (2.5-4.9); POTASSIUM 4.5 mmol/L (3.5-5.1); TOTAL PROTEIN, SERUM 6.6 g/dL (6.4-8.2); UREA NITROGEN, BLOOD 24 mg/dL (7-18)
[2019-03-12] MEDS ORDERED: TEMAZEPAM 15 MG CAPSULE PO PRN ×2 (07:30)
[2019-03-12] MEDS ORDERED: Medication Not On Formulary EA (Lactose-Reduced Food (Ensure Enlive) 237 ML) PO SCH (08:00)
[2019-03-12] MEDS: BUDESONIDE 0.25 MG/2 ML NEBU IH SCH ×2 (08:04→19:19)
[2019-03-12] MEDS: CARBIDOPA/LEVODOPA 25-100MG TABLET PO SCH ×2 (08:43→17:25)
[2019-03-12] MEDS: ACIDOPHILUS/BULGARICUS CHEW TAB PO SCH ×2 (08:43→17:25)
[2019-03-12] MEDS: CARVEDILOL 6.25 MG TABLET PO SCH ×2 (08:47→17:48)
[2019-03-12] MEDS: MIRALAX 17 GM POWD.PACK PO SCH (08:47)
[2019-03-12] MEDS: ENSURE WITH FIBER 237 ML LIQUID (CHOCOLATE) PO SCH ×3 (08:47→18:00)
[2019-03-12] MEDS: AMLODIPINE 5 MG TABLET PO SCH (08:47)
[2019-03-12] MEDS: POLYVINYL ALCOHOL OPHT DROPS 15 ML BOTTLE EACHEYE SCH ×3 (08:48→17:25)
[2019-03-12] MEDS ORDERED: POVIDONE OP SCH (09:00)
[2019-03-12] MEDS ORDERED: [UNRECOGNIZED DRUG - OTHER] PO SCH (09:00)
[2019-03-12] MEDS ORDERED: POLYVINYL ALCOHOL OP SCH (09:00)
[2019-03-12] MEDS ORDERED: P EPHED HCL PO SCH (09:00)
[2019-03-12] MEDS ORDERED: Z GUARD REMEDY PASTE 57 GM TUBE TOP PRN (09:30)
[2019-03-12] MEDS: ASPIRIN EC 81 MG TABLET.DR PO SCH ×3 (10:00→11:20)
--- NOTE | 2019-03-12 11:21 | NUR ---
PATIENT IS NPO FOR NOW PER DR. LAU PATIENT SOUNDS VERY WET IN HIS UPPER AIRWAY
[2019-03-12 11:51] VITALS: BP 108/65
[2019-03-12] MEDS: CEFTRIAXONE 2 G in IV DEXTROSE 5% 100 ML IV SCH (12:37)
--- NOTE | 2019-03-12 14:12 | NUR ---
WOUND CARE CONSULT: PT PRESENTS WITH RASH AND INCONTINENCE ASSOCIATED SKIN DAMAGE TO LEFT INNER BUTTOCK, PRESENT ON ADMISSION. RECOMMENDATIONS MADE FOR SKIN CARE AND PROTECTION. DISCUSSED WITH NURSING STAFF. WILL SEE PRN. MAYO IN AGREEMENT WITH PLAN OF CARE. Addendum: 03/12/19 at 1412 by DILLON RODRIGUEZ RN Amended: Links added.
[2019-03-12 16:16] VITALS: BP 129/60
[2019-03-12] MEDS: CLOTRIMAZOLE 1% CREAM 30 GM TUBE TOP SCH (17:29)
--- NOTE | 2019-03-12 17:48 | NUR ---
HELP COREG BC BP WAS FLACTUATING AND GOING DOWN TO BELOW SBP 90
[2019-03-12] MEDS ORDERED: IV NS 1000 ML 1,000 ML IV ONE (18:30)
--- NOTE | 2019-03-12 19:35 | NUR ---
PATIENT IS AO3, AT BED SIDE, NO DISTRESS THIS SHIFT, BP WAS GOING LOW SBP AROUND 100S BEVERLEY ORDERED NS 100ML/HR WHICH WAS STARTED, ORAL CARE IS DONE, SUCTION AT BED SIDE, NEEDS MET, HOB ABOVE 35% AT MOST TIMES SAFETY MAINTAINED.
--- NOTE | 2019-03-12 20:00 | NUR ---
Received patient awake in bed. Discussed plan of care with . Verbalized understanding. Not s/s acute distress. HOB elevated. Receiving o2 3L via NC. No SOB noted. IV intact and patent. Safety and comfort measures implemented. All needs met. Call light within reach. Will continue to monitor.
[2019-03-12 20:32] VITALS: BP 124/63
[2019-03-12] MEDS: LEVOFLOXACIN 500 MG/D5W 500 MG in PREMIXED 1 EACH IV SCH (21:06)
[2019-03-12] MEDS: DOCUSATE SODIUM 100 MG CAPSULE PO SCH (21:10)
[2019-03-12] MEDS: AMITRIPTYLINE HCL 10 MG TABLET PO SCH (21:43)
[2019-03-12] MEDS: TEMAZEPAM 15 MG CAPSULE PO PRN (22:43)
[2019-03-13 00:27] VITALS: BP 120/63
[2019-03-13 04:00] VITALS: BP 115/69
[2019-03-13 06:29] LABS: BASOPHILS % (AUTO) 0.3 % (0.0-2.0); HEMATOCRIT 40.9 % (36.7-47.1); HEMOGLOBIN 13.4 g/dL (12.5-16.3); LYMPHOCYTES # (AUTO) 1.2 K/uL (20.0-40.0); LYMPHOCYTES % (AUTO) 12.6 % (20.5-51.5); MEAN CORPUSCULAR HEMOGLOBIN 31.6 uug (23.8-33.4); MEAN CORPUSCULAR HGB CONC 33 g/dL (32.5-36.3); MONOCYTES # (AUTO) 0.5 K/uL (2.0-10.0); NEUTROPHILS % (AUTO) 82.1 % (38.5-71.5); PLATELET COUNT (AUTO) 183 K/uL (152-348); RED BLOOD CELL COUNT(AUTO) 4.26 MIL/uL (4.06-5.63); WHITE BLOOD COUNT (AUTO) 9.7 K/uL (3.6-10.2)
--- NOTE | 2019-03-13 06:30 | NUR ---
PRN Restoril given. Patient slept throughout night. No distress noted. HOB elevated. Suctioned. Oral care done. Receiving o2 3L NC. Continue NPO and plan of care. All needs met. Call light within reach.
[2019-03-13 06:44] LABS: CARBON DIOXIDE 34 mmol/L (21-32); CHLORIDE 104 mmol/L (98-107); CREATININE 0.9 mg/dL (0.6-1.3); GLUCOSE 109 mg/dL (74-106); MAGNESIUM 2.1 mg/dL (1.8-2.4); PHOSPHOROUS 3.4 mg/dL (2.5-4.9); POTASSIUM 4.6 mmol/L (3.5-5.1); UREA NITROGEN, BLOOD 28 mg/dL (7-18)
[2019-03-13] MEDS: BUDESONIDE 0.25 MG/2 ML NEBU IH SCH ×2 (07:29→19:28)
[2019-03-13] MEDS: IPRATROPIUM BROMIDE 0.5 MG/2.5 ML NEBU NEB PRN ×2 (07:30→19:28)
[2019-03-13] MEDS: CARVEDILOL 6.25 MG TABLET PO SCH ×2 (08:00→18:00)
[2019-03-13] MEDS: ENSURE WITH FIBER 237 ML LIQUID (CHOCOLATE) PO SCH ×3 (08:00→18:48)
[2019-03-13] MEDS: AMLODIPINE 5 MG TABLET PO SCH (08:39)
[2019-03-13] MEDS: CARBIDOPA/LEVODOPA 25-100MG TABLET PO SCH ×2 (08:39→16:46)
[2019-03-13] MEDS: ACIDOPHILUS/BULGARICUS CHEW TAB PO SCH ×2 (08:39→16:45)
[2019-03-13] MEDS: POLYVINYL ALCOHOL OPHT DROPS 15 ML BOTTLE EACHEYE SCH ×3 (08:41→16:44)
[2019-03-13] MEDS: MIRALAX 17 GM POWD.PACK PO SCH (08:41)
[2019-03-13] MEDS: CLOTRIMAZOLE 1% CREAM 30 GM TUBE TOP SCH ×2 (09:36→16:46)
--- NOTE | 2019-03-13 09:38 | NUR ---
PATIENT IS AO3, SITTER AT BED SIDE, NO DISTRESS, SUCTION AT BED SIDE, HOB ABOVE 35% , COREG HELD AT 0900 PATIENT IS RUNNING ON MONITOR S-INGE AT TIMES AND HR IS 59 LATEST, MIRALAX WAS HELD PATIENT IS ON ASPIRATION PREC. AND STRICT NPO BUT IMPORTANT MEDS. PATIENT MOUTH SUCTIONED SAFETY REINFORCED
[2019-03-13] MEDS: IV NS 1000 ML 1,000 ML IV PRN ×2 (10:40→23:57)
[2019-03-13 12:00] VITALS: BP 132/59
[2019-03-13] MEDS: CEFTRIAXONE 2 G in IV DEXTROSE 5% 100 ML IV SCH (12:55)
[2019-03-13] MEDS: ALBUTEROL SULFATE 2.5 MG/3 ML NEBU IH PRN (14:21)
[2019-03-13 15:09] VITALS: BP 143/68
[2019-03-13] MEDS: HYDROCODONE/APAP 5-325MG TABLET PO PRN (16:46)
--- NOTE | 2019-03-13 19:15 | NUR ---
Awake with HOB elevated, RT at bedside, suctioning patient orally with small amount of whitish secretion. Not in distress. Safety measure and fall precaution maintained. Continue care as planned.
[2019-03-13 19:34] VITALS: BP 99/75
[2019-03-13] MEDS: LEVOFLOXACIN 500 MG/D5W 500 MG in PREMIXED 1 EACH IV SCH (20:29)
[2019-03-13] MEDS: DOCUSATE SODIUM 100 MG CAPSULE PO SCH (20:30)
[2019-03-13] MEDS: AMITRIPTYLINE HCL 10 MG TABLET PO SCH (20:34)
[2019-03-13] MEDS: TEMAZEPAM 15 MG CAPSULE PO PRN (22:26)
[2019-03-13 23:23] VITALS: BP 139/70
[2019-03-14] MEDS: HYDROCODONE/APAP 5-325MG TABLET PO PRN (00:20)
--- NOTE | 2019-03-14 00:20 | NUR ---
Medicated for pain as needed and ordered. Will monitor.
[2019-03-14] MEDS: IPRATROPIUM BROMIDE 0.5 MG/2.5 ML NEBU NEB PRN ×2 (01:24→13:33)
[2019-03-14] MEDS: ALBUTEROL SULFATE 2.5 MG/3 ML NEBU IH PRN ×2 (01:24→13:33)
[2019-03-14 03:31] VITALS: BP 156/80
[2019-03-14 06:47] LABS: *BILIRUBIN,URIN NEGATIVE (NEGATIVE); *BLOOD, URINE NEGATIVE (NEGATIVE); *CLARITY,URINE CLEAR (CLEAR); *COLOR,URINE YELLOW (YELLOW); *KETONES,URINE NEGATIVE (NEGATIVE); *UROBILINOGEN,URINE 0.2 E.U./dl (NORMAL); LEUKOCYTE ESTERASE ,URINE NEGATIVE (NEGATIVE); NITRITE, URINE NEGATIVE (NEGATIVE); UGLUCOSE NEGATIVE (NEGATIVE)
[2019-03-14 07:23] LABS: BACTERIA,URINE FEW /HPF (NONE SEEN); RBC,URINE NONE SEEN /HPF (0-3); SQUAMOUS EPITHELIAL CELL,UR FEW /HPF (NONE SEEN); WBC,URINE 0-3 /HPF (0-3); YEAST,URINE BUDDING YEAST /HPF (NONE SEEN)
[2019-03-14] MEDS: BUDESONIDE 0.25 MG/2 ML NEBU IH SCH ×2 (07:23→19:17)
[2019-03-14 08:00] VITALS: BP 155/86
[2019-03-14 08:08] LABS: BASOPHILS % (AUTO) 0.3 % (0.0-2.0); EOSINOPHILS # (AUTO) 0.1 K/uL (0.0-0.7); HEMATOCRIT 42.3 % (36.7-47.1); LYMPHOCYTES # (AUTO) 0.7 K/uL (20.0-40.0); LYMPHOCYTES % (AUTO) 11.2 % (20.5-51.5); MEAN CORPUSCULAR HEMOGLOBIN 31.9 uug (23.8-33.4); MEAN CORPUSCULAR HGB CONC 33 g/dL (32.5-36.3); MEAN CORPUSCULAR VOLUME 96.2 fL (73.0-96.2); MONOCYTES # (AUTO) 0.6 K/uL (2.0-10.0); MONOCYTES % (AUTO) 9.9 % (0.0-11.0); NEUTROPHILS # (AUTO) 4.6 K/uL (1.8-8.9); NEUTROPHILS % (AUTO) 77.6 % (38.5-71.5); PLATELET COUNT (AUTO) 172 K/uL (152-348); RED BLOOD CELL COUNT(AUTO) 4.39 MIL/uL (4.06-5.63)
[2019-03-14 08:16] LABS: CARBON DIOXIDE 34 mmol/L (21-32); CHLORIDE 101 mmol/L (98-107); CREATININE 0.8 mg/dL (0.6-1.3); GLUCOSE 74 mg/dL (74-106); MAGNESIUM 1.5 mg/dL (1.8-2.4); PHOSPHOROUS 2.4 mg/dL (2.5-4.9); POTASSIUM 4.2 mmol/L (3.5-5.1); UREA NITROGEN, BLOOD 17 mg/dL (7-18)
[2019-03-14] MEDS: MIRALAX 17 GM POWD.PACK PO SCH (08:54)
[2019-03-14] MEDS: ACIDOPHILUS/BULGARICUS CHEW TAB PO SCH ×2 (08:55→17:19)
[2019-03-14] MEDS: CARBIDOPA/LEVODOPA 25-100MG TABLET PO SCH ×2 (08:55→17:25)
[2019-03-14] MEDS: CLOTRIMAZOLE 1% CREAM 30 GM TUBE TOP SCH ×2 (08:57→17:26)
[2019-03-14] MEDS: POLYVINYL ALCOHOL OPHT DROPS 15 ML BOTTLE EACHEYE SCH ×3 (08:57→17:25)
[2019-03-14] MEDS: ENSURE WITH FIBER 237 ML LIQUID (CHOCOLATE) PO SCH ×3 (08:58→18:00)
[2019-03-14] MEDS: CARVEDILOL 6.25 MG TABLET PO SCH ×2 (08:59→17:24)
[2019-03-14] MEDS: AMLODIPINE 5 MG TABLET PO SCH (09:07)
[2019-03-14 11:00] VITALS: BP 129/77
--- NOTE | 2019-03-14 11:00 | NUR ---
Patient had PT and ambulated 10 feet with the walker, than to chair. He did have shortness of breath during ambulation, and unable to walk further. Gave complete bath while in chair, and complete linen change. Anderson Sanches RN
[2019-03-14] MEDS ORDERED: MAGNESIUM SULFATE/D5W 100 ML IV SCH (12:00)
--- NOTE | 2019-03-14 12:20 | NUR ---
Vanessa LEONE infectious disease visits patient, updated on present condition. Anderson Sanches RN
[2019-03-14] MEDS ORDERED: NEUTRA PHOS PACKET PO ONE (15:45)
[2019-03-14 16:00] VITALS: BP 116/59
--- NOTE | 2019-03-14 19:20 | NUR ---
Received patient lying in bed. Asleep but arouse to verbal stimuli. AOx3-4. In no acute distress. On O2 at 3LPM via NC in place. O2 sat at 94%. IV site on right FA intact and patent. IVF infusing. NSR on tele at 84/min. Safety measure initiated and call good within reach.
[2019-03-14] MEDS: LEVOFLOXACIN 500 MG/D5W 500 MG in PREMIXED 1 EACH IV SCH (21:16)
[2019-03-14] MEDS: AMITRIPTYLINE HCL 10 MG TABLET PO SCH (21:17)
[2019-03-14] MEDS: DOCUSATE SODIUM 100 MG CAPSULE PO SCH (21:17)
[2019-03-14 21:28] VITALS: BP 103/49
[2019-03-15 00:10] VITALS: BP 111/55
[2019-03-15] MEDS: IPRATROPIUM BROMIDE 0.5 MG/2.5 ML NEBU NEB PRN ×3 (01:18→13:20)
[2019-03-15] MEDS: ALBUTEROL SULFATE 2.5 MG/3 ML NEBU IH PRN ×3 (01:18→13:20)
[2019-03-15] MEDS: IV NS 1000 ML 1,000 ML IV PRN (03:25)
[2019-03-15 05:44] VITALS: BP 129/61
--- NOTE | 2019-03-15 06:42 | NUR ---
AOx3-4. Slept well last night. In no acute distress. On O2 at 3LPM via NC in place. O2 sat at 98%. No signs or symptoms of pain or SOB noted. IV site on right FA intact and patent. IVF infusing. NSR on tele at 68/min. Safety measure maintained and call good within reach.
[2019-03-15 07:32] LABS: BASOPHILS % (AUTO) 0.3 % (0.0-2.0); EOSINOPHILS # (AUTO) 0.1 K/uL (0.0-0.7); EOSINOPHILS % (AUTO) 1.6 % (0.0-7.0); HEMATOCRIT 38.2 % (36.7-47.1); HEMOGLOBIN 12.5 g/dL (12.5-16.3); LYMPHOCYTES # (AUTO) 1.1 K/uL (20.0-40.0); LYMPHOCYTES % (AUTO) 33.2 % (20.5-51.5); MEAN CORPUSCULAR HEMOGLOBIN 31.7 uug (23.8-33.4); MEAN CORPUSCULAR HGB CONC 33 g/dL (32.5-36.3); MEAN CORPUSCULAR VOLUME 96.5 fL (73.0-96.2); MONOCYTES # (AUTO) 0.5 K/uL (2.0-10.0); MONOCYTES % (AUTO) 14.1 % (0.0-11.0); NEUTROPHILS # (AUTO) 1.7 K/uL (1.8-8.9); NEUTROPHILS % (AUTO) 50.8 % (38.5-71.5); PLATELET COUNT (AUTO) 139 K/uL (152-348); RED BLOOD CELL COUNT(AUTO) 3.95 MIL/uL (4.06-5.63)
[2019-03-15 07:41] LABS: WHITE BLOOD COUNT (AUTO) 3.3 K/uL (3.6-10.2)
[2019-03-15] MEDS: BUDESONIDE 0.25 MG/2 ML NEBU IH SCH (07:54)
[2019-03-15 07:55] LABS: CARBON DIOXIDE 34 mmol/L (21-32); CHLORIDE 103 mmol/L (98-107); CREATININE 0.8 mg/dL (0.6-1.3); GLUCOSE 67 mg/dL (74-106); MAGNESIUM 1.9 mg/dL (1.8-2.4); PHOSPHOROUS 2.8 mg/dL (2.5-4.9); UREA NITROGEN, BLOOD 18 mg/dL (7-18)
[2019-03-15 08:00] VITALS: BP 157/74
[2019-03-15] MEDS: ENSURE WITH FIBER 237 ML LIQUID (CHOCOLATE) PO SCH ×2 (08:00→11:59)
[2019-03-15] MEDS: AMLODIPINE 5 MG TABLET PO SCH (08:57)
[2019-03-15] MEDS: CARBIDOPA/LEVODOPA 25-100MG TABLET PO SCH (08:57)
[2019-03-15 08:58] VITALS: BP 157/74
[2019-03-15] MEDS: MIRALAX 17 GM POWD.PACK PO SCH (08:58)
[2019-03-15] MEDS: ACIDOPHILUS/BULGARICUS CHEW TAB PO SCH (08:58)
[2019-03-15] MEDS: CARVEDILOL 6.25 MG TABLET PO SCH (08:58)
[2019-03-15] MEDS: POLYVINYL ALCOHOL OPHT DROPS 15 ML BOTTLE EACHEYE SCH ×2 (08:59→13:24)
[2019-03-15] MEDS: CLOTRIMAZOLE 1% CREAM 30 GM TUBE TOP SCH (09:11)
--- NOTE | 2019-03-15 14:30 | NUR ---
telephone report given to Yoseph Wolf.
[2019-03-15] MEDS ORDERED: TEMA15CA5 PO (15:45)
[2019-03-15] MEDS ORDERED: Lactose-Free Food/Fiber PO (15:45)
[2019-03-15] MEDS ORDERED: MENT71OI TOP (15:45)
[2019-03-15] MEDS ORDERED: POLY15DR27 EACHEYE (15:45)
[2019-03-15] MEDS ORDERED: ONDA4VIA23 IV (15:45)
[2019-03-15] MEDS ORDERED: CLOT30CR24 TOP (15:45)
--- NOTE | 2019-03-15 15:59 | NUR ---
At this time patient taken down via bed and left in room 108. R.N. at bedside. noc/of pain vitals stable. proper documentation endorse. a call will be made to informed that no official documentation for DNI and follow up needed with pt;s bahman Gill.
== END 2019-03-15 15:50 | DRG 177 ==
LOC: ER 15:09 → TELE3 18:00
PROVIDERS: ADMIT Internal Medicine; ATTEND Internal Medicine
DX: J69.0 Pneumonitis due to inhalation of food and vomit (principal); J96.01 Acute respiratory failure with hypoxia; E44.0 Moderate protein-calorie malnutrition; D61.818 Other pancytopenia; D68.59 Other primary thrombophilia; G23.1 Progressive supranuclear ophthalmoplegia [Steele-Richardson-Olszewski]; J44.0 Chronic obstructive pulmonary disease with (acute) lower respiratory infection; J44.1 Chronic obstructive pulmonary disease with (acute) exacerbation; G20 Parkinson's disease; R13.10 Dysphagia, unspecified; I25.10 Atherosclerotic heart disease of native coronary artery without angina pectoris; Z95.5 Presence of coronary angioplasty implant and graft; Z90.79 Acquired absence of other genital organ(s); Z87.891 Personal history of nicotine dependence; Z68.27 Body mass index [BMI] 27.0-27.9, adult; I25.2 Old myocardial infarction; M25.511 Pain in right shoulder; F02.80 Dementia in other diseases classified elsewhere, unspecified severity, without behavioral disturbance, psychotic disturbance, mood disturbance, and anxiety; E78.5 Hyperlipidemia, unspecified; I10 Essential (primary) hypertension; G89.29 Other chronic pain; I70.0 Atherosclerosis of aorta; M51.36 Other intervertebral disc degeneration, lumbar region; Z86.73 Personal history of transient ischemic attack (TIA), and cerebral infarction without residual deficits; N40.0 Benign prostatic hyperplasia without lower urinary tract symptoms; K57.90 Diverticulosis of intestine, part unspecified, without perforation or abscess without bleeding; Z96.653 Presence of artificial knee joint, bilateral; Z91.19 Patient's noncompliance with other medical treatment and regimen; Z98.42 Cataract extraction status, left eye; Z91.81 History of falling; Z98.41 Cataract extraction status, right eye; K21.9 Gastro-esophageal reflux disease without esophagitis; J20.9 Acute bronchitis, unspecified
CPT/HCPCS: 36415; 70030-TC; 71045; 83605; 83735; 84100; 85025; 85730; 87040; 87070; 87086; 87400; 92523; 92526; 93005; 94640; 94664; 97110; 97116; 97165; 97530; A4663; G0378; J0696; J1956; J2920; J2930; J3475; J3590; J7030; J7060

== ENCOUNTER 2019-03-15 16:29 | Inpatient (IN) | payer MEDICARE, OTHER ==
[~2019-03-15] VITALS: Ht 177.8 cm; Wt 86.2 kg
[2019-03-15 16:00] VITALS: BP 118/68
[~2019-03-15 16:29] MED LIST changes: +ALBU2.5V38 IH; +CLOT30CR24 TOP; +IPRA0.2S48 IH; +Lactose-Free Food/Fiber PO; +ONDA4VIA23 IV; +POLY15DR27 EACHEYE; +TEMA15CA5 PO
[2019-03-15] MEDS ORDERED: ONDANSETRON 4 MG/2 ML VIAL IV PRN (19:00)
[2019-03-15] MEDS ORDERED: ACETAMINOPHEN 325 MG TABLET PO PRN (19:00)
[2019-03-15] MEDS ORDERED: ALBUTEROL SULFATE 2.5 MG/ 0.5 ML NEBU IH PRN (19:00)
[2019-03-15] MEDS ORDERED: IPRATROPIUM BROMIDE 0.5 MG/2.5 ML NEBU IH PRN (19:00)
--- NOTE | 2019-03-15 19:45 | NUR ---
SBAR RECEIVED FROM DAY SHIFT NURSE. PATIENT ALERT AND ORIENTED X 3-4. PATIENT UNABLE TO VERBALIZE NEEDS, BUT IS ABLE TO USE COMMUNICATION BOARD TO IDENTIFY NEEDS. C/O PAIN UPON ASSESSMENT. WILL MEDICATE. NO C/O SOB OR DISTRESS. PATIENT NPO EXCEPT MEDS. URINARY FREQUENCY IDENTIFIED. UA ORDER MADE. WILL COLLECT. SIDE RAILS UP BILATERALLY FOR SAFETY. CALL LIGHT AND FREQUENTLY USED ITEMS WITH IN REACH. WILL CONTINUE TO MONITOR.
[2019-03-15 20:28] VITALS: BP 140/72
[2019-03-15] MEDS: ALBUTEROL SULFATE 2.5 MG/3 ML NEBU IH PRN (20:42)
[2019-03-15] MEDS: IPRATROPIUM BROMIDE 0.5 MG/2.5 ML NEBU NEB PRN (20:42)
[2019-03-15] MEDS: BUDESONIDE 0.25 MG/2 ML NEBU IH SCH (20:50)
[2019-03-15] MEDS: AMITRIPTYLINE HCL 10 MG TABLET PO SCH (21:11)
[2019-03-15] MEDS: DOCUSATE SODIUM 100 MG CAPSULE PO SCH (21:11)
[2019-03-15] MEDS: HYDROCODONE/APAP 5-325MG TABLET PO PRN (21:33)
[2019-03-15 21:44] LABS: *BILIRUBIN,URIN NEGATIVE (NEGATIVE); *CLARITY,URINE CLEAR (CLEAR); *COLOR,URINE YELLOW (YELLOW); *KETONES,URINE 2+ (NEGATIVE); *UROBILINOGEN,URINE 0.2 E.U./dl (NORMAL); LEUKOCYTE ESTERASE ,URINE NEGATIVE (NEGATIVE); NITRITE, URINE NEGATIVE (NEGATIVE); PH,URINE 5.5 (5.0-8.0); UGLUCOSE NEGATIVE (NEGATIVE)
[2019-03-15 21:52] LABS: *BLOOD, URINE TRACE (NEGATIVE); SQUAMOUS EPITHELIAL CELL,UR FEW /HPF (NONE SEEN)
[2019-03-15] MEDS: TEMAZEPAM 15 MG CAPSULE PO PRN (23:16)
[2019-03-16] MEDS: IPRATROPIUM BROMIDE 0.5 MG/2.5 ML NEBU NEB PRN ×4 (01:56→18:54)
[2019-03-16] MEDS: ALBUTEROL SULFATE 2.5 MG/3 ML NEBU IH PRN ×4 (01:56→18:53)
[2019-03-16 05:52] VITALS: BP 154/71
--- NOTE | 2019-03-16 06:45 | NUR ---
PATIENT SLEPT ON AND OFF DURING THE NIGHT. REQUEST URINAL SEVERAL TIMES DURING SHIFT. ALL DUE MEDICATIONS GIVEN-TOLERATED WELL. MEPILEX MAINTAINED ON SCROTUM FOR EXCORIATION. SIDE RAILS UP BILATERALLY FOR SAFETY. CALL LIGTH AND FREQUENTLY USED TIMES WITHIN REACH. WILL ENDORSE TO ONCOMING SHIFT ACCORDINGLY.
[2019-03-16] MEDS: BUDESONIDE 0.25 MG/2 ML NEBU IH SCH ×2 (06:58→18:55)
[2019-03-16 08:00] VITALS: BP 143/77
[2019-03-16] MEDS ORDERED: Medication Not On Formulary EA (Lactose-Reduced Food (Ensure Enlive) 237 ML) PO SCH (08:00)
[2019-03-16] MEDS: ENSURE WITH FIBER 237 ML LIQUID (CHOCOLATE) PO SCH ×3 (08:00→17:00)
[2019-03-16] MEDS: ACIDOPHILUS/BULGARICUS CHEW TAB PO SCH ×2 (08:29→17:48)
[2019-03-16] MEDS: CARBIDOPA/LEVODOPA 25-100MG TABLET PO SCH ×2 (08:29→17:48)
[2019-03-16] MEDS: AMLODIPINE 5 MG TABLET PO SCH (08:30)
[2019-03-16] MEDS: ASPIRIN EC 81 MG TABLET.DR PO SCH (08:30)
[2019-03-16] MEDS: CARVEDILOL 6.25 MG TABLET PO SCH ×2 (08:30→17:59)
[2019-03-16] MEDS: MIRALAX 17 GM POWD.PACK PO SCH (08:31)
[2019-03-16] MEDS: POLYVINYL ALCOHOL OPHT DROPS 15 ML BOTTLE EACHEYE SCH ×3 (08:31→17:49)
[2019-03-16] MEDS: CLOTRIMAZOLE 1% CREAM 30 GM TUBE TOP SCH ×2 (08:31→17:46)
[2019-03-16] MEDS ORDERED: POVIDONE OP SCH (09:00)
[2019-03-16] MEDS ORDERED: POLYVINYL ALCOHOL OP SCH (09:00)
[2019-03-16] MEDS: IV D5/ 0.9% NACL 1,000 ML IV PRN (13:54)
[2019-03-16 15:47] VITALS: BP 120/50
--- NOTE | 2019-03-16 19:30 | NUR ---
PATIENT ALERT AND ORIENTED X 3. PATIENT UNABLE TO VERBALIZE WANTS, BUT IS ABLE TO USE COMMUNICATION BOARD TO IDENTIFY NEEDS. C/O PAIN UPON ASSESSMENT. WILL MEDICATE. NO C/O SOB OR DISTRESS. PATIENT NPO EXCEPT MEDS. D5NS RUNNING AT 75ML/HR IN RIGHT FOREARM. SIDE RAILS UP BILATERALLY FOR SAFETY. CALL LIGHT AND FREQUENTLY USED ITEMS WITH IN REACH. WILL CONTINUE TO MONITOR.
[2019-03-16] MEDS: DOCUSATE SODIUM 100 MG CAPSULE PO SCH (20:46)
[2019-03-16] MEDS: AMITRIPTYLINE HCL 10 MG TABLET PO SCH (20:46)
[2019-03-16 20:47] VITALS: BP 132/55
[2019-03-16] MEDS: HYDROCODONE/APAP 5-325MG TABLET PO PRN (20:52)
[2019-03-16] MEDS: TEMAZEPAM 15 MG CAPSULE PO PRN (22:35)
[2019-03-17] MEDS: IV D5/ 0.9% NACL 1,000 ML IV PRN ×2 (03:35→18:59)
[2019-03-17 04:30] VITALS: BP 110/51
--- NOTE | 2019-03-17 06:48 | NUR ---
PATIENT SLEPT WELL DURING THE NIGHT. ALL DUE MEDICATIONS GIVEN-TOLERATED WELL. MEPILEX MAINTAINED ON SCROTUM FOR EXCORIATION. SIDE RAILS UP BILATERALLY FOR SAFETY. CALL LIGHT AND FREQUENTLY USED TIMES WITHIN REACH. WILL ENDORSE TO ONCOMING SHIFT ACCORDINGLY.
[2019-03-17 07:35] VITALS: BP 146/64
[2019-03-17] MEDS: ENSURE WITH FIBER 237 ML LIQUID (CHOCOLATE) PO SCH ×3 (08:00→16:27)
[2019-03-17] MEDS: IPRATROPIUM BROMIDE 0.5 MG/2.5 ML NEBU NEB PRN ×2 (08:12→18:54)
[2019-03-17] MEDS: BUDESONIDE 0.25 MG/2 ML NEBU IH SCH ×2 (08:12→18:54)
[2019-03-17] MEDS: ALBUTEROL SULFATE 2.5 MG/3 ML NEBU IH PRN ×2 (08:12→18:54)
[2019-03-17] MEDS: CARVEDILOL 6.25 MG TABLET PO SCH ×2 (08:59→17:10)
[2019-03-17] MEDS: ACIDOPHILUS/BULGARICUS CHEW TAB PO SCH ×2 (09:31→16:27)
[2019-03-17] MEDS: POLYVINYL ALCOHOL OPHT DROPS 15 ML BOTTLE EACHEYE SCH ×3 (09:31→16:27)
[2019-03-17] MEDS: AMLODIPINE 5 MG TABLET PO SCH (09:32)
[2019-03-17] MEDS: CARBIDOPA/LEVODOPA 25-100MG TABLET PO SCH ×2 (09:32→16:27)
[2019-03-17] MEDS: MIRALAX 17 GM POWD.PACK PO SCH (09:32)
[2019-03-17] MEDS: CLOTRIMAZOLE 1% CREAM 30 GM TUBE TOP SCH ×2 (09:33→16:27)
--- NOTE | 2019-03-17 10:56 | NUR ---
Received pt. on bed, comfortable in no distress. A/Ox3 verbally responsive and able to make his needs known through communication board. Denies CP or SOB, on 3 LPM via NC. All due medications administered as ordered and tolerated well. Skin care rendered. All pt. needs attended and met promptly. Safety measures in place. Call light and all frequently used items within pt. reach.
[2019-03-17 16:30] VITALS: BP 108/51
--- NOTE | 2019-03-17 18:20 | NUR ---
End of shift note: No significant change during this shift. No sign of acute distress or SOB was noted. Kept pt clean and dry throughout this shift. Safety measures maintained. All needs attended and met promptly. Bed in low position, brake on, side rails up x2 as an enabler. Call light and all frequently used items within pt. reach. Will endorse to next shift accordingly
[2019-03-17 21:09] VITALS: BP 135/55
[2019-03-17] MEDS: DOCUSATE SODIUM 100 MG CAPSULE PO SCH (21:52)
[2019-03-17] MEDS: AMITRIPTYLINE HCL 10 MG TABLET PO SCH (21:52)
[2019-03-17] MEDS: HYDROCODONE/APAP 5-325MG TABLET PO PRN (21:57)
--- NOTE | 2019-03-18 00:16 | NUR ---
Received pt in bed and watching tv. AAO x3. No acute distress noted. On 3L O2 via NC, tolerating well. C/o 5/10 pain on the right shoulder, [place] PRN and other due meds given as ordered. Aspiration precaution implemented. NPO except meds. IV on right forearm 20 gauge, running D5 NS at 75cc/hr. Safety measures maintained. Call light and personal belongings within reach. Will continue to monitor.
[2019-03-18] MEDS: IPRATROPIUM BROMIDE 0.5 MG/2.5 ML NEBU NEB PRN ×3 (00:38→14:20)
[2019-03-18] MEDS: ALBUTEROL SULFATE 2.5 MG/3 ML NEBU IH PRN ×4 (00:38→20:28)
[2019-03-18 05:26] VITALS: BP 125/53
[2019-03-18] MEDS: BUDESONIDE 0.25 MG/2 ML NEBU IH SCH ×2 (07:57→20:28)
[2019-03-18] MEDS: ENSURE WITH FIBER 237 ML LIQUID (CHOCOLATE) PO SCH ×2 (08:00→12:39)
[2019-03-18] MEDS: ACIDOPHILUS/BULGARICUS CHEW TAB PO SCH ×2 (08:51→17:24)
[2019-03-18] MEDS: CARVEDILOL 6.25 MG TABLET PO SCH ×2 (08:52→17:24)
[2019-03-18] MEDS: CARBIDOPA/LEVODOPA 25-100MG TABLET PO SCH ×2 (08:52→17:24)
[2019-03-18] MEDS: AMLODIPINE 5 MG TABLET PO SCH (08:52)
[2019-03-18] MEDS: POLYVINYL ALCOHOL OPHT DROPS 15 ML BOTTLE EACHEYE SCH ×3 (08:53→17:29)
[2019-03-18] MEDS: MIRALAX 17 GM POWD.PACK PO SCH (08:53)
[2019-03-18] MEDS: CLOTRIMAZOLE 1% CREAM 30 GM TUBE TOP SCH ×2 (08:53→17:24)
[2019-03-18] MEDS: IV D5/ 0.9% NACL 1,000 ML IV PRN (08:57)
[2019-03-18 09:30] VITALS: BP 134/57
--- NOTE | 2019-03-18 12:56 | NUR ---
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 RECOMMENDATIONS MADE FOR SKIN PROTECTION AND CARE. DISCUSSED WITH NURSING STAFF. WILL SEE PRN. MAYO IN AGREEMENT WITH PLAN OF CARE. Addendum: 03/18/19 at 1258 by DILLON RODRIGUEZ RN Amended: Links added.
[2019-03-18] MEDS ORDERED: Z GUARD REMEDY PASTE 57 GM TUBE TOP PRN (13:00)
[2019-03-18 17:30] VITALS: BP 167/77
--- NOTE | 2019-03-18 18:11 | NUR ---
End of shift note: No significant change during this shift. No sign of acute distress or SOB was noted. Kept pt clean and dry throughout this shift. Seen by ST today and upgraded diet to Puree with honey thickened liquid. Safety measures maintained. All needs attended and met promptly. Bed in low position, brake on, side rails up x2 as an enabler. Call light and all frequently used items within pt. reach. Will endorse to next shift accordingly
[2019-03-18 19:11] VITALS: BP 154/69
[2019-03-18 20:00] VITALS: BP 172/83
[2019-03-18] MEDS: AMITRIPTYLINE HCL 10 MG TABLET PO SCH (20:27)
[2019-03-18] MEDS: DOCUSATE SODIUM 100 MG CAPSULE PO SCH (20:27)
[2019-03-18] MEDS: Z GUARD REMEDY PASTE 57 GM TUBE TOP SCH (20:29)
[2019-03-18] MEDS: TEMAZEPAM 15 MG CAPSULE PO PRN (21:42)
[2019-03-18] MEDS: HYDROCODONE/APAP 5-325MG TABLET PO PRN (21:43)
[2019-03-19] MEDS: ALBUTEROL SULFATE 2.5 MG/3 ML NEBU IH PRN ×3 (01:08→19:03)
[2019-03-19] MEDS: IPRATROPIUM BROMIDE 0.5 MG/2.5 ML NEBU NEB PRN ×3 (01:09→19:03)
[2019-03-19 04:30] VITALS: BP 131/61
[2019-03-19 07:00] VITALS: BP 104/57
[2019-03-19] MEDS: BUDESONIDE 0.25 MG/2 ML NEBU IH SCH ×2 (07:07→19:03)
[2019-03-19 07:10] LABS: BASOPHILS % (AUTO) 0.3 % (0.0-2.0); EOSINOPHILS # (AUTO) 0.1 K/uL (0.0-0.7); EOSINOPHILS % (AUTO) 1.8 % (0.0-7.0); HEMATOCRIT 35.8 % (36.7-47.1); HEMOGLOBIN 11.9 g/dL (12.5-16.3); LYMPHOCYTES # (AUTO) 1.4 K/uL (20.0-40.0); LYMPHOCYTES % (AUTO) 29.5 % (20.5-51.5); MEAN CORPUSCULAR HEMOGLOBIN 31.8 uug (23.8-33.4); MEAN CORPUSCULAR HGB CONC 33 g/dL (32.5-36.3); MEAN CORPUSCULAR VOLUME 95.7 fL (73.0-96.2); MONOCYTES # (AUTO) 0.4 K/uL (2.0-10.0); MONOCYTES % (AUTO) 7.6 % (0.0-11.0); NEUTROPHILS % (AUTO) 60.8 % (38.5-71.5); PLATELET COUNT (AUTO) 131 K/uL (152-348); RED BLOOD CELL COUNT(AUTO) 3.74 MIL/uL (4.06-5.63); WHITE BLOOD COUNT (AUTO) 4.9 K/uL (3.6-10.2)
[2019-03-19 07:28] LABS: CARBON DIOXIDE 32 mmol/L (21-32); CHLORIDE 107 mmol/L (98-107); CREATININE 0.7 mg/dL (0.6-1.3); GLUCOSE 112 mg/dL (74-106); MAGNESIUM 1.7 mg/dL (1.8-2.4); PHOSPHOROUS 2.5 mg/dL (2.5-4.9); POTASSIUM 3.5 mmol/L (3.5-5.1); UREA NITROGEN, BLOOD 9 mg/dL (7-18)
[2019-03-19] MEDS: CARVEDILOL 6.25 MG TABLET PO SCH ×2 (08:00→18:05)
[2019-03-19] MEDS: POLYVINYL ALCOHOL OPHT DROPS 15 ML BOTTLE EACHEYE SCH ×3 (08:45→16:17)
[2019-03-19] MEDS: ACIDOPHILUS/BULGARICUS CHEW TAB PO SCH ×2 (08:45→16:15)
[2019-03-19] MEDS: ASPIRIN EC 81 MG TABLET.DR PO SCH (08:45)
[2019-03-19] MEDS: MIRALAX 17 GM POWD.PACK PO SCH (08:45)
[2019-03-19] MEDS: ENSURE WITH FIBER 237 ML LIQUID (CHOCOLATE) PO SCH ×3 (08:45→16:17)
[2019-03-19] MEDS: CARBIDOPA/LEVODOPA 25-100MG TABLET PO SCH ×2 (08:46→16:15)
[2019-03-19] MEDS: CLOTRIMAZOLE 1% CREAM 30 GM TUBE TOP SCH ×2 (08:46→16:16)
[2019-03-19] MEDS: AMLODIPINE 5 MG TABLET PO SCH (08:46)
[2019-03-19] MEDS: Z GUARD REMEDY PASTE 57 GM TUBE TOP SCH ×2 (08:47→20:42)
--- NOTE | 2019-03-19 09:07 | NUR ---
Received pt. on bed, comfortable in no distress. A/Ox3 verbally responsive and able to make his needs known through communication board. Denies CP or SOB, on 3 LPM via NC. All due medications administered as ordered and tolerated well. PVT caregiver by bedside. Skin care rendered. All pt. needs attended and met promptly. Safety measures in place. Call light and all frequently used items within pt. reach.
--- NOTE | 2019-03-19 11:00 | NUR ---
RFA PIV leaking during routine flush. D/C, pt. tolerated procedure well. No active bleeding at access site.
[2019-03-19] MEDS ORDERED: MAGNESIUM OXIDE 400 MG TABLET PO ONE (14:00)
[2019-03-19 15:58] VITALS: BP 120/64
[2019-03-19] MEDS: IV D5/ 0.9% NACL 1,000 ML IV PRN (18:05)
--- NOTE | 2019-03-19 18:19 | NUR ---
End of shift note: No significant change during this shift. No sign of acute distress or SOB was noted. Kept pt clean and dry throughout this shift. Poor PO intake due to dysphagia. Started PIV on RW x1 attempt with good blood return, flushed with 5CC of 0.9% NS with no resistance met. Secured with tegaderm, pt. tolerated procedure well. Re-started D5NS @ 75cc/hr for poor po intake. Safety measures maintained. All needs attended and met promptly. Bed in low position, brake on, side rails up x2 as an enabler. Call light and all frequently used items within pt. reach. Will endorse to next shift accordingly
--- NOTE | 2019-03-19 19:35 | NUR ---
Alert and oriented x 2-3. Patient able to make needs known through communication board. No C/o SOB, pain, or distress on 3 LPM via NC. Skin care rendered. All pt. needs attended and met promptly. Safety measures in place. Call light and all frequently used items within patient reach. Will continue to monitor.
[2019-03-19 19:56] VITALS: BP 146/80
[2019-03-19] MEDS: AMITRIPTYLINE HCL 10 MG TABLET PO SCH (20:42)
[2019-03-19] MEDS: DOCUSATE SODIUM 100 MG CAPSULE PO SCH (20:43)
[2019-03-20] MEDS: IPRATROPIUM BROMIDE 0.5 MG/2.5 ML NEBU NEB PRN ×2 (02:09→07:07)
[2019-03-20] MEDS: ALBUTEROL SULFATE 2.5 MG/3 ML NEBU IH PRN ×2 (02:09→07:07)
[2019-03-20 05:00] VITALS: BP 157/61
[2019-03-20 05:40] VITALS: BP 157/61
--- NOTE | 2019-03-20 06:41 | NUR ---
Patient slept well during the night. IV running D5NS at 75 mL/HR in the left forearm. Sacral wound kept C/D/I. All due medications given-tolerated well. Side rails up bilaterally for safety. Call light and frequently used items within reach. Will endorse to oncoming shift accordingly.
[2019-03-20] MEDS: BUDESONIDE 0.25 MG/2 ML NEBU IH SCH ×2 (07:08→19:57)
[2019-03-20 07:43] VITALS: BP 145/56
[2019-03-20] MEDS: CARBIDOPA/LEVODOPA 25-100MG TABLET PO SCH ×2 (08:15→16:38)
[2019-03-20] MEDS: AMLODIPINE 5 MG TABLET PO SCH (08:15)
[2019-03-20] MEDS: ACIDOPHILUS/BULGARICUS CHEW TAB PO SCH ×2 (08:15→16:38)
[2019-03-20] MEDS: CARVEDILOL 6.25 MG TABLET PO SCH ×2 (08:16→17:29)
[2019-03-20] MEDS: ENSURE WITH FIBER 237 ML LIQUID (CHOCOLATE) PO SCH ×3 (08:16→16:37)
[2019-03-20] MEDS: POLYVINYL ALCOHOL OPHT DROPS 15 ML BOTTLE EACHEYE SCH ×3 (08:17→16:36)
[2019-03-20] MEDS: MIRALAX 17 GM POWD.PACK PO SCH (08:19)
[2019-03-20] MEDS: Z GUARD REMEDY PASTE 57 GM TUBE TOP SCH ×2 (08:20→20:24)
[2019-03-20] MEDS: CLOTRIMAZOLE 1% CREAM 30 GM TUBE TOP SCH ×2 (08:20→16:37)
--- NOTE | 2019-03-20 11:24 | NUR ---
Patient continue therapy for ambulation, ADL, muscle weakness and transfer ability. Continue on aspiration precaution. Speech therapy advise NPO except medicine. refuse, caregiver brought strawberry shake as patient request. aware. Speech therapy aware. shake given with thickener. tolerated well. will continue monitor
[2019-03-20] MEDS: IV D5/ 0.9% NACL 1,000 ML IV PRN (12:20)
--- NOTE | 2019-03-20 14:03 | NUR ---
Patient complaint of left ankle pain,refuse therapy, convinced patient with good effect. MD Lu aware. ordered left ankle x-ray.
[2019-03-20 16:25] VITALS: BP 142/55
--- NOTE | 2019-03-20 19:35 | NUR ---
Alert and oriented x 2-3. Patient able to make needs known through communication board. No C/O SOB, pain, or distress on 3 LPM via NC. All pt. needs attended to and met promptly. Safety measures in place. Call light and all frequently used items within patient reach. Will continue to monitor.
[2019-03-20 20:22] VITALS: BP 141/58
[2019-03-20] MEDS: AMITRIPTYLINE HCL 10 MG TABLET PO SCH (20:24)
[2019-03-20] MEDS: DOCUSATE SODIUM 100 MG CAPSULE PO SCH (20:24)
[2019-03-20] MEDS: TEMAZEPAM 15 MG CAPSULE PO PRN (23:45)
[2019-03-21] MEDS: IV D5/ 0.9% NACL 1,000 ML IV PRN (03:58)
[2019-03-21 05:51] VITALS: BP 146/69
--- NOTE | 2019-03-21 06:33 | NUR ---
Patient stable during the night. Slept well. IV running D5NS at 75 mL/HR in the left forearm. Sacral wound kept C/D/I. Dressing changed per orders. All due medications given-tolerated well. Side rails up bilaterally for safety. Call light and frequently used items within reach. Will endorse to oncoming shift accordingly.
[2019-03-21 07:46] VITALS: BP 121/73
[2019-03-21] MEDS: BUDESONIDE 0.25 MG/2 ML NEBU IH SCH ×2 (08:02→18:51)
[2019-03-21] MEDS: POLYVINYL ALCOHOL OPHT DROPS 15 ML BOTTLE EACHEYE SCH ×3 (08:36→16:38)
[2019-03-21] MEDS: AMLODIPINE 5 MG TABLET PO SCH (08:37)
[2019-03-21] MEDS: CARBIDOPA/LEVODOPA 25-100MG TABLET PO SCH ×2 (08:37→16:38)
[2019-03-21] MEDS: ENSURE WITH FIBER 237 ML LIQUID (CHOCOLATE) PO SCH ×3 (08:37→16:39)
[2019-03-21] MEDS: ACIDOPHILUS/BULGARICUS CHEW TAB PO SCH ×2 (08:37→16:38)
[2019-03-21] MEDS: CARVEDILOL 6.25 MG TABLET PO SCH ×2 (08:38→17:20)
[2019-03-21] MEDS: MIRALAX 17 GM POWD.PACK PO SCH (08:40)
[2019-03-21] MEDS: CLOTRIMAZOLE 1% CREAM 30 GM TUBE TOP SCH ×2 (08:40→16:39)
[2019-03-21] MEDS: Z GUARD REMEDY PASTE 57 GM TUBE TOP SCH ×2 (08:41→20:51)
[2019-03-21] MEDS: IPRATROPIUM BROMIDE 0.5 MG/2.5 ML NEBU NEB PRN (13:27)
[2019-03-21] MEDS: ALBUTEROL SULFATE 2.5 MG/3 ML NEBU IH PRN (13:27)
--- NOTE | 2019-03-21 14:02 | NUR ---
Patient continue on aspiration precaution maintained for dysphagia. On puree diet. no choking episode noted. Following by speech therapist. Continue D5 NS 1000ml if needed for meal replacement. Consumed meals brought by family this family. will continue monitor
[2019-03-21 16:17] VITALS: BP 132/73
--- NOTE | 2019-03-21 16:46 | NUR ---
As per , Patient refuse IV hydration, complaint of discomfort. MD Lu aware. will continue monitor
[2019-03-21] MEDS: HYDROCODONE/APAP 5-325MG TABLET PO PRN (19:03)
[2019-03-21 20:11] VITALS: BP 140/68
[2019-03-21] MEDS: AMITRIPTYLINE HCL 10 MG TABLET PO SCH (20:52)
[2019-03-21] MEDS: DOCUSATE SODIUM 100 MG CAPSULE PO SCH (20:52)
--- NOTE | 2019-03-22 05:12 | NUR ---
PATIENT SLEPT COMFORTABLY ALL NIGHT. ALL PRESCRIBED MEDICATIONS GIVEN ORDERED AND TOLERATED WELL. SAFETY AND FALL PRECAUTIONS IN PLACE. ASPIRATION PRECAUTIONS IN PLACE AND FOLLOWED. BED IN LOWEST POSITION WITH BRAKE APPLIED. 2 SIDE RAILS UP AND IN LOCKED POSITION. CALL LIGHT WITHIN REACH AT ALL TIMES. PATIENT KEPT WARM AND DRY THROUGHOUT SHIFT
[2019-03-22 06:30] VITALS: BP 156/73
[2019-03-22] MEDS: BUDESONIDE 0.25 MG/2 ML NEBU IH SCH ×2 (07:05→18:51)
[2019-03-22 07:30] VITALS: BP 160/83
--- NOTE | 2019-03-22 08:15 | NUR ---
Received patient, awake, alert x2-3. Not in any form of distress. Took medications with pudding, tolerated well. No S/S of aspiration. Patient refused IV fluids, discussed risks and benefits but patient still refused. Patient on O2 at 2lpm, NC not in any form of distress, no SOB noted.
[2019-03-22] MEDS: ACIDOPHILUS/BULGARICUS CHEW TAB PO SCH ×2 (08:20→17:27)
[2019-03-22] MEDS: AMLODIPINE 5 MG TABLET PO SCH (08:20)
[2019-03-22] MEDS: CARBIDOPA/LEVODOPA 25-100MG TABLET PO SCH ×2 (08:20→17:27)
[2019-03-22] MEDS: CARVEDILOL 6.25 MG TABLET PO SCH ×2 (08:21→17:27)
[2019-03-22] MEDS: POLYVINYL ALCOHOL OPHT DROPS 15 ML BOTTLE EACHEYE SCH ×3 (08:29→17:28)
[2019-03-22] MEDS: MIRALAX 17 GM POWD.PACK PO SCH (08:29)
[2019-03-22] MEDS: ENSURE WITH FIBER 237 ML LIQUID (CHOCOLATE) PO SCH ×3 (08:30→17:28)
[2019-03-22] MEDS: CLOTRIMAZOLE 1% CREAM 30 GM TUBE TOP SCH ×2 (08:36→17:28)
[2019-03-22] MEDS: Z GUARD REMEDY PASTE 57 GM TUBE TOP SCH ×2 (08:38→21:52)
--- NOTE | 2019-03-22 09:00 | NUR ---
mine shifter at bedside. Patient was given pancakes for breakfast, finely chopped by retail personal banker. Discussed risks and instructed caregiver on diet ordered and aspiration precautions.
--- NOTE | 2019-03-22 10:00 | NUR ---
Up with occupational therapy, tolerating well. Able to ambulate with front wheel walker on O2 at 2lpm.
[2019-03-22] MEDS: IV D5/ 0.9% NACL 1,000 ML IV PRN (11:25)
[2019-03-22] MEDS: ALBUTEROL SULFATE 2.5 MG/3 ML NEBU IH PRN (12:53)
[2019-03-22] MEDS: IPRATROPIUM BROMIDE 0.5 MG/2.5 ML NEBU NEB PRN (12:53)
--- NOTE | 2019-03-22 13:30 | NUR ---
INTERDISCIPLINARY TEAM CONFERENCE
[2019-03-22 15:00] VITALS: BP 124/62
[2019-03-22 20:04] VITALS: BP 136/55
[2019-03-22] MEDS: AMITRIPTYLINE HCL 10 MG TABLET PO SCH (21:52)
[2019-03-22] MEDS: DOCUSATE SODIUM 100 MG CAPSULE PO SCH (21:52)
--- NOTE | 2019-03-23 03:41 | NUR ---
PATIENT ALERT ORIENTED BUT FORGETFUL NO SOB NO CHEST PAIN, CONT ON BREATHING TREATMENT FOR COPD EXACERBATION, ON 3LPM NC OXYGEN SAT 97%. PATIENT CONTINUE TO REFUSED IV D5 NS. PATIENT ON PUREED NECTAR THICKENED LIQUID. PATIENT HIGH RISK FOR ASPIRATION, KEPT HOB ELEVATED AT 45 DEGREE DURING MEALS, AND DURING MEDICATION ADMINISTRATION. PATIENT UNCOOPERATIVE WITH PRESCRIBED DIET TEXTURE PUREE, FAMILY BRINGS OUTSIDE FOOD. PATIENT CLOSELY MONITORED. CONT TO MONITOR.
[2019-03-23] MEDS: HYDROCODONE/APAP 5-325MG TABLET PO PRN (04:12)
[2019-03-23 04:30] VITALS: BP 119/58
[2019-03-23] MEDS: IPRATROPIUM BROMIDE 0.5 MG/2.5 ML NEBU NEB PRN (07:19)
[2019-03-23] MEDS: ALBUTEROL SULFATE 2.5 MG/3 ML NEBU IH PRN ×2 (07:19→20:19)
[2019-03-23] MEDS: BUDESONIDE 0.25 MG/2 ML NEBU IH SCH ×2 (07:19→20:20)
[2019-03-23 08:10] VITALS: BP 116/57
[2019-03-23] MEDS: ASPIRIN EC 81 MG TABLET.DR PO SCH (08:42)
[2019-03-23] MEDS: ENSURE WITH FIBER 237 ML LIQUID (CHOCOLATE) PO SCH ×3 (08:42→16:42)
[2019-03-23] MEDS: ACIDOPHILUS/BULGARICUS CHEW TAB PO SCH ×2 (08:42→16:41)
[2019-03-23] MEDS: CARBIDOPA/LEVODOPA 25-100MG TABLET PO SCH ×2 (08:42→16:41)
[2019-03-23] MEDS: CARVEDILOL 6.25 MG TABLET PO SCH ×2 (08:43→17:25)
[2019-03-23] MEDS: POLYVINYL ALCOHOL OPHT DROPS 15 ML BOTTLE EACHEYE SCH ×3 (08:43→16:42)
[2019-03-23] MEDS: MIRALAX 17 GM POWD.PACK PO SCH (08:43)
[2019-03-23] MEDS: AMLODIPINE 5 MG TABLET PO SCH (08:43)
[2019-03-23] MEDS: CLOTRIMAZOLE 1% CREAM 30 GM TUBE TOP SCH ×2 (08:44→16:42)
[2019-03-23] MEDS: Z GUARD REMEDY PASTE 57 GM TUBE TOP SCH ×2 (08:44→22:07)
--- NOTE | 2019-03-23 15:37 | NUR ---
Received patient awake in bed in stable condition. Continue oxygen via nasal cannula at 3 LPM. SPO2-96%. not in distress. Continue on aspiration precaution. Continue on puree with thickened liquid. tolerated well. consumed about 25% of breakfast, refuse lunch meal, vanilla pudding given. aware .refuse IV hydration. MD aware. Continue therapy for ambulation, ADL, transfer and muscle weakness. tolerated well. will continue monitor
[2019-03-23 16:40] VITALS: BP 131/56
[2019-03-23] MEDS ORDERED: LIDOCAINE HCL 1% 20 ML VIAL IJ PRN (17:45)
[2019-03-23] MEDS ORDERED: TRIAMCINOLONE ACETONIDE 40 MG/1 ML VIAL IM ONE (17:45)
--- NOTE | 2019-03-23 18:07 | NUR ---
Patient seen and ordered triamcinolone joint injection for right shoulder pain by MD Muse. no complaint voiced. will continue monitor
--- NOTE | 2019-03-23 19:00 | NUR ---
PATIENT ALERT NO COMPLAIN OF PAIN AT THIS TIME. HOB ELEVATED PATIENT HAS EPISODES OF NON PRODUCTIVE COUGH. KEPT HOB ELEVATED ON 3LPM OXYGEN FOR SOB, NO S/S OF DESATURATION. KEPT CLEAN AND DRY. CALL LIGHT WITHIN REACH.
[2019-03-23 20:17] VITALS: BP 119/56
[2019-03-23] MEDS: AMITRIPTYLINE HCL 10 MG TABLET PO SCH (22:06)
[2019-03-23] MEDS: DOCUSATE SODIUM 100 MG CAPSULE PO SCH (22:07)
[2019-03-24] MEDS: ALBUTEROL SULFATE 2.5 MG/3 ML NEBU IH PRN ×3 (01:55→13:14)
[2019-03-24] MEDS: IPRATROPIUM BROMIDE 0.5 MG/2.5 ML NEBU NEB PRN ×2 (01:55→13:14)
[2019-03-24 06:23] VITALS: BP 146/75
--- NOTE | 2019-03-24 06:51 | NUR ---
PATIENT SLEPT MOST OF THE NIGHT. HOB ELEVATED, WITH EPISODE OF NON PRODUCTIVE COUGH WHEN GIVEN CRUSH MEDICATION WITH VANILLA PUDDING. PATIENT REFUSED TO DRINK THICKENED WATER, PREFER THICKENED ENSURES, CONT ON HHN TX FOR COPD. AFEBRILE CONT TO MONITOR.
[2019-03-24] MEDS: BUDESONIDE 0.25 MG/2 ML NEBU IH SCH ×2 (07:28→19:07)
[2019-03-24] MEDS: AMLODIPINE 5 MG TABLET PO SCH (08:27)
[2019-03-24] MEDS: CARBIDOPA/LEVODOPA 25-100MG TABLET PO SCH ×2 (08:27→16:27)
[2019-03-24] MEDS: ACIDOPHILUS/BULGARICUS CHEW TAB PO SCH ×2 (08:27→16:27)
[2019-03-24] MEDS: ENSURE WITH FIBER 237 ML LIQUID (CHOCOLATE) PO SCH ×3 (08:28→16:28)
[2019-03-24] MEDS: MIRALAX 17 GM POWD.PACK PO SCH (08:28)
[2019-03-24] MEDS: CARVEDILOL 6.25 MG TABLET PO SCH ×2 (08:28→17:32)
[2019-03-24] MEDS: POLYVINYL ALCOHOL OPHT DROPS 15 ML BOTTLE EACHEYE SCH ×3 (08:28→16:28)
[2019-03-24] MEDS: CLOTRIMAZOLE 1% CREAM 30 GM TUBE TOP SCH ×2 (08:29→16:28)
[2019-03-24] MEDS: Z GUARD REMEDY PASTE 57 GM TUBE TOP SCH ×2 (08:29→20:29)
[2019-03-24 09:09] VITALS: BP 134/62
--- NOTE | 2019-03-24 09:28 | NUR ---
Received pt. on bed, comfortable in no distress. A/Ox3 verbally responsive and able to make his needs known through communication board. Denies CP or SOB, on 3 LPM via NC. All due medications administered as ordered and tolerated well. All pt. needs attended and met promptly. Safety measures in place. Call light and all frequently used items within pt. reach.
[2019-03-24 17:57] VITALS: BP 122/54
--- NOTE | 2019-03-24 18:37 | NUR ---
End of shift note: No sign of acute distress or SOB was noted. Kept pt clean and dry throughout this shift. Safety measures maintained. All needs attended and met promptly. Bed in low position, brake on, side rails up x2 as an enabler. Call light and all frequently used items within pt. reach. Will endorse to next shift accordingly
--- NOTE | 2019-03-24 19:50 | NUR ---
Alert and oriented x 2-3. Patient sleeping when nurse entered room. Arousable to verbal and tactile stimuli. Patient able to make needs known through communication board. No C/O SOB, pain, or distress on 3 LPM via NC. All pt. needs attended to and met promptly. Safety measures in place. Call light and all frequently used items within patient reach. Will continue to monitor.
[2019-03-24] MEDS: DOCUSATE SODIUM 100 MG CAPSULE PO SCH (20:28)
[2019-03-24] MEDS: AMITRIPTYLINE HCL 10 MG TABLET PO SCH (20:29)
[2019-03-24 21:54] VITALS: BP 126/57
[2019-03-24] MEDS: TEMAZEPAM 15 MG CAPSULE PO PRN (21:54)
[2019-03-25] MEDS: ALBUTEROL SULFATE 2.5 MG/3 ML NEBU IH PRN ×4 (01:02→19:36)
[2019-03-25] MEDS: IPRATROPIUM BROMIDE 0.5 MG/2.5 ML NEBU NEB PRN ×3 (01:02→19:36)
[2019-03-25 04:30] VITALS: BP 135/61
--- NOTE | 2019-03-25 06:44 | NUR ---
Patient slept well during coordinator of online programs. All due medications given-tolerated well. Side rails up bilaterally for safety. Call light and frequently used items within reach. Will endorse to oncoming shift accordingly.
[2019-03-25] MEDS: BUDESONIDE 0.25 MG/2 ML NEBU IH SCH ×2 (07:30→19:36)
--- NOTE | 2019-03-25 07:54 | NUR ---
Patient noted sitting up in chair, noted refusing breathing treatment, call light in reach, no complaints of pain noted, no signs of distress, all needs met at this time
[2019-03-25 08:00] VITALS: BP 147/68
[2019-03-25] MEDS: ACIDOPHILUS/BULGARICUS CHEW TAB PO SCH ×2 (08:51→17:39)
[2019-03-25] MEDS: CARBIDOPA/LEVODOPA 25-100MG TABLET PO SCH ×2 (08:51→17:39)
[2019-03-25] MEDS: AMLODIPINE 5 MG TABLET PO SCH (08:51)
[2019-03-25] MEDS: POLYVINYL ALCOHOL OPHT DROPS 15 ML BOTTLE EACHEYE SCH ×3 (08:52→17:38)
[2019-03-25] MEDS: MIRALAX 17 GM POWD.PACK PO SCH (08:52)
[2019-03-25] MEDS: CARVEDILOL 6.25 MG TABLET PO SCH ×2 (08:52→17:41)
[2019-03-25] MEDS: Z GUARD REMEDY PASTE 57 GM TUBE TOP SCH ×2 (08:53→20:53)
[2019-03-25] MEDS: CLOTRIMAZOLE 1% CREAM 30 GM TUBE TOP SCH ×2 (08:53→17:39)
[2019-03-25] MEDS: ENSURE WITH FIBER 237 ML LIQUID (CHOCOLATE) PO SCH ×3 (09:05→17:39)
[2019-03-25] MEDS: IV D5/ 0.9% NACL 1,000 ML IV PRN (09:49)
[2019-03-25 16:00] VITALS: BP 119/52
--- NOTE | 2019-03-25 18:18 | NUR ---
IV placed in left wrist 22 guage D5W fluids running at 75 ml/hr patient able to tolerate 3 cups of vanilla pudding
[2019-03-25] MEDS: AMITRIPTYLINE HCL 10 MG TABLET PO SCH (20:53)
[2019-03-25] MEDS: DOCUSATE SODIUM 100 MG CAPSULE PO SCH (20:53)
[2019-03-25 20:57] VITALS: BP 128/56
[2019-03-25] MEDS: TEMAZEPAM 15 MG CAPSULE PO PRN (22:21)
--- NOTE | 2019-03-26 01:13 | NUR ---
Received pt in bed, AAO x 2-3 watching television. No acute distress noted. Able to show nonverbal cues or point to communication paper in order to communicate needs. Denies pain or discomfort. No facial indications of pain noted. All due medications given whole, one by one with vanilla pudding. No s/s aspiration noted. Tolerated medication well. On 2LPM NC, tolerated well. Noted with left wrist 22g running IVF D5NS @ 75 cc/hr, no s/s infiltration noted. Bed locked, in lowest position with side rails up x 2. All safety measures and fall precautions maintained. Call light and all personal belongings within reach. Will continue to monitor.
[2019-03-26] MEDS: IPRATROPIUM BROMIDE 0.5 MG/2.5 ML NEBU NEB PRN ×3 (01:29→18:44)
[2019-03-26] MEDS: ALBUTEROL SULFATE 2.5 MG/3 ML NEBU IH PRN ×3 (01:29→18:44)
[2019-03-26] MEDS: IV D5/ 0.9% NACL 1,000 ML IV PRN ×2 (03:47→21:50)
[2019-03-26 04:30] VITALS: BP 137/63
[2019-03-26 07:04] LABS: BASOPHILS % (AUTO) 0.3 % (0.0-2.0); EOSINOPHILS # (AUTO) 0.1 K/uL (0.0-0.7); EOSINOPHILS % (AUTO) 1.5 % (0.0-7.0); HEMATOCRIT 35.7 % (36.7-47.1); HEMOGLOBIN 11.8 g/dL (12.5-16.3); LYMPHOCYTES # (AUTO) 1.7 K/uL (20.0-40.0); LYMPHOCYTES % (AUTO) 36.3 % (20.5-51.5); MEAN CORPUSCULAR HEMOGLOBIN 31.7 uug (23.8-33.4); MEAN CORPUSCULAR HGB CONC 33 g/dL (32.5-36.3); MEAN CORPUSCULAR VOLUME 95.3 fL (73.0-96.2); MONOCYTES # (AUTO) 0.5 K/uL (2.0-10.0); NEUTROPHILS # (AUTO) 2.5 K/uL (1.8-8.9); NEUTROPHILS % (AUTO) 51.9 % (38.5-71.5); PLATELET COUNT (AUTO) 170 K/uL (152-348); RED BLOOD CELL COUNT(AUTO) 3.74 MIL/uL (4.06-5.63); WHITE BLOOD COUNT (AUTO) 4.8 K/uL (3.6-10.2)
[2019-03-26] MEDS: BUDESONIDE 0.25 MG/2 ML NEBU IH SCH ×2 (07:04→18:44)
[2019-03-26 07:13] LABS: CARBON DIOXIDE 30 mmol/L (21-32); CHLORIDE 103 mmol/L (98-107); CREATININE 0.8 mg/dL (0.6-1.3); GLUCOSE 99 mg/dL (74-106); PHOSPHOROUS 3.4 mg/dL (2.5-4.9); POTASSIUM 4.1 mmol/L (3.5-5.1); UREA NITROGEN, BLOOD 15 mg/dL (7-18)
--- NOTE | 2019-03-26 07:45 | NUR ---
Patient awake, alert, sitting up on the wheelchair, on O2 via NC at 2LPM, not in any form of distress, with personal property appraiser at bedside. Left wrist IV site G22 in place and patent. Patient denies any pain or discomfort at this time. Call light placed within reach.
[2019-03-26 08:00] VITALS: BP 140/66
[2019-03-26] MEDS: CARBIDOPA/LEVODOPA 25-100MG TABLET PO SCH ×2 (08:55→17:28)
[2019-03-26] MEDS: ACIDOPHILUS/BULGARICUS CHEW TAB PO SCH ×2 (08:55→17:28)
[2019-03-26] MEDS: POLYVINYL ALCOHOL OPHT DROPS 15 ML BOTTLE EACHEYE SCH ×3 (08:55→17:28)
[2019-03-26] MEDS: ASPIRIN EC 81 MG TABLET.DR PO SCH (08:55)
[2019-03-26] MEDS: MIRALAX 17 GM POWD.PACK PO SCH (08:56)
[2019-03-26] MEDS: AMLODIPINE 5 MG TABLET PO SCH (08:57)
[2019-03-26] MEDS: CARVEDILOL 6.25 MG TABLET PO SCH ×2 (08:57→17:33)
[2019-03-26] MEDS: ENSURE WITH FIBER 237 ML LIQUID (CHOCOLATE) PO SCH ×3 (08:58→17:34)
[2019-03-26] MEDS: CLOTRIMAZOLE 1% CREAM 30 GM TUBE TOP SCH ×2 (09:17→17:35)
[2019-03-26] MEDS: Z GUARD REMEDY PASTE 57 GM TUBE TOP SCH ×2 (09:18→20:29)
--- NOTE | 2019-03-26 10:40 | NUR ---
Patient seen and examined by Dr. Vela with no new order.
[2019-03-26 16:00] VITALS: BP 130/61
--- NOTE | 2019-03-26 19:35 | NUR ---
Alert and oriented x 2-3. Patient able to make needs known through communication board. No C/O SOB, pain, or distress on 2 LPM via NC. Sacral dressing changed. photos taken of wounds. All pt. needs attended to and met promptly. Safety measures in place. Call light and all frequently used items within patient reach. Will continue to monitor.
[2019-03-26] MEDS: AMITRIPTYLINE HCL 10 MG TABLET PO SCH (20:28)
[2019-03-26] MEDS: DOCUSATE SODIUM 100 MG CAPSULE PO SCH (20:29)
[2019-03-26 22:19] VITALS: BP 134/68
[2019-03-26] MEDS: TEMAZEPAM 15 MG CAPSULE PO PRN (22:48)
[2019-03-27] MEDS: ALBUTEROL SULFATE 2.5 MG/3 ML NEBU IH PRN ×3 (00:57→15:18)
[2019-03-27] MEDS: IPRATROPIUM BROMIDE 0.5 MG/2.5 ML NEBU NEB PRN ×3 (00:57→15:18)
[2019-03-27 05:18] VITALS: BP 154/71
--- NOTE | 2019-03-27 06:46 | NUR ---
Patient slept well during night warehouse selector. Sleeping medication given x 1. All due medications given-tolerated well. Side rails up bilaterally for safety. Call light and frequently used items within reach. Will endorse to oncoming shift accordingly.
[2019-03-27 08:00] VITALS: BP 114/69
[2019-03-27] MEDS: CARVEDILOL 6.25 MG TABLET PO SCH ×2 (08:00→18:45)
--- NOTE | 2019-03-27 08:00 | NUR ---
Patient awake, alert, not in any distress, sitting up on the chair having breakfast with retail personal banker at bedside. Patient denies any pain or discomfort. Peripheral line on right forearm intact and patent. Assisted with his needs. Call light placed within reach.
[2019-03-27] MEDS: POLYVINYL ALCOHOL OPHT DROPS 15 ML BOTTLE EACHEYE SCH ×3 (08:28→17:20)
[2019-03-27] MEDS: ENSURE WITH FIBER 237 ML LIQUID (CHOCOLATE) PO SCH ×3 (08:29→17:20)
[2019-03-27] MEDS: ACIDOPHILUS/BULGARICUS CHEW TAB PO SCH ×2 (08:30→17:14)
[2019-03-27] MEDS: CARBIDOPA/LEVODOPA 25-100MG TABLET PO SCH ×2 (08:30→17:15)
[2019-03-27] MEDS: MIRALAX 17 GM POWD.PACK PO SCH (08:31)
[2019-03-27] MEDS: CLOTRIMAZOLE 1% CREAM 30 GM TUBE TOP SCH ×2 (08:31→17:22)
[2019-03-27] MEDS: Z GUARD REMEDY PASTE 57 GM TUBE TOP SCH ×2 (08:32→20:33)
[2019-03-27] MEDS: AMLODIPINE 5 MG TABLET PO SCH (09:50)
[2019-03-27] MEDS: BUDESONIDE 0.25 MG/2 ML NEBU IH SCH ×2 (11:48→19:10)
--- NOTE | 2019-03-27 14:00 | NUR ---
Informed that right forearm IV line is out and needs to be reinserted but refused to have new line inserted for now.
[2019-03-27 17:30] VITALS: BP 135/61
--- NOTE | 2019-03-27 19:48 | NUR ---
Patient received in bed, watching TV. Alert and oriented x 2-3. Patient able to make needs known through communication board. No C/O SOB, pain, or distress on 2 LPM via NC. All pt. needs attended to and met promptly. Side rails up bilaterally for saefty. Call light and all frequently used items within patient reach. Will continue to monitor.
[2019-03-27] MEDS: AMITRIPTYLINE HCL 10 MG TABLET PO SCH (20:33)
[2019-03-27] MEDS: DOCUSATE SODIUM 100 MG CAPSULE PO SCH (20:33)
[2019-03-27 21:13] VITALS: BP 119/53
[2019-03-27] MEDS: IV D5/ 0.9% NACL 1,000 ML IV PRN (21:36)
--- NOTE | 2019-03-27 21:46 | NUR ---
Spoke with Christine regarding re-starting IV fluids. She agreed to insert a line. IV re-inserted into right forearm and IV fluids started at 75 mL an hour. Will continue to monitor.
[2019-03-27] MEDS: TEMAZEPAM 15 MG CAPSULE PO PRN (22:01)
[2019-03-28 04:52] VITALS: BP 159/69
--- NOTE | 2019-03-28 06:49 | NUR ---
Patient slept on and off during shift. Sleeping medication given x 1. IV running D5NS @ 75 mL/HR. All due medications given-tolerated well. Side rails up bilaterally for safety. Call light and frequently used items within reach. Will endorse to oncoming shift accordingly.
[2019-03-28] MEDS: IPRATROPIUM BROMIDE 0.5 MG/2.5 ML NEBU NEB PRN (07:31)
[2019-03-28] MEDS: ALBUTEROL SULFATE 2.5 MG/3 ML NEBU IH PRN (07:31)
[2019-03-28] MEDS: BUDESONIDE 0.25 MG/2 ML NEBU IH SCH ×2 (07:31→19:13)
[2019-03-28] MEDS: ACIDOPHILUS/BULGARICUS CHEW TAB PO SCH ×2 (08:50→16:35)
[2019-03-28] MEDS: CARBIDOPA/LEVODOPA 25-100MG TABLET PO SCH ×2 (08:50→16:36)
[2019-03-28] MEDS: AMLODIPINE 5 MG TABLET PO SCH (08:51)
[2019-03-28] MEDS: CARVEDILOL 6.25 MG TABLET PO SCH ×2 (08:51→17:07)
[2019-03-28] MEDS: ENSURE WITH FIBER 237 ML LIQUID (CHOCOLATE) PO SCH ×3 (08:51→16:36)
[2019-03-28] MEDS: Z GUARD REMEDY PASTE 57 GM TUBE TOP SCH ×2 (08:52→20:26)
[2019-03-28] MEDS: CLOTRIMAZOLE 1% CREAM 30 GM TUBE TOP SCH ×2 (08:52→16:36)
[2019-03-28] MEDS: POLYVINYL ALCOHOL OPHT DROPS 15 ML BOTTLE EACHEYE SCH ×3 (08:52→16:36)
[2019-03-28] MEDS: MIRALAX 17 GM POWD.PACK PO SCH (08:52)
--- NOTE | 2019-03-28 09:00 | NUR ---
Received pt. on bed, comfortable in no distress. A/Ox3 verbally responsive and able to make his needs known through communication board. Denies CP or SOB, on 3 LPM via NC. All due medications administered as ordered and tolerated well. RAC IV patent intact w/ D5NS infusing at 75CC/hr. All pt. needs attended and met promptly. Safety measures in place. Call light and all frequently used items within pt. reach.
[2019-03-28 09:10] VITALS: BP 157/71
--- NOTE | 2019-03-28 09:50 | NUR ---
Pt. requested to remove RAC PIV due to discomfort. Refused to have new IV placed. Risk and benefits discussed and explained to pt. Pt. adamant about not having IV. Pt. request honored. D/Cd PIV on RAC and tolerated well.
[2019-03-28 16:51] VITALS: BP 130/63
--- NOTE | 2019-03-28 18:15 | NUR ---
End of shift note: No sign of acute distress or SOB was noted. Kept pt clean and dry throughout this shift. Pt. showered today. No new skin condition. Safety measures maintained. All needs attended and met promptly. Bed in low position, brake on, side rails up x2 as an enabler. Call light and all frequently used items within pt. reach. Will endorse to next shift accordingly
--- NOTE | 2019-03-28 19:45 | NUR ---
Patient received in bed, watching TV. Alert and oriented x 2-3. Patient able to make needs known through communication board. No C/O SOB, pain, or distress on 2 LPM via NC. Side rails up bilaterally for safety. Call light and all frequently used items within patient reach. Will continue to monitor.
[2019-03-28 19:58] VITALS: BP 131/60
[2019-03-28] MEDS: AMITRIPTYLINE HCL 10 MG TABLET PO SCH (20:26)
[2019-03-28] MEDS: DOCUSATE SODIUM 100 MG CAPSULE PO SCH (20:26)
[2019-03-28] MEDS: HYDROCODONE/APAP 5-325MG TABLET PO PRN (23:02)
[2019-03-29 05:52] VITALS: BP 122/56
--- NOTE | 2019-03-29 06:51 | NUR ---
Patient slept on and off during shift. [place] given for pain management. All due medications given-tolerated well. Side rails up bilaterally for safety. Call light and frequently used items within reach. Will endorse to oncoming shift accordingly.
--- NOTE | 2019-03-29 08:00 | NUR ---
Received patient awake, alert x2-3. Resting in bed, assisted to chair. With O2 at 2lpm. Sating well. Not in any form of distress. Tolerated breakfast well, no s/s of aspiration. No SOB noted. Not in apparent pain.
[2019-03-29 08:10] VITALS: BP 143/62
[2019-03-29] MEDS: IPRATROPIUM BROMIDE 0.5 MG/2.5 ML NEBU NEB PRN (08:19)
[2019-03-29] MEDS: ALBUTEROL SULFATE 2.5 MG/3 ML NEBU IH PRN ×2 (08:19→15:24)
[2019-03-29] MEDS: BUDESONIDE 0.25 MG/2 ML NEBU IH SCH (08:19)
[2019-03-29] MEDS: CARBIDOPA/LEVODOPA 25-100MG TABLET PO SCH ×2 (08:20→17:04)
[2019-03-29] MEDS: ACIDOPHILUS/BULGARICUS CHEW TAB PO SCH ×2 (08:20→17:04)
[2019-03-29] MEDS: CARVEDILOL 6.25 MG TABLET PO SCH ×2 (08:21→17:04)
[2019-03-29] MEDS: AMLODIPINE 5 MG TABLET PO SCH (08:21)
[2019-03-29] MEDS: MIRALAX 17 GM POWD.PACK PO SCH (08:21)
[2019-03-29] MEDS: CLOTRIMAZOLE 1% CREAM 30 GM TUBE TOP SCH ×2 (08:44→17:05)
[2019-03-29] MEDS: ENSURE WITH FIBER 237 ML LIQUID (CHOCOLATE) PO SCH ×3 (08:44→17:04)
[2019-03-29] MEDS: POLYVINYL ALCOHOL OPHT DROPS 15 ML BOTTLE EACHEYE SCH ×3 (08:44→17:03)
[2019-03-29] MEDS: Z GUARD REMEDY PASTE 57 GM TUBE TOP SCH (08:45)
--- NOTE | 2019-03-29 09:00 | NUR ---
Refused IV insertion for IV hydration. Discussed risks and benefits but patient still refused IV insertion.
--- NOTE | 2019-03-29 15:23 | NUR ---
Discharge ordered obtained from Dr Muse. Instructed , Christine of follow up with Dr Layne after 10 days said she will make arrangements, number for Dr Layne provided. Instructed about discharge packet, education and discharge prescription. Instructed caregiver about Puree diet, honey thickened liquids and aspiration precautions during meals. Routine discharge care done.
[2019-03-29 16:51] VITALS: BP 125/71
[2019-03-29 17:04] VITALS: BP 125/71
--- NOTE | 2019-03-29 17:15 | NUR ---
Discharge to home accompanied by ambulance staff. Patient in stable condition, not in any form of distress. Refused O2, no SOB noted. Discussed risks of not having O2 but patient said he was OK. Discharge to home per kaylyn accompanied by ambulance staff.
== END 2019-03-29 17:15 | disposition home health service (06) | DRG 189 ==
LOC: SA1 16:29
PROVIDERS: ADMIT Physical Medicine & Rehabilitation Pain Medicine; ATTEND Physical Medicine & Rehabilitation Pain Medicine
DX: J96.21 Acute and chronic respiratory failure with hypoxia (principal); G92 Toxic encephalopathy; J44.1 Chronic obstructive pulmonary disease with (acute) exacerbation; D68.59 Other primary thrombophilia; E44.0 Moderate protein-calorie malnutrition; D61.818 Other pancytopenia; G23.1 Progressive supranuclear ophthalmoplegia [Steele-Richardson-Olszewski]; J84.9 Interstitial pulmonary disease, unspecified; E78.5 Hyperlipidemia, unspecified; G20 Parkinson's disease; G89.29 Other chronic pain; M25.511 Pain in right shoulder; I25.10 Atherosclerotic heart disease of native coronary artery without angina pectoris; I10 Essential (primary) hypertension; I25.2 Old myocardial infarction; Z95.5 Presence of coronary angioplasty implant and graft; R13.10 Dysphagia, unspecified; Z68.27 Body mass index [BMI] 27.0-27.9, adult; D53.9 Nutritional anemia, unspecified; F02.80 Dementia in other diseases classified elsewhere, unspecified severity, without behavioral disturbance, psychotic disturbance, mood disturbance, and anxiety; I70.0 Atherosclerosis of aorta; F41.9 Anxiety disorder, unspecified; Z91.81 History of falling; R29.6 Repeated falls; R26.9 Unspecified abnormalities of gait and mobility; K21.9 Gastro-esophageal reflux disease without esophagitis; K57.90 Diverticulosis of intestine, part unspecified, without perforation or abscess without bleeding; K59.09 Other constipation; M51.36 Other intervertebral disc degeneration, lumbar region; M85.80 Other specified disorders of bone density and structure, unspecified site; Z66 Do not resuscitate; Z87.01 Personal history of pneumonia (recurrent); R53.81 Other malaise; M19.90 Unspecified osteoarthritis, unspecified site; N40.0 Benign prostatic hyperplasia without lower urinary tract symptoms; Z91.19 Patient's noncompliance with other medical treatment and regimen
CPT/HCPCS: 36415; 71045; 73610; 83735; 84100; 85025; 92523; 92526; 92610; 94640; 97110; 97112; 97116; 97165; 97530; 97535; A4663; J3301; J3490; J3590; J7042; J7070